=== PATIENT | male | born 1930 | race Caucasian/White ===

== ENCOUNTER 2017-08-25 05:52 | Day surgery (SDC) | payer MEDICARE, BC ==
--- NOTE | 2017-06-22 19:06 | HP ---
CC: Dr. Mcneil * PREOPERATIVE HISTORY AND PHYSICAL: DATE OF ADMISSION: 07/07/17 This patient is scheduled for same-day surgery admission by Dr. Ackerman on 07/07/17. DATE OF EXAM: 06/22/17. ATTENDING SURGEON: Dr. Alexandre Ackerman * (dictated by Naomi Bledsoe NP). CHIEF COMPLAINT: Right inguinal hernia. HISTORY OF PRESENT ILLNESS: The patient is an 87-year-old male, recently evaluated by Dr. Ackerman for right inguinal hernia. The patient noticed a bulge in the right groin approximately 10 days ago, one day after he was throwing apples to deer in his backyard. He states that he was throwing them in an awkward way. He denies any pain at the site and it reduces spontaneously when he lies down. He denies any signs or symptoms to suggest incarceration or strangulation. Previous abdominal surgery was appendectomy in [address]. Dr. Ackerman examined the patient and noted a reducible right inguinal hernia bulge. He reviewed the findings with the patient and has recommended open right inguinal hernia repair with mesh as a same-day surgery procedure. Dr. Ackerman described the nature of the surgical procedure, the rationale for the procedure, the relevant risks and benefits and today I reviewed the expected postoperative care and recovery and provided written instructions as well. The patient has had a chance to ask questions and stated that he understands the information and is satisfied with the answers given to his questions. He will sign surgical consent on the day of surgery. PAST MEDICAL HISTORY: Significant for hypertension, benign prostatic hypertrophy, essentially asymptomatic degenerative joint disease, and rheumatoid arthritis. PAST SURGICAL HISTORY: Appendectomy in 193. MEDICATIONS: 1. Folic acid 1 mg p.o. daily. 2. Flomax 0.4 mg p.o. daily. 3. Verapamil ER 240 mg p.o. daily. 4. Multivitamin with minerals 1 tablet daily. 5. Vitamin D3, 1000 International Units 2 tablets daily. 6. Triamterene and hydrochlorothiazide 37.5/25 mg 1 tablet daily. ALLERGIES: AMOXICILLIN and PENICILLIN have caused anaphylaxis; IBUPROFEN causes GI upset, CIPRO caused muscle pain and dizziness. FAMILY HISTORY: No known anesthesia complications, bleeding tendencies or clotting disorders. SOCIAL HISTORY: He is ; he has a friend, who will accompany him on the day of surgery and will stay with him postoperatively. He is a former smoker; he denies the use of alcohol or other substances. REVIEW OF SYSTEMS: Constitutional: No fevers or chills. No excessive fatigue or weight loss. Endocrine: No diabetes or thyroid disease. Hematologic: No easy bruising or bleeding. No previous blood transfusions. Respiratory: No dyspnea on exertion. No chronic cough. Cardiovascular: No anginal chest pain or palpitations. Gastrointestinal: No nausea, vomiting, diarrhea, GI bleeding, or constipation. No change in bowel habits. No heartburn. Genitourinary: Benign prostatic hypertrophy, followed by Dr. Hodge. No pain with urination. Musculoskeletal: Asymptomatic degenerative joint disease and rheumatoid arthritis at this time. Neurologic: No headache, blurred vision, areas of focal weakness or numbness. Normal gait. General: No previous anesthesia complications. No history of deep vein thrombosis or pulmonary embolism. No history of blood transfusions. PHYSICAL EXAMINATION GENERAL SURVEY: The patient is an 87-year-old male, well developed, well nourished, in no acute distress. VITAL SIGNS: Height 67 inches, weight 206 pounds, body mass index 32.3. Blood pressure 140/70, pulse 80 and regular, respiratory rate 16. HEENT: Benign. NECK: Supple. No cervical lymphadenopathy. LUNGS: Breath sounds bilaterally clear and equal. HEART: Regular rate and rhythm. No murmurs, or rubs. ABDOMEN: Soft, nondistended, nontender throughout. Well-healed surgical scar, right lower quadrant. Inguinal exam as done by Dr. Ackerman, revealed a reducible right inguinal hernia. No evidence of left inguinal hernia. Testicles normally descended. BACK: No CVA tenderness. EXTREMITIES: Warm without edema or skin ulcerations. NEUROLOGIC: Alert and oriented x3, steady gait. SKIN: Warm, dry, intact. IMPRESSION: Right inguinal hernia. PLAN: Same-day surgery admission to Dr. Ackerman's service on 07/07/17 , for open right inguinal hernia repair with mesh. NILSON BLEDSOE NP [id number]/[facility] #: [id number] [facility]PITALArash
--- NOTE | 2017-08-16 13:39 | HP ---
AMENDED REPORT NOW INCLUDES COSIGNER DESIGNATION - ESIGNED BEFORE ADJUSTMENT CC: Dr. Mcneil; Dr. Alexandre Mora * PREOPERATIVE HISTORY AND PHYSICAL: DATE OF ADMISSION: 08/25/17 - This patient is scheduled for same-day surgery admission by Dr. Ackerman, on 08/25/17. DATE OF PREOPERATIVE HISTORY AND PHYSICAL EXAMINATION: 08/16/17. ATTENDING SURGEON: Dr. Alexandre Ackerman* (dictated by Naomi Bledsoe NP). CHIEF COMPLAINT: Right inguinal hernia. HISTORY OF PRESENT ILLNESS: The patient is an 87-year-old male known to Dr. Ackerman with right inguinal hernia. The patient was initially scheduled for open repair of the right inguinal hernia with mesh in early July of 2017, but his EKG on pre- admission testing revealed atrial fibrillation and he was referred for cardiology workup. He has completed the workup and has been cleared to proceed with open repair of the right inguinal hernia with mesh as a same-day surgery procedure. He denies any current pain in the right inguinal region and the hernia reduces spontaneously when he lies down. He denies any signs or symptoms to suggest incarceration or strangulation. Previous abdominal surgery was appendectomy in [address]. Dr[address] Ackerman has examined the patient and notes a reducible right inguinal hernia bulge. He reviewed the findings with the patient and has recommended open right inguinal hernia repair with mesh as a same-day surgery procedure. Dr. Ackerman described the nature of the surgical procedure, the rationale for the procedure, the relevant risks and benefits, and today, I reviewed the expected postoperative care and recovery and provided written instructions as well. The patient has had a chance to ask questions and stated that he understands the information and is satisfied with the answers given to his questions. He will sign surgical consent on the day of surgery. PAST MEDICAL HISTORY: Significant for atrial fibrillation, hypertension, benign prostatic hypertrophy, heartburn, degenerative joint disease. PAST SURGICAL HISTORY: Open appendectomy in 1939. MEDICATIONS: 1. Eliquis 5 mg p.o. b.i.d. The patient was instructed to hold Eliquis on , 08/24/17, 08/25/17, and 08/26/17, and he was instructed to resume the Eliquis on the morning of 08/27/17. 2. Flomax 0.4 mg p.o. daily. 3. Folic acid 1 mg p.o. daily. 4. Multivitamin tablet daily. 5. Vitamin D3 1000 International Units 2 tablets daily. 6. Triamterene and hydrochlorothiazide 37.5/25 mg p.o. daily. ALLERGIES: AMOXICILLIN and PENICILLIN have caused anaphylaxis, IBUPROFEN causes GI upset, CIPRO caused muscle pain and dizziness. FAMILY HISTORY: No known anesthesia complications, bleeding tendencies, or clotting disorders. SOCIAL HISTORY: He is . He has a friend who will accompany him on the day of surgery and stay with him postoperatively. He is a former smoker, he denies use of alcohol or other substances. REVIEW OF SYSTEMS: Constitutional: No fevers or chills, no excessive fatigue or weight loss. Endocrine: No diabetes or thyroid disease. Hematologic: No previous blood transfusions; while he has been on Eliquis, he has noticed easy bruising and bleeding. Respiratory: No dyspnea on exertion. No chronic cough. Cardiovascular: No anginal chest pain or palpitations; he has been cleared by Dr. Mora from the [facility] to proceed with surgery; he was started on Eliquis for atrial fibrillation in July 2017; he underwent echocardiogram, 07/29/17, which revealed normal left ventricular size , [id number] LVH with ejection fraction of 60% to 65%. He underwent chemical nuclear stress test, which was within normal limits. There was no evidence of ischemia and there was no convincing evidence of infarction and there was normal left ventricular function. Gastrointestinal: No nausea, vomiting, diarrhea, GI bleeding, or constipation. No change in bowel habits. No recent heartburn. Genitourinary: Benign prostatic hypertrophy followed by Dr. Hodge. No dysuria at this time. Musculoskeletal: Asymptomatic degenerative joint disease. Neurologic: No headache or blurred vision or areas of focal weakness or numbness. Normal gait. General: No previous anesthesia complications. No history of deep vein thrombosis or pulmonary embolism. No history of blood transfusions. PHYSICAL EXAMINATION GENERAL SURVEY: The patient is an 87-year-old male, well-developed, well- nourished, in no acute distress. VITAL SIGNS: Height 67 inches, weight 196 pounds, blood pressure 118/64, pulse 60 and irregular, respiratory rate 16, temperature 97.3 tympanic, body mass index 30. HEENT: Benign. NECK: Supple. No cervical lymphadenopathy. LUNGS: Breath sounds bilaterally clear and equal. HEART: Slightly irregular rate and rhythm. No murmurs or rubs appreciated. ABDOMEN: Soft. Active bowel sounds. Nondistended and nontender throughout. Well- healed surgical scar, right lower quadrant; inguinal exam as done by Dr. Ackerman revealed a reducible right inguinal hernia, no evidence of left inguinal hernia; testicles normally descended. BACK: No CVA tenderness. EXTREMITIES: Warm without edema or skin ulcerations. NEUROLOGIC: Alert and oriented x3. Steady gait. SKIN: Warm, dry, and intact. IMPRESSION: Right inguinal hernia. PLAN: Same-day surgery admission to Dr. Ackerman's service, on 08/25/17 , for open right inguinal hernia repair with mesh. The patient will hold Eliquis preoperatively on 08/23/17, 08/24/17, and 08/25/17, and resume the Eliquis, on 08/27/17, in the morning. NILSON BLEDSOE, SMITHA [id number]/[facility] #: [id number] BEN
[~2017-08-25 05:52] MED LIST: Buffered Lidocaine 0.9% SYRIN* 5 ML/SYR SYRINGE INTRADERM ONE
[2017-08-25] MEDS ORDERED: Clindamycin 900 MG IVPREMIX(* 0 MG/0 ML SDV IV ONE (06:10)
[2017-08-25] MEDS ORDERED: Buffered Lidocaine 0.9% SYRIN* 5 ML/SYR SYRINGE ONE (06:11)
[2017-08-25] MEDS ORDERED: Lidocaine 1% INJ* 10 MG/ML 30 ML SDV ONE (07:18)
[2017-08-25] MEDS ORDERED: Bupivacaine 0.25% SDV* 30 ML ONE (07:18)
[2017-08-25] MEDS ORDERED: fentaNYL* 50 MCG/ML 2 ML VIAL (100 MCG VIAL) ONE (07:57)
[2017-08-25] MEDS ORDERED: Midazolam* 1 MG/ML 2 ML VIAL (2 MG) ONE ×2 (07:57→08:22)
[2017-08-25] MEDS ORDERED: Vancomycin(*) 1,000 MG in NS 0.9% 250 ML* 250 ML IVPB ONE (08:00)
[2017-08-25] MEDS ORDERED: Glycopyrrolate IV* 0.2 MG/ML 1 ML VIAL ONE (08:42)
[2017-08-25] MEDS ORDERED: Naloxone* 0.4 MG/ML 1 ML VIAL IV PRN (09:00)
[2017-08-25] MEDS ORDERED: Propofol* 10 MG/ML 20 ML BTL IV PUSH ONE (09:07)
--- NOTE | 2017-08-25 09:23 | BRIEFOPN ---
Brief Operative Note - Surgery Procedures: Procedures Pre-OP Diagnoses: Right inguinal hernia Post-op Diagnosis: same Procedure: open Right inguinal hernia repair with mesh Surgeon: Meka Asst: Lubna Anethesia: Local MAC EBL: 50cc IVF: crystalloid Specimen: none Drains: none
[2017-08-25] MEDS ORDERED: oxyCODONE/Acetamin 5/325 MG* TAB PO PRN (09:43)
[2017-08-25] MEDS ORDERED: oxyCODONE/Acetamin 5/325 MG* TAB ONE (09:49)
[2017-08-25 10:18] VITALS: BP 170/69
--- NOTE | 2017-09-16 16:50 | OP ---
CC: Dr. Paulo Mcneil * DATE OF OPERATION: 08/25/17 - [facility] Please note this is a late entry. DATE OF : 30 SURGEON: Alexandre Ackerman MD CORE CARRIER: JENARO Calvo ANESTHESIA: Local MAC. PRE-OP DIAGNOSIS: Right inguinal hernia. POST-OP DIAGNOSIS: Right inguinal hernia. OPERATIVE PROCEDURE: Open right inguinal hernia repair with mesh. ESTIMATED BLOOD LOSS: 50 cc of blood loss. FLUIDS: Crystalloid fluid was given. SPECIMEN: None. DRAINS: None. DESCRIPTION OF PROCEDURE: The patient was identified in the preoperative area, he was marked, brought to the OR, placed on the operating table in supine position. Anesthesia was delivered. The patient had preoperative antibiotics given. The right groin was clipped of hair and prepped and draped in standard surgical fashion and time-out was performed. An inguinal incision was made. This was deepened down through all the layers until we got down to the aponeurosis of the external oblique. This was incised along the fibers and flaps were made both cephalad and caudad. We isolated the cord structures and then set out looking for a hernia. We found a small indirect hernia sac. This was reduced. The floor of the inguinal canal appeared mildly weakened. We then opened up a right-sided mesh, Parietex version. This was placed over the herniation and tacked appropriately. We irrigated this. Hemostasis was excellent and then reapproximated the external oblique aponeurosis and closed the skin in the standard fashion. Sterile dressing was applied. The patient tolerated the procedure well, was transferred to the PACU in stable condition. [id number]/[facility] #: [id number] [facility]
== END 2017-08-25 10:21 | disposition home or self-care (01) ==
LOC: OR 05:52
PROVIDERS: ATTEND Surgery
DX: K40.90 Unilateral inguinal hernia, without obstruction or gangrene, not specified as recurrent (principal); I10 Essential (primary) hypertension; I48.91 Unspecified atrial fibrillation; N40.0 Benign prostatic hyperplasia without lower urinary tract symptoms; M06.9 Rheumatoid arthritis, unspecified; Z87.891 Personal history of nicotine dependence; Z79.01 Long term (current) use of anticoagulants; M19.90 Unspecified osteoarthritis, unspecified site
CPT/HCPCS: A9270-GY; C1781; J2250; J2704; J3010; J3370

== ENCOUNTER → 2018-02-16 07:02 | Day surgery (SDC) | payer MEDICARE, BC ==
--- NOTE | 2018-02-10 20:59 | HP ---
CC: Paulo Mcneil MD; Alexandre Mora DO * ADMITTING HISTORY AND PHYSICAL: DATE OF ADMISSION: 02/16/18 ADMITTING DIAGNOSES: 1. Prostate enlargement. 2. Urinary retention. PLANNED PROCEDURE: Transurethral resection of prostate. SURGEON: Dr. Hodge. HISTORY OF PRESENT ILLNESS: Papito Dow is an 87-year-old gentleman with a longstanding history of prostate enlargement. He has been on Flomax as well as finasteride, but for the last 4 to 5 months, he had an indwelling Trivedi catheter and has failed multiple voiding trials. He is now being brought in for transurethral resection of prostate in an attempt to try to get rid of the Trivedi catheter. PAST MEDICAL HISTORY: Significant for: 1. Atrial fibrillation. 2. Rheumatoid arthritis. 3. Hypertension. 4. BPH. 5. History of CVA. MEDICATIONS ON ADMISSION: Include: 1. Tamsulosin 0.4 mg. 2. Proscar 5 mg, which he has stopped as of the last week. 3. Eliquis 5 mg twice a day, which is currently on hold. 4. Folic acid 1 mg daily. ALLERGIES AND INTOLERANCES: IBUPROFEN, AMOXICILLIN, CIPRO (leg cramps), and CLINDAMYCIN. PHYSICAL EXAMINATION GENERAL: Reveals a pleasant elderly gentleman. VITAL SIGNS: Blood pressure is 162/90, pulse 95 per minute, oxygen saturation 98% on room air, temperature 97. LUNGS: Clear bilaterally. CARDIOVASCULAR: Irregularly irregular. No murmurs. ABDOMEN: Soft without masses. A Trivedi catheter is in place draining clear urine. NEUROLOGIC: He is alert and oriented. IMPRESSION: I had a detailed discussion with Mr. Dow regarding the transurethral resection of prostate and possible risks of bleeding, infection, persistent urinary retention, and urinary incontinence. I also discussed the higher risk of anesthesia complications given his age and medical history including stroke and adverse cardiac events and he appears to understand and wishes to proceed as planned. [id number]/[facility] #: [id number] MTDD
[~2018-02-16 07:02] MED LIST changes: +Bupivacaine-MPF SPINAL* 7.5 MG/ML - 2ML AMP ONE; +Gentamicin ADULT (*) 160 MG in NS 0.9% 100 ML* 100 ML IVPB ONE; +IVPREMIX IVPB ONE; +LEVOFLOXACIN 500 MG IVPB ONE; +Lidocaine 2% PF * 5 ML VIAL ONE; +hydrALAZINE IV* 20 MG/ML VIAL IV SLOW PU ONE; +hydrALAZINE IV* 20 MG/ML VIAL ONE; +hydrALAZINE TAB* 10 MG PO ONE
[2018-02-16 07:32] VITALS: BP 213/88
== END | disposition home or self-care (01) ==
LOC: SP 07:02 → OR 07:02
PROVIDERS: ATTEND Urology
DX: N40.0 Benign prostatic hyperplasia without lower urinary tract symptoms (principal); R33.9 Retention of urine, unspecified; Z53.9 Procedure and treatment not carried out, unspecified reason; M06.9 Rheumatoid arthritis, unspecified; I10 Essential (primary) hypertension; Z86.73 Personal history of transient ischemic attack (TIA), and cerebral infarction without residual deficits; I48.91 Unspecified atrial fibrillation; Z79.899 Other long term (current) drug therapy
CPT/HCPCS: A9270-GY; J0360; J1580; J1956

== ENCOUNTER 2018-04-13 05:57 | Observation (INO) | payer MEDICARE, BC ==
--- NOTE | 2018-04-05 21:34 | HP ---
CC: Dr. Alexandre Mora; Dr. Paulo Mcneil * ADMITTING HISTORY AND PHYSICAL: DATE OF ADMISSION: 04/13/18 ADMITTING DIAGNOSES: 1. Urinary retention. 2. Prostate enlargement. PLANNED PROCEDURE: Transurethral resection of prostate. SURGEON: Dr. Hodge. HISTORY OF PRESENT ILLNESS: Papito Dwo is an 88-year-old gentleman with a longstanding history of prostate enlargement, who has failed medical therapy and has had urinary catheter, which has to be changed periodically and has failed multiple voiding trials. He was scheduled for transurethral resection of prostate on 02/16/18, but could not have surgery because he was hypertensive and subsequently was evaluated by his core loader and started on amlodipine 10 mg a day. He is now being brought in for transurethral resection of prostate. PAST MEDICAL HISTORY: Significant for: 1. Hypertension. 2. Atrial fibrillation. 3. BPH. 4. History of rheumatoid arthritis. 5. History of cerebrovascular accident. MEDICATIONS: On admission: 1. Amlodipine 10 mg a day. 2. Proscar 5 mg a day. 3. Eliquis, which is currently on hold. 4. Tamsulosin, which is also on hold. 5. Folate acid 1 mg a day. ALLERGIES AND INTOLERANCES: AMOXICILLIN, CIPRO, CLINDAMYCIN, and IBUPROFEN ( most of these intolerances and not true allergies). CLINDAMYCIN is only one which is a true allergy in the form of hives. PHYSICAL EXAMINATION GENERAL: Reveals a pleasant elderly gentleman. VITAL SIGNS: Blood pressure is 130/80, pulse 72 per minute, temperature 97.4, oxygen saturation 96% on room air. CARDIOVASCULAR: S1, S2. No murmurs. LUNGS: Clear bilaterally. ABDOMEN: Soft without masses. A Trivedi catheter is in place. IMPRESSION: An 88-year-old gentleman with longstanding problems related to prostate enlargement, who has failed medical therapy and has persistent urinary retention. Plan is transurethral resection of prostate. [id number]/[facility] #: [id number] [facility]
[~2018-04-13 05:57] MED LIST changes: -Bupivacaine-MPF SPINAL* 7.5 MG/ML - 2ML AMP ONE; -Gentamicin ADULT (*) 160 MG in NS 0.9% 100 ML* 100 ML IVPB ONE; -IVPREMIX IVPB ONE; -LEVOFLOXACIN 500 MG IVPB ONE; -Lidocaine 2% PF * 5 ML VIAL ONE; -hydrALAZINE IV* 20 MG/ML VIAL IV SLOW PU ONE; -hydrALAZINE IV* 20 MG/ML VIAL ONE; -hydrALAZINE TAB* 10 MG PO ONE
[2018-04-13] MEDS ORDERED: Dexamethasone IV* 4 MG/ML 1 ML (4 MG) IV SLOW PU ONE (06:00)
[2018-04-13] MEDS ORDERED: Famotidine IV* 10 MG/ML 2 ML (20 mg) IV ONE (06:00)
[2018-04-13] MEDS ORDERED: Famotidine IV* 10 MG/ML 2 ML (20 mg) ONE (06:10)
[2018-04-13] MEDS ORDERED: Dexamethasone IV* 4 MG/ML 1 ML (4 MG) ONE (06:10)
[2018-04-13] MEDS ORDERED: Gentamicin ADULT (*) 160 MG in NS 0.9% 100 ML* 100 ML IVPB ONE ×2 (07:00→20:00)
[2018-04-13] MEDS ORDERED: Midazolam* 1 MG/ML 2 ML VIAL (2 MG) ONE (07:33)
[2018-04-13] MEDS ORDERED: Furosemide IV* 10 MG/ML 2 ML VIAL (20 MG) ONE (08:26)
[2018-04-13] MEDS ORDERED: fentaNYL* 50 MCG/ML 2 ML VIAL (100 MCG VIAL) IV PRN (08:30)
[2018-04-13] MEDS ORDERED: Ondansetron INJ* 2 MG/ML VIAL IV PRN (08:30)
[2018-04-13] MEDS ORDERED: Naloxone* 0.4 MG/ML 1 ML VIAL IV PRN (08:30)
[2018-04-13] MEDS: Folic Acid TAB* 1 MG PO SCH (10:28)
[2018-04-13] MEDS ORDERED: amLODIPine TAB* 5 MG PO SCH (18:00)
--- NOTE | 2018-04-13 22:28 | OP ---
CC: Dr. Mcneil; Dr. Mora * DATE OF OPERATION: 04/13/18 - ROOM #337 DATE OF : 30 SURGEON: Eulalio Hodge MD ANESTHESIOLOGIST: Dr. Rasmussen. ANESTHESIA: Spinal. PRE-OP DIAGNOSES: 1. Benign prostatic hypertrophy. 2. Urinary retention. POST-OP DIAGNOSES: 1. Benign prostatic hypertrophy. 2. Urinary retention. OPERATIVE PROCEDURE: 1. Transurethral resection of prostate. 2. Transurethral incision of bladder neck. INDICATIONS: Papito Dow is an 88-year-old gentleman with persistent urinary retention secondary to BPH. COMPLICATIONS: None. ESTIMATED BLOOD LOSS: Approximately 100 cc. CATHETER: 24-Malian Trivedi. DESCRIPTION OF PROCEDURE: After induction of spinal anesthesia, the patient was placed in dorsal lithotomy position. Sequential compression devices were in place and functioning. Initial evaluation revealed a large obstructing vascular prostate with a trabeculated bladder and I expected inflammatory response secondary to an indwelling Trivedi catheter. Transurethral resection of prostate was carried out from the bladder neck, down to the veru. The floor of the prostate was resected, followed by the lateral lobe tissue and then the anterior tissue. At no point, was the resection carried distal to the veru in an effort to avoid any potential injury to the sphincter. The resected tissue was removed from the bladder using a Ellik evacuator. Hemostasis appeared satisfactory at the end of the procedure and a 24-Malian Trivedi was introduced without difficulty and connected to drainage. The patient tolerated the procedure satisfactorily and was transferred back to the recovery area in stable condition. [id number]/[facility] #: [id number] MTDD
[2018-04-14 05:38] LABS: EGFR Non-African American 78.6 (>60)
[2018-04-14 08:24] VITALS: BP 138/56
[2018-04-14] MEDS: Folic Acid TAB* 1 MG PO SCH (09:27)
--- NOTE | 2018-04-14 12:02 | DS ---
CC: Dr. Mcneil * DATE OF ADMISSION: 04/13/2018. DATE OF DISCHARGE: 04/14/2018. AGE: 88-year-old male. ADMITTING DIAGNOSES: 1. BPH. 2. Urinary retention. SURGICAL PROCEDURES ON THIS ADMISSION: On 04/13/2018, transurethral resection of prostate and transurethral incision of bladder neck. ADMITTING HISTORY AND HOSPITAL COURSE: Papito Dow is an 88-year-old gentleman with a long-standing history of BPH. He has had urinary retention and has failed multiple voiding trials and medical therapy. For details, see admitting history and physical. On 04/13/2018, Mr. Dow underwent transurethral resection of prostate under spinal anesthesia. The surgery was smooth and uneventful. He was kept overnight and observed and was rechecked on April 13 in the evening and again on April 14 in the morning and was doing well and the Trivedi catheter was draining clear urine. Electrolytes were normal and he was discharged home with a Trivedi catheter for outpatient follow-up as per protocol. [id number]/[facility] #: [id number] BEN
== END 2018-04-14 11:30 | disposition home or self-care (01) ==
LOC: OR 05:57 → SSU 10:13 → UNDOADMIN 10:13
PROVIDERS: ADMIT Urology; ATTEND Urology
PROC: 0VT08ZZ Resection of Prostate, Via Natural or Artificial Opening Endoscopic (ICD-10-PCS; principal; 2018-04-13 07:30)
DX: N40.1 Benign prostatic hyperplasia with lower urinary tract symptoms (principal); R33.8 Other retention of urine; I10 Essential (primary) hypertension; I48.91 Unspecified atrial fibrillation; M06.9 Rheumatoid arthritis, unspecified; Z86.73 Personal history of transient ischemic attack (TIA), and cerebral infarction without residual deficits; Z79.899 Other long term (current) drug therapy; Z79.01 Long term (current) use of anticoagulants; Z88.0 Allergy status to penicillin; Z88.1 Allergy status to other antibiotic agents; Z88.6 Allergy status to analgesic agent
CPT/HCPCS: 36415; 80048; 88305; 96365; A9270-GY; G0378; J1100; J1580; J1940; J2250

== ENCOUNTER 2018-06-13 14:13 | Emergency (ER) | payer MEDICARE, BC ==
[2018-06-13 14:47] VITALS: BP 176/69
--- NOTE | 2018-06-13 15:10 | UC ---
Minor Trauma HPI - HPI Summary HPI Summary: Patient presents with a past medical history of CAD and in on Eliqus. He had a mechanical fall today and fell forward and fell on his closed fist nd presents with pain over the sternum. He denies any head or neck injury no LOC. - History of Current Complaint Chief Complaint: UCTrauma Stated Complaint: FALL/STERNUM INJURY Time Seen by Provider: 06/13/18 14:42 Hx Obtained From: Patient Onset/Duration: Sudden Onset, Lasting Hours Onset Of Pain: Immediate Severity Initially: Mild Severity Currently: Mild Pain Intensity: 9 Mechanism Of Injury: Blunt Trauma, Direct Blow Aggravating Factor(s): Other: - palpation Alleviating Factor(s): Nothing - Allergies/Home Medications Allergies/Adverse Reactions: Allergies Allergy/AdvReac Type Severity Reaction Status Date / Time ciprofloxacin [From Cipro] Allergy Muscle Ache Verified 06/13/18 14:40 clindamycin Allergy Hives Verified 06/13/18 14:40 Penicillins Allergy Anaphylatic Verified 06/13/18 14:40 Shock ibuprofen AdvReac GI Upset Verified 06/13/18 14:40 PMH/Surg Hx/FS Hx/Imm Hx Previously Healthy: Yes - Surgical History Surgical History: Yes Surgery Procedure, Year, and Place: appendectomy 193. right inguinal hernia repair with mesh aug 2017 [place] [facility] [place] 2018 - Family History Known Family History: Negative: Cardiac Disease, Hypertension - Social History Occupation: Retired Lives: Alone Alcohol Use: None Substance Use Type: None Smoking Status (MU): Former Smoker Type: Cigarettes Amount Used/How Often: 3/4 pack for 20 yrs Have You Smoked in the Last Year: No When Did the Patient Quit Smoking/Using Tobacco: 1960 Review of Systems All Other Systems Reviewed And Are Negative: Yes Constitutional: Positive: Negative Skin: Positive: Negative Eyes: Positive: Negative ENT: Positive: Negative Respiratory: Positive: Negative Cardiovascular: Positive: Negative Gastrointestinal: Positive: Negative Genitourinary: Positive: Negative Motor: Positive: Negative Neurovascular: Positive: Negative Musculoskeletal: Positive: Other: - mid-sternal pain Neurological: Positive: Negative Psychological: Positive: Negative Physical Exam Triage Information Reviewed: Yes Appearance: Well-Appearing Vital Signs: Initial Vital Signs Temp 98.5 F 06/13/18 14:41 Pulse 63 06/13/18 14:41 Resp 18 06/13/18 14:41 BP 176/69 11/12/18 14:41 Pulse Ox 100 06/13/18 14:41 Eye Exam: Normal ENT Exam: Normal Neck exam: Normal Neck: Positive: 1 Respiratory Exam: Normal Cardiovascular Exam: Normal Abdominal Exam: Normal Musculoskeletal Exam: Normal Neurological Exam: Normal Psychological Exam: Normal Skin Exam: Normal Diagnostics - Laboratory ABG Interpretation: RBBB, no changes to prior read by Dr. Lora. Minor Trauma Course/Dx - Course Course Of Treatment: Patient reports a mechanical fall and he landed on his own fist. He denies any head or neck injury and had no LOC. He presents with sternal pain, ekg was obtained and read by Dr. Lora as unchanged from prior EKG on file. Chest x-ray also negative. Discussed with patient and if he wanted any additional testing he would need to go to the ER. I also discussed with him that if his pain changed, became worse or began to radiate he should roxana 911 immediately. He ambulated without ataxia in the clinic, verbalized understanding of and in agreement with the discharge plan. - Differential Dx/Diagnosis Differential Diagnosis/HQI/PQRI: Contusion(s), Other - fall Provider Diagnoses: contusion. fall Discharge - Sign-Out/Discharge Documenting (check all that apply): Patient Departure All imaging exams completed and their final reports reviewed: Yes - Discharge Plan Condition: Stable Disposition: HOME Patient Education Materials: Contusion in Adults (ED), Fall Prevention (ED) Referrals: Paulo Mcneil MD [Primary Care Provider] - Additional Instructions: Follow up in 24 hours with PCP, or go to the ER if symptoms worsen. - Billing Disposition and Condition Condition: STABLE Disposition: Home - Attestation Statements Document Initiated by Scribe: No Scribe Documentation Reviewed: No
== END 2018-06-13 15:47 | disposition home or self-care (01) ==
LOC: UCEAST 14:13
DX: S20.219A Contusion of unspecified front wall of thorax, initial encounter (principal); I25.10 Atherosclerotic heart disease of native coronary artery without angina pectoris; Z79.01 Long term (current) use of anticoagulants; Z88.1 Allergy status to other antibiotic agents; Z88.0 Allergy status to penicillin; Z88.6 Allergy status to analgesic agent; Z87.891 Personal history of nicotine dependence; W19.XXXA Unspecified fall, initial encounter; Y92.9 Unspecified place or not applicable
CPT/HCPCS: 71046; 93005; 99211; G0463

== ENCOUNTER 2019-01-02 19:46 | Inpatient (IN) | payer MEDICARE, BC ==
--- OUTSIDE RECORDS SUMMARY | 2019-01-02 20:05 | XMS REPORT | Continuity of Care Document ---
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 Potassium 3.9 mEq/L 3.6-5.5 Chloride 108 mEq/L 94-112 Carbon Dioxide 28 mEq/L 21-32 Glucose 114 mg/dL High 70-105 4 BUN 43 mg/dL High 6-26 Creatinine 2.0 mg/dL High 0.6-1.4 BUN/Creat Ratio 21.5 CALC 8.0-36.0 Calcium 9.7 mg/dL 8.6-10.2 Total Protein 7.2 g/dL 6.4-8.3 Albumin 4.8 g/dL 3.8-5.5 Globulin 2.4 g/dL 2.0-4.8 A/G Ratio 2.0 CALC 0.6-2.3 Alk. Phosphatase 36 U/L 22-95 Alt (SGPT) 12 U/L 7-35 Ast (Sgot) 17 U/L 5-34 Total Bilirubin 0.8 mg/dL 0.2-1.3 GFR Non- 34 ml/min/1.73m^ Low >=60 GFR 41 ml/min/1.73m^ Low >=60 Basic Metabolic Profile 10/12/2017 [facility](fma) Sodium 141 mEq/L 134-149 Potassium 3.6 mEq/L 3.6-5.5 Chloride 104 mEq/L 94-112 Carbon Dioxide 28 mEq/L 21-32 Glucose 134 mg/dL High 70-105 BUN 34 mg/dL High 6-26 Creatinine 1.8 mg/dL High 0.6-1.4 BUN/Creat Ratio 18.9 CALC 8.0-36.0 Calcium 9.6 mg/dL 8.6-10.2 GFR Non- 38 ml/min/1.73m^ Low >=60 GFR 46 ml/min/1.73m^ Low >=60 Laboratory test finding 07/02/2017 [facility](fma) TSH 2.12 mIU/L 0.50-6.00 Free T4 1.07 ng/dL 0.75-1.54 Comprehensive Metabolic 07/02/2017 [facility](fma) Sodium 144 mEq/L 134-149 Prof Potassium 4.0 mEq/L 3.6-5.5 Chloride 107 mEq/L 94-112 Carbon Dioxide 24 mEq/L 21-32 Glucose 95 mg/dL 70-105 BUN 28 mg/dL High 6-26 5 Creatinine 1.1 mg/dL 0.6-1.4 BUN/Creat Ratio 25.5 CALC 8.0-36.0 Calcium 9.4 mg/dL 8.6-10.2 Total Protein 6.4 g/dL 6.4-8.3 Albumin 4.2 g/dL 3.8-5.5 Globulin 2.2 g/dL 2.0-4.8 A/G Ratio 1.9 CALC 0.6-2.3 Alk. Phosphatase 40 U/L 22-95 Alt (SGPT) 14 U/L 7-35 Ast (Sgot) 18 U/L 5-34 Total Bilirubin 0.4 mg/dL 0.2-1.3 GFR Non- >60 ml/min/1.73m^ >=60 GFR >60 ml/min/1.73m^ >=60 Basic Metabolic Panel 06/25/2017 [facility] [place] 139 mmol/L N 133-145 Potassium 3.8 mmol/L N 3.5-5.0 Chloride 105 mmol/L N 101-111 Co2 Carbon Dioxide 27 mmol/L N 22-32 Anion Gap 7 mmol/L N 2-11 Glucose 115 mg/dL High 70-100 Blood Urea Nitrogen 25 mg/dL High 6-24 Creatinine 1.16 mg/dL N 0.67-1.17 BUN/Creatinine Ratio 21.6 High 8-20 Calcium 9.1 mg/dL N 8.6-10.3 Egfr Non- 59.6 >60 Egfr 76.6 >60 6 CBC No Diff 06/25/2017 [facility] [place] White Blood Count 6.9 10^3/uL N 3.5-10.8 Red Blood Count 4.28 10^6/uL N 4.0-5.4 Hemoglobin 13.0 g/dL Low 14.0-18.0 Hematocrit 38 % Low 42-52 Mean Corpuscular Volume 88 fL N 80-94 Mean Corpuscular Hemoglobin 30 pg N 27-31 Mean Corpuscular HGB Conc 34 g/dL N 31-36 Red Cell Distribution Width 14 % N 10.5-15 Platelet Count 197 10^3/uL N 150-450 Mean Platelet Volume 9 um3 N 7.4-10.4 Laboratory test 04/09/2016 [facility] [place] Stool Culture SEE RESULT BELOW 7, 8 finding Laboratory test 04/07/2016 [facility] [place] Lyme Disease Negative N Negative 9 finding Serology Laboratory test 02/21/2016 [facility] [place] Stool Culture SEE RESULT BELOW 10, 11 finding CBC Auto Diff 02/21/2016 [facility] [place] White Blood Count 6.5 10^3/uL N 3.5-10.8 Red Blood Count 4.64 10^6/uL N 4.0-5.4 Hemoglobin 14.2 g/dL N 14.0-18.0 Hematocrit 42 % N 42-52 Mean Corpuscular Volume 89 fL N 80-94 Mean Corpuscular Hemoglobin 31 pg N 27-31 Mean Corpuscular HGB Conc 34 g/dL N 31-36 Red Cell Distribution Width 13 % N 10.5-15 Platelet Count 164 10^3/uL N 150-450 Mean Platelet Volume 9 um3 N 7.4-10.4 Abs Neutrophils 3.9 10^3/uL N 1.5-7.7 Abs Lymphocytes 2.0 10^3/uL N 1.0-4.8 Abs Monocytes 0.4 10^3/uL N 0-0.8 Abs Eosinophils 0.1 10^3/uL N 0-0.6 Abs Basophils 0.1 10^3/uL N 0-0.2 Abs Nucleated RBC 0 10^3/uL N Granulocyte % 60.1 % N 38-83 Lymphocyte % 30.3 % N 25-47 Monocyte % 6.8 % N 1-9 Eosinophil % 1.8 % N 0-6 Basophil % 1.0 % N 0-2 Nucleated Red Blood Cells % 0.1 N Comp Metabolic Panel 02/21/2016 [facility] Sodium 136 mmol/L N 133-145 Potassium 3.8 mmol/L N 3.5-5.0 Chloride 103 mmol/L N 101-111 Co2 Carbon Dioxide 27 mmol/L N 22-32 Anion Gap 6 mmol/L N 2-11 Glucose 105 mg/dL High 70-100 Blood Urea Nitrogen 21 mg/dL N 6-24 Creatinine 1.10 mg/dL N 0.67-1.17 BUN/Creatinine Ratio 19.1 N 8-20 Calcium 9.4 mg/dL N 8.6-10.3 Total Protein 6.6 g/dL N 6.4-8.9 Albumin 4.2 g/dL N 3.2-5.2 Globulin 2.4 g/dL N 2-4 Albumin/Globulin Ratio 1.8 N 1-3 Total Bilirubin 0.60 mg/dL N 0.2-1.0 Alkaline Phosphatase 39 U/L N 34-104 Alt 16 U/L N 7-52 Ast 20 U/L N 13-39 Egfr Non- 63.6 N >60 Egfr 81.8 N >60 12 Laboratory test finding 02/21/2016 [facility] [place] Magnesium 2.1 mg/dL N 1.9-2.7 Fecal Lactoferrin (Stool WBC) SEE RESULT BELOW 13 Stool Occult Blood SEE RESULT BELOW 14 Laboratory test finding 12/18/2015 [facility] [place] Erythrocyte Sed Rate 8 mm/Hr N 0- 40 15 Rheumatoid Factor <15 IU/mL N <15 16 Cyclic Citrullinated Pep Igg <15.6 U N 17 CBC Auto Diff 12/18/2015 [facility] [place] White Blood Count 6.4 10^3/uL N 3.5-10.8 Red Blood Count 4.50 10^6/uL N 4.0-5.4 Hemoglobin 13.9 g/dL Low 14.0-18.0 Hematocrit 41 % Low 42-52 Mean Corpuscular Volume 91 fL N 80-94 Mean Corpuscular Hemoglobin 31 pg N 27-31 Mean Corpuscular HGB Conc 34 g/dL N 31-36 Red Cell Distribution Width 14 % N 10.5-15 Platelet Count 167 10^3/uL N 150-450 Mean Platelet Volume 9 um3 N 7.4-10.4 Abs Neutrophils 3.5 10^3/uL N 1.5-7.7 Abs Lymphocytes 2.2 10^3/uL N 1.0-4.8 Abs Monocytes 0.5 10^3/uL N 0-0.8 Abs Eosinophils 0.1 10^3/uL N 0-0.6 Abs Basophils 0.1 10^3/uL N 0-0.2 Abs Nucleated RBC 0.01 10^3/uL N Granulocyte % 54.3 % N 38-83 Lymphocyte % 35.0 % N 25-47 Monocyte % 8.4 % N 1-9 Eosinophil % 1.5 % N 0-6 Basophil % 0.8 % N 0-2 Nucleated Red Blood Cells % 0.1 N Laboratory test finding 12/18/2015 [facility] [place] C Reactive Protein < 1.00 mg/L N < 5.00 18 Comp Metabolic Panel 12/18/2015 [facility] [place] Sodium 138 mmol/L N 133-145 Potassium 3.9 mmol/L N 3.5-5.0 Chloride 106 mmol/L N 101-111 Co2 Carbon Dioxide 25 mmol/L N 22-32 Anion Gap 7 mmol/L N 2-11 Glucose 101 mg/dL High 70-100 Blood Urea Nitrogen 28 mg/dL High 6-24 Creatinine 1.10 mg/dL N 0.67-1.17 BUN/Creatinine Ratio 25.5 High 8-20 Calcium 9.5 mg/dL N 8.6-10.3 Total Protein 6.5 g/dL N 6.4-8.9 Albumin 4.3 g/dL N 3.2-5.2 Globulin 2.2 g/dL N 2-4 Albumin/Globulin Ratio 2.0 N 1-3 Total Bilirubin 0.60 mg/dL N 0.2-1.0 Alkaline Phosphatase 40 U/L N 34-104 Alt 13 U/L N 7-52 Ast 17 U/L N 13-39 Egfr Non- 63.6 N >60 Egfr 81.8 N >60 19 Comp Metabolic Panel 10/18/2015 [facility] [place] Sodium 137 mmol/L N 133-145 Potassium 4.1 mmol/L N 3.5-5.0 Chloride 103 mmol/L N 101-111 Co2 Carbon Dioxide 27 mmol/L N 22-32 Anion Gap 7 mmol/L N 2-11 Glucose 95 mg/dL N 70-100 Blood Urea Nitrogen 25 mg/dL High 6-24 Creatinine 1.14 mg/dL N 0.67-1.17 BUN/Creatinine Ratio 21.9 High 8-20 Calcium 8.9 mg/dL N 8.6-10.3 Total Protein 6.1 g/dL Low 6.4-8.9 Albumin 4.0 g/dL N 3.2-5.2 Globulin 2.1 g/dL N 2-4 Albumin/Globulin Ratio 1.9 N 1-3 Total Bilirubin 0.40 mg/dL N 0.2-1.0 Alkaline Phosphatase 36 U/L N 34-104 Alt 12 U/L N 7-52 Ast 17 U/L N 13-39 Egfr Non- 61.1 N >60 Egfr 78.5 N >60 20 Laboratory test finding 10/18/2015 [facility] [place] C Reactive Protein 1.90 mg/L N < 5.00 21 CBC Auto Diff 10/18/2015 [facility] [place] White Blood Count 5.5 10^3/uL N 3.5-10.8 Red Blood Count 4.20 10^6/uL N 4.0-5.4 Hemoglobin 12.8 g/dL Low 14.0-18.0 Hematocrit 38 % Low 42-52 Mean Corpuscular Volume 91 fL N 80-94 Mean Corpuscular Hemoglobin 31 pg N 27-31 Mean Corpuscular HGB Conc 34 g/dL N 31-36 Red Cell Distribution Width 13 % N 10.5-15 Platelet Count 183 10^3/uL N 150-450 Mean Platelet Volume 9 um3 N 7.4-10.4 Abs Neutrophils 3.1 10^3/uL N 1.5-7.7 Abs Lymphocytes 1.9 10^3/uL N 1.0-4.8 Abs Monocytes 0.5 10^3/uL N 0-0.8 Abs Eosinophils 0.1 10^3/uL N 0-0.6 Abs Basophils 0 10^3/uL N 0-0.2 Abs Nucleated RBC 0 10^3/uL N Granulocyte % 55.9 % N 38-83 Lymphocyte % 33.9 % N 25-47 Monocyte % 8.6 % N 1-9 Eosinophil % 1.1 % N 0-6 Basophil % 0.5 % N 0-2 Nucleated Red Blood Cells % 0.1 N Laboratory test finding 10/18/2015 [facility] [place] Erythrocyte Sed Rate 14 mm/Hr N 0- 40 22 Cyclic Citrullinated Pep Igg <15.6 U N 23 Rheumatoid Factor <15 IU/mL N <15 24 Comp Metabolic Panel 09/19/2015 [facility] [place] Sodium 135 mmol/L N 133-145 Potassium 3.6 mmol/L N 3.5-5.0 Chloride 104 mmol/L N 101-111 Co2 Carbon Dioxide 24 mmol/L N 22-32 Anion Gap 7 mmol/L N 2-11 Glucose 110 mg/dL High 70-100 Blood Urea Nitrogen 29 mg/dL High 6-24 Creatinine 1.15 mg/dL N 0.67-1.17 BUN/Creatinine Ratio 25.2 High 8-20 Calcium 9.1 mg/dL N 8.6-10.3 Total Protein 6.4 g/dL N 6.4-8.9 Albumin 4.1 g/dL N 3.2-5.2 Globulin 2.3 g/dL N 2-4 Albumin/Globulin Ratio 1.8 N 1-3 Total Bilirubin 0.50 mg/dL N 0.2-1.0 Alkaline Phosphatase 37 U/L N 34-104 Alt 13 U/L N 7-52 Ast 17 U/L N 13-39 Egfr Non- 60.4 N >60 Egfr 77.7 N >60 25 Laboratory test 09/19/2015 [facility] [place] C Reactive Protein 7.34 mg/L High < 5.00 26 finding CBC Auto Diff 09/19/2015 [facility] [place] White Blood Count 8.1 10^3/uL N 3.5-10.8 Red Blood Count 4.21 10^6/uL N 4.0-5.4 Hemoglobin 12.9 g/dL Low 14.0-18.0 Hematocrit 38 % Low 42-52 Mean Corpuscular Volume 91 fL N 80-94 Mean Corpuscular Hemoglobin 31 pg N 27-31 Mean Corpuscular HGB Conc 34 g/dL N 31-36 Red Cell Distribution Width 14 % N 10.5-15 Platelet Count 186 10^3/uL N 150-450 Mean Platelet Volume 9 um3 N 7.4-10.4 Abs Neutrophils 5.5 10^3/uL N 1.5-7.7 Abs Lymphocytes 1.9 10^3/uL N 1.0-4.8 Abs Monocytes 0.6 10^3/uL N 0-0.8 Abs Eosinophils 0 10^3/uL N 0-0.6 Abs Basophils 0.1 10^3/uL N 0-0.2 Abs Nucleated RBC 0 10^3/uL N Granulocyte % 67.5 % N 38-83 Lymphocyte % 23.4 % Low 25-47 Monocyte % 7.8 % N 1-9 Eosinophil % 0.6 % N 0-6 Basophil % 0.7 % N 0-2 Nucleated Red Blood Cells % 0 N Laboratory test finding 09/19/2015 [facility] [place] Erythrocyte Sed Rate 21 mm/Hr N 0- 40 27 Rheumatoid Factor <15 IU/mL N <15 28 Cyclic Citrullinated Pep Igg <15.6 U N 29 Ua - Micro (Fma) 08/16/2015 [facility] Appearance CLEAR (607)- - Color YELLOW Glucose, Urine (Fma/CMC/CTX) NEG Bilirubin NEG Ketones NEG SP Grav 1.015 Blood TRACE-INTACT # PH 6.5 Protein NEG Urobil 0.2 Nitrite NEG Leukocytes (Fma/[facility]) MODERATE # Hyaline - /Lpf Granular - /Lpf WBC (Fma,[facility]) 50-60 # RBC 5-6 # Mucus - /Lpf Epith RARE /Lpf # Bacteria 4+ /Hpf # Amorphous - /Lpf Crystals, Fluid (Fma/CMC/CTX) - Z#Comments - Laboratory test 08/15/2015 [facility] [place] Urine Culture And SEE RESULT BELOW 30, 31 finding Sensitivities Urinalysis Profile 08/15/2015 [facility] [place] Urine Color Yellow N Urine Appearance Cloudy N Urine Specific [place] 1.015 N 1.010-1.030 Urine pH 6.0 N 5-9 Urine Urobilinogen Negative N Negative Urine Ketones Negative N Negative Urine Protein 1+(30 mg/dL) Abnormal Negative Urine Leukocytes 2+ Abnormal Negative Urine Blood Negative N Negative * * Abnormal Negative 32 Urine Nitrite Negative N Negative Urine Bilirubin Negative N Negative Urine Glucose Negative N Negative Urine White Blood Cell 3+(>20/hpf) Abnormal Absent Urine Red Blood Cell Trace(0-2/hpf) N Absent Urine Bacteria Absent N Absent Urine Squamous Epithelial Cell Present Abnormal Absent Urine Amorphous Crystals Present Abnormal Absent Laboratory test finding 08/15/2015 [facility] [place] Erythrocyte Sed Rate 21 mm/Hr N 0- 40 33, 34 Rheumatoid Factor <15 IU/mL N <15 35 Cyclic Citrullinated Pep Igg <15.6 U N 36 CBC Auto Diff 08/15/2015 [facility] [place] White Blood Count 7.7 10^3/uL N 3.5-10.8 Red Blood Count 4.13 10^6/uL N 4.0-5.4 Hemoglobin 12.6 g/dL Low 14.0-18.0 Hematocrit 37 % Low 42-52 Mean Corpuscular Volume 91 fL N 80-94 Mean Corpuscular Hemoglobin 30 pg N 27-31 Mean Corpuscular HGB Conc 34 g/dL N 31-36 Red Cell Distribution Width 15 % N 10.5-15 Platelet Count 190 10^3/uL N 150-450 Mean Platelet Volume 9 um3 N 7.4-10.4 Abs Neutrophils 5.3 10^3/uL N 1.5-7.7 Abs Lymphocytes 1.7 10^3/uL N 1.0-4.8 Abs Monocytes 0.6 10^3/uL N 0-0.8 Abs Eosinophils 0.1 10^3/uL N 0-0.6 Abs Basophils 0 10^3/uL N 0-0.2 Abs Nucleated RBC 0 10^3/uL N Granulocyte % 68.3 % N 38-83 Lymphocyte % 21.4 % Low 25-47 Monocyte % 8.3 % N 1-9 Eosinophil % 1.5 % N 0-6 Basophil % 0.5 % N 0-2 Nucleated Red Blood Cells % 0 N Laboratory test finding 08/15/2015 [facility] [place] C Reactive Protein 17.96 mg/L High < 5.00 37 Comp Metabolic Panel 08/15/2015 [facility] [place] Sodium 136 mmol/L N 133-145 Potassium 3.2 mmol/L Low 3.5-5.0 Chloride 104 mmol/L N 101-111 Co2 Carbon Dioxide 24 mmol/L N 22-32 Anion Gap 8 mmol/L N 2-11 Glucose 123 mg/dL High 70-100 Blood Urea Nitrogen 20 mg/dL N 6-24 Creatinine 0.97 mg/dL N 0.67-1.17 BUN/Creatinine Ratio 20.6 High 8-20 Calcium 8.9 mg/dL N 8.6-10.3 Total Protein 6.4 g/dL N 6.4-8.9 Albumin 4.2 g/dL N 3.2-5.2 Globulin 2.2 g/dL N 2-4 Albumin/Globulin Ratio 1.9 N 1-3 Total Bilirubin 0.50 mg/dL N 0.2-1.0 Alkaline Phosphatase 40 U/L N 34-104 Alt 15 U/L N 7-52 Ast 20 U/L N 13-39 Egfr Non- 73.6 N >60 Egfr 94.6 N >60 38 Lyme, Western Blot, 05/23/2015 [facility] IgG P93 Ab. Absent 39 Serum [address] [place] [address] (607)- - IgG P66 Ab. Absent IgG P58 Ab. Absent IgG P45 Ab. Absent IgG P41 Ab. Absent IgG P39 Ab. Absent IgG P30 Ab. Absent IgG P28 Ab. Absent IgG P23 Ab. Absent IgG P18 Ab. Absent Lyme IgG WB Interp. Negative 40 IgM P41 Ab. Absent IgM P39 Ab. Absent IgM P23 Ab. Absent Lyme IgM WB Interp. Negative 41 CBC Electronic (a) 04/29/2015 [facility] WBC 7.8 3.6-9.6 (607)- - RBC 4.55 3.90-5.70 Hemoglobin (Fma/CMC/CTX) 13.9 g/dL 12.1 - 17.2 Hematocrit (Fma/CMC/CTX) 41.1 % 36.1 - 50.3 Platelets 351 10^3/ul 150-400 Lymph% 22.9 % 17.0-48.0 Mixed% 4.5 Neutrophils % 72.6 Mean Corpuscular Vol 90 82.2-97.4 Mean Corpuscular Hemoglobin 30.5 27.6-33.3 Mean Corpuscular Hemo Concen 33.7 32.0-36.0 RDW 13.4 11.6-13.7 Mean Platelet Volume 9.0 5.5-11.0 Laboratory test 04/29/2015 [facility] Sed Rate 8 finding (607)- - (Fma/CMC/Centrex) Laboratory test 04/29/2015 [facility](fma) Uric Acid 6.4 mg/dL 2.5- 9. 42 finding 2 Rheumatoid 04/29/2015 [facility] Ra Latex Turbid. 8.7 IU/mL 0.0-13 43 Arthritis Factor [address] [place] [address] .9 ([facility]) [place] [address] (607)- - Lyme AB/Western 04/29/2015 [facility] Lyme IgG/IgM Ab <0.91 ISR 0.00-0 44 Blot Reflex [address] [place] [address] .90 [place] [address] (607)- - Lyme Disease Ab, Quant, IgM <0.80 index 0.00-0.79 45 Laboratory test 04/29/2015 [facility] C-Reactive 8.2 mg/L High 0.0-4.[address] [place] [address] Protein, [place] [address] (607)- - Hla B 27 Disease Association Negative 46 Spep Serum Protein 04/29/2015 [facility] Protein, 6.5 g/dL 6.0-8.[address] [place] [address] Total, [place] [address] (602)- - Albumin 4.2 g/dL 3.2-5.6 Cpnrq-7-Vpuectwn 0.2 g/dL 0.1-0.4 Kmnxg-4-Tqqocwag 0.6 g/dL 0.4-1.2 Beta Globulin 0.8 g/dL 0.6-1.3 Gamma Globulin 0.7 g/dL 0.5-1.6 M-Bryan Not Observed g/dL Not Observed Globulin, Total 2.3 g/dL 2.0-4.5 A/G Ratio 1.8 0.7-2.0 Please note: See Comment: 47 Laboratory test 04/29/2015 [facility] Antinuclear Negative [address] [place] [address] Antibodies, [place] [address] (601)- - CCP Abs Igg/Iga 04/29/2015 [facility] CCP Antibodies 19 units 0-[address] [place] [address] IgG/[place] [address] (603)- - Laboratory test 04/29/2015 [facility] PDF SEE IMAGE finding [address] [place] [address] [id number] [place] [address] (601)- - Babesia Microti 04/03/2015 [facility] Babesia microti <1:10 Neg:<1 50 AB Panel [address] [place] [address] IgM :10 [place] [address] (605)- - Babesia microti IgG <1:10 Neg:<1:10 51 Ehrlichiosis Panel 04/03/2015 [facility] E. chaffeensis Negative Neg:<1:[address] [place] [address] ([facility]) [place] [address] (602)- - E. chaffeensis ([facility]) IgM Titer Negative Neg:<1:20 52 Hge IgG Titer Negative Neg:<1:64 53 Hge IgM Titer Negative Neg:<1:20 54 Lyme AB/Western 04/03/2015 [facility] Lyme IgG/IgM <0.91 ISR 0.00-0.90 55 Blot Reflex [address] [place] [address] [place] [address] (608)- - Lyme Disease Ab, Quant, IgM <0.80 index 0.00-0.79 56 CBC Electronic (Fma) 01/22/2015 [facility] WBC 5.9 3.6-9.6 (607)- - RBC 4.55 3.90-5.70 Hemoglobin (Fma/CMC/CTX) 14.1 g/dL 12.1 - 17.2 Hematocrit (Fma/CMC/CTX) 40.3 % 36.1 - 50.3 Platelets 201 10^3/ul 150-400 Lymph% 36.1 % 17.0-48.0 Mixed% 6.1 Neutrophils % 57.8 Mean Corpuscular Vol 89 82.2-97.4 Mean Corpuscular Hemoglobin 31.1 27.6-33.3 Mean Corpuscular Hemo Concen 35.1 32.0-36.0 RDW 14.4 High 11.6-13.7 Mean Platelet Volume 6.8 5.5-11.0 Comprehensive Metabolic 09/26/2014 [facility](a) Sodium 137 mEq/L 134-149 Prof Potassium 3.7 mEq/L 3.6-5.5 Chloride 102 mEq/L 94-112 Carbon Dioxide 29 mEq/L 21-32 Glucose 132 mg/dL High 70-105 BUN 25 mg/dL 6-26 Creatinine 1.0 mg/dL 0.6-1.4 BUN/Creat Ratio 25.0 CALC 8.0-36.0 Calcium 9.3 mg/dL 8.6-10.2 Total Protein 6.9 g/dL 6.4-8.3 Albumin 4.1 g/dL 3.8-5.5 Globulin 2.8 g/dL 2.0-4.8 A/G Ratio 1.5 CALC 0.6-2.3 Alk. Phosphatase 46 U/L 22-95 Alt (SGPT) 24 U/L 7-35 Ast (Sgot) 33 U/L 5-34 Total Bilirubin 0.4 mg/dL 0.2-1.3 Laboratory test 09/26/2014 [facility] Sed Rate 20 mm finding (607)- - (Fma/CMC/Centrex) CBC Electronic 09/26/2014 [facility] WBC 6.6 3.6-9.6 (a) (607)- - RBC 3.86 Low 3.90-5.70 Hemoglobin (Fma/CMC/CTX) 12.2 g/dL 12.1 - 17.2 Hematocrit (Fma/CMC/CTX) 34.6 % Low 36.1 - 50.3 Platelets 245 10^3/ul 150-400 Lymph% 26.9 % 17.0-48.0 Mixed% 4.1 Neutrophils % 69.0 Mean Corpuscular Vol 90 82.2-97.4 Mean Corpuscular Hemoglobin 31.7 27.6-33.3 Mean Corpuscular Hemo Concen 35.3 32.0-36.0 RDW 14.0 High 11.6-13.7 Mean Platelet Volume 7.0 5.5-11.0 Ehrlichia AB 09/26/2014 [facility] E. chaffeensis Negative Neg:<1:64 Panel (CTX) [address] [place] [address] (HME) [place] [address] [phone] E. chaffeensis ([facility]) IgM Titer Negative Neg:<1:20 57 Hge IgG Titer Negative Neg:<1:64 58 Hge IgM Titer Negative Neg:<1:20 59 Babesia Microti 09/26/2014 [facility] Babesia microti <1:10 Neg:<1:10 AB PNL [address] [place] [address] [phone] Babesia microti IgG <1:10 Neg:<1:10 60 Lyme Igg/M 09/26/2014 [facility] Lyme IgG/IgM <0.91 ISR 0.00-0.90 61 W/RFX [place] [address] [place] [address] [place] [address] [phone] Lyme Disease Ab, Quant, IgM <0.80 index 0.00-0.79 62 Laboratory test 09/26/2014 [facility] Antinuclear Abs, Negative [address] [place] [address] [place] [address] [phone] Laboratory test 01/14/2011 [facility] Tick Identification SEE SCANNED finding [address] [place] [phone] Laboratory test 08/20/2010 [facility] PSA,Diagnostic 3.85 NG/ML 0-4 64 finding Lipid Profile 04/03/2010 [facility](fma) Cholesterol 169 mg/dL 120- 200 HDL 49 mg/dL 30-70 Triglycerides 103 mg/dL 30-200 HDL Risk Factor 3.4 CALC Low 4.2-7.0 LDL (Calculated) 100 CALC 0-129 VLDL (Calculated) 21 mg/dL 0-50 Laboratory test 04/03/2010 [facility](fma) Free T4 0.76 ng/dL 0.75- 1.54 finding TSH 1.56 mIU/L 0.50-6.00 Comprehensive Metabolic 04/03/2010 [facility](fma) Albumin 4.6 g/dL 3.8-5.5 Prof Alk. Phos. 44 U/L 22-95 Alt (SGPT) 21 U/L 10-40 Ast (Sgot) 25 U/L 5-34 BUN 29 mg/dL High 6-26 65 Calcium 10.0 mg/dL 8.6-10.2 Chloride 105 mEq/L 94-112 Creatinine 1.3 mg/dL 0.6-1.4 Carbon Dioxide 26 mEq/L 21-32 Glucose 107 mg/dL High 70-105 66 Sodium 143 mEq/L 134-149 Total Bilirubin 0.5 mg/dL 0.2-1.3 Total Protein 7.3 g/dL 6.3-8.1 Potassium 4.3 mEq/L 3.6-5.5 Globulin 2.6 g/dL 2.0-4.8 A/G Ratio 1.8 Calc 0.6-2.2 BUN/Creat Ratio 21.9 Calc 8.0-36.0 CBC ([facility]) 04/03/2010 [facility] WBC 7.0 3.6-9.6 (607)- - RBC 4.98 3.90-5.70 Hemoglobin (Fma/CMC/CTX) 14.7 g/dL 12.1 - 17.2 Hematocrit (Fma/CMC/CTX) 45.3 % 36.1 - 50.3 Mean Corpuscular Vol 91.0 82.2-97.4 Mean Corpuscular Hemaglobin 29.5 27.6-33.3 Mean Corpuscular Hemo Concen 32.5 Low 33.0-36.0 Platelets 200 10^3/ul 150-400 Lymph% 35.6 20.5-51.1 Mixed% 6.3 Neutrophils % 58.1 RDW 13.3 11.6-13.7 Mean Platelet Volume 11.5 High 7.4-10.4 Ua - Micro ([facility]) 04/25/2008 [facility] Appearance CLEAR (607)- - Color YELLOW Glucose NEG Bilirubin NEG Ketones NEG SP Grav 1.015 Blood NEG PH 6.0 Protein SSA TRACE # Urobil 0.2 Nitrite NEG Leukocytes ([facility]) NEG Hyaline - /Lpf Granular - /Lpf WBC ([facility]) 0-1 RBC - Mucus - /Lpf Epith FEW /Lpf Bacteria - /Hpf Amorphous - /Lpf Crystals, Fluid ([facility]/CTX) - Z#Comments - Complete Blood Count 04/18/2008 Camacho Juli([facility]) WBC 5.9 x10^3/u 3.6- 9.6 67 Gran# 3.3 x10^3/u 1.5-7.2 Gran% 56.3 % 42.2-75.2 HCT 42 % 36-50 HGB 14.6 g/dL 12.1-17.2 Lymph# 2.3 x10^3/u 0.7-4.9 Lymph% 38.6 % 20.5-51.1 MCH 30.3 pg 27.6-33.3 MCV 86.4 fL 82.2-97.4 MCHC 35.1 g/dL 33.0-35.5 Mo# 0.3 x10^3/u 0.1-0.9 Mo% 5.1 % 1.7-9.3 MPV 8.7 fL 7.4-10.4 PLT 200 x10^3/u 150-400 RBC 4.83 x10^6/u 3.90-5.70 RDW 13.1 % 11.6-13.7 Comprehensive Metabolic 04/18/2008 Camacho Bustos([facility]) Albumin 4.5 g/dL 3.8-5.5 Prof Alk. Phos. 59 U/L 22-95 Alt (SGPT) 22 U/L 10-40 Ast (Sgot) 25 U/L 5-34 BUN 25 mg/dL 6-26 Calcium 9.5 mg/dL 8.6-10.2 Chloride 99 mEq/L 94-112 Creatinine 1.4 mg/dL 0.6-1.4 Carbon Dioxide 24 mEq/L 21-32 Glucose 106 mg/dL High 70-105 Sodium 137 mEq/L 134-149 Total Bilirubin 0.6 mg/dL 0.2-1.3 Total Protein 6.7 g/dL 6.3-8.1 Potassium 3.7 mEq/L 3.6-5.5 Globulin 2.3 g/dL 2.0-4.8 A/G Ratio 2.0 Calc 0.6-2.2 BUN/Creat Ratio 17.7 Calc 8.0-36.0 Lipid Profile 04/18/2008 Camacho Bustos([facility]) Cholesterol 148 mg/dL 120- 200 HDL 42 mg/dL 30-70 Triglycerides 83 mg/dL 30-200 HDL Risk Factor 3.5 CALC Low 4.2-7.0 LDL (Calculated) 89 CALC 0-129 VLDL (Calculated) 17 mg/dL 0-50 Laboratory test 04/18/2008 Sauer Juli([facility]) PSA 3.00 ng/mL 0.00-4.00 finding CBC With 04/09/2007 [facility] [place] White Blood 8.6 CUMM 4.8-10.8 Electronic Diff Count Stat Abs Basophils 0 0-0.2 Abs Eosinophils 0.1 0-0.6 Absolute Neutrophil Count 6.3 1.5-7.7 Abs Lymphs 1.7 1.0-4.8 Abs Mononuclear 0.5 0-0.8 Basophil % 0 % 0-2 Hematocrit 39 % Low 42-52 Hemoglobin 13.9 g/dL Low 14.0-18.0 Eosinophil % 1.0 % 0-6 Gran % 73.4 % 38-83 Lymph % 19.7 % Low 20-45 Mean Corpuscular HGB Cone 35 g/dL 32-36 Mean Corpuscular Hemoglob 32 pg High 27-31 Mean Corpuscular Volume 89 um3 80-94 Mean Platelet Volume 8.1 um3 7.4-10.4 Mononuclear % 5.9 % 1-9 Platelet Count 193 CUMM 150-450 Red Cell Count 4.40 CUMM Low 4.6-6.2 Redcell Distribution WDTH 13 % 10.5-15 Comp Stat 04/09/2007 [facility] [place] One Over Creatinine 0.90 Anion Gap 8.0 mmol/L 2-11 68 Albumin/Globulin Ratio 1.6 1-3 Albumin 3.8 GM/DL 3.2-5.2 Alkaline Phosphatase 47 U/L 39-117 Alt (SGPT) 80 U/L High 17-63 Ast (Sgot) 134 U/L High 12-42 BUN 18 mg/dL 6-24 Calcium 8.6 mg/dL Low 8.7-10.2 Chloride 106 mmol/L 101-111 Co2 (Carbon Dioxide) 25.0 mmol/L 22-32 Globulin 2.4 GM/DL 2-4 Glucose 157 mg/dL High 70-105 Potassium 3.0 mmol/L Low 3.5-5.0 Sodium 139 mmol/L 135-145 Bilirubin Total 1.0 mg/dL 0.4-1.5 Total Protein 6.2 GM/DL 6.2-8.1 BUN/Creatinine Ratio 16.4 8-20 Creatinine 1.1 mg/dL 0.5-1.4 Laboratory test 04/09/2007 [facility] [place] Troponin-I (TnI) 0.02 NG/ML 0-0.06 69 finding Laboratory test 08/10/2006 [facility] [place] PSA Screening 1.94 NG/ML 0.01-4.0 70 finding Laboratory test 02/23/2006 [facility] PSA 2.34 0.0-4.0 finding (607)- - ([facility] [place]) Laboratory test 11/06/2004 [facility] PSA 1.26 0.0-4.0 finding (607)- - Lipid 11/06/2004 [facility] Cholesterol 167 mg/dL 120-200 Profile([facility]) Male (607)- - Triglyceride 112 mg/dL 30-200 HDL Cholesterol ([facility]) Male 42 mg/dL 30-70 LDL, Calculated ([facility] [place]) 103 CALC 0-129 LDL, Direct - mg/dL 0-130 VLDL 22 0-50 HDL Risk Factor ([facility]) 4.0 CALC Low 4.2-7.0 Liver Function ([facility]) 11/06/2004 [facility] Total Protein 6.6 g/dL 6.3-8.1 (607)- - Albumin ([facility]) 4.4 3.8-5.5 A/G Ratio ([facility]) 2.0 0.6-2.2 Globulin 2.2 2.0-4.8 Alkaline Phosphatase (F/C/CTX) 28 U/L Low 30-110 Alt (SGPT) ([facility]) 25 10-40 Ast (Sgot) ([facility]) 25 U/mL 5-34 Bilirubin, Total 0.5 mg/dL 0.2-1.3 Bilirubin, Direct 0.2 mg/dL 0-0.6 Bilirubin, Indirect 0.31 ml/dl 0.10-1.0 CBC Electronic ([facility]) 09/11/2002 [facility] WBC 5.8 3.6-9.6 (607)- - Lymphocytes 36.1 % 20.5 - 51.1 Monocytes 7.8 % 1.7-9.3 Granulocytes 56.1 % 42.2 - 75.2 Lymphocytes 2.4 10^3/uL 0.7 - 4.9 Monocytes 0.5 10^3/uL 0.1 - 0.9 Granulocytes 3.3 10^3/uL 1.5 - 7.2 RBC 4.92 3.90-5.70 Hemoglobin (Fma/CMC/CTX) 14.8 g/dL 12.1 - 17.2 Hematocrit (Fma/CMC/CTX) 43.7 % 36.1 - 50.3 Mean Corpuscular Vol 88.9 82.2-97.4 Mean Corpuscular Hemaglobin 30.2 27.6-33.3 Mean Corpuscular Hemo Concen 33.9 33.0-34.8 RDW 13.1 11.6-13.7 Platelets 181 10^3/ul 150-400 Mean Platelet Volume 9.0 7.4-10.4 Laboratory test 09/11/2002 [facility] Troponin I <0.3 ng/ml 0 - 2 71 finding 28 [place] [address] [phone] Aldolase, Serum 6.9 1.2-7.6 CKMB Relative Index 4.3 % 0.0-5.0 CK, Total 231 U/L High 55.0 - 170.0 CK-MB (Total) 10.0 NG/ML High 0.0-7.0 Laboratory test finding 09/11/2002 [facility] Amylase 47 U/L 25 - 115 (607)- - Creatine Kinase, Total 231 U/L High 38-174 Troponin-I/TnI <0.01 0.0-2.30 Comp Metabolic 09/11/2002 [facility] Glucose, Serum 120 mg/dL High 70-118 (Fma) (607)- - (Fma/CMC/CTX) BUN ([facility]) 21 mg/dL 7-26 Creatinine (Fma/CMC/CTX) 0.8 mg/dL 0.6-1.4 BUN/Creatinin Ratio 25.7 8.0-36 Sodium 143 134-149 Potassium 3.6 3.6-5.5 Chloride 101 mEq/L 94-112 Co2 26 21-32 Calcium ([facility]) 9.2 mg/dL 8.6-10.0 Total Protein 7.0 g/dL 6.3-8.1 Albumin ([facility]) 4.6 3.8-5.5 Globulin 2.4 2.0-4.8 A/G Ratio ([facility]) 1.9 0.6-2.2 Alkaline Phosphatase 48 U/L 30-110 Alt (SGPT) 28 10-40 Ast (Sgot) ([facility]) 29 U/mL 5-34 Bilirubin, Total 0.7 mg/dL 0.2-1.3 Laboratory test finding 09/11/2002 [facility] Aldolase 6.9 1.2-7.6 [address] [place] [address] (607)- - CBC With Diff ([facility]) 12/29/2001 [facility] WBC 6.8 3.6-9.6 (607)- - Lymphocytes 42.8 % 20.5 - 51.1 Monocytes 6.8 % 1.7-9.3 Granulocytes 50.4 % 42.2 - 75.2 Lymphocytes 2.9 10^3/uL 0.7 - 4.9 Monocytes 0.5 10^3/uL 0.1 - 0.9 Granulocytes 3.4 10^3/uL 1.5 - 7.2 RBC 4.78 3.90-5.70 Hemoglobin 15.0 g/dL 12.1 - 17.2 Hematocrit 42.0 % 36.1 - 50.3 Mean Corpuscular Vol 87.8 82.2-97.4 Mean Corpuscular Hemaglobin 31.3 27.6-33.3 Mean Corpuscular Hemo Concen 35.6 High 33.0-34.8 RDW 12.4 11.6-13.7 Platelets 215. 10^3/ul 150-400 Mean Platelet Volume 7.9 7.4-10.4 Comp Metabolic ([facility]) 12/29/2001 [facility] Albumin 4.5 3.8-5.5 (607)- - Alkaline Phosphatase 44 U/L 22-95 Bilirubin, Total 0.5 mg/dL 0.2-1.3 BUN 22 7-26 Calcium 9.2 mg/dL 8.6-10.0 Creatinine 1.2 mg/dL 0.6-1.4 Glucose 116 mg/dL 70 - 118 Ast Sgot 28 U/L 5-40 Alt (SGPT) 28 10-40 Total Protein 6.7 g/dL 6.4-8.3 Sodium 143 134-149 Potassium 4.3 3.6-5.5 Chloride 103 mEq/L 94-112 Co2 29 21-32 Globulin 2.2 2.0-4.8 Albumin / Globulin Ratio 2.0 0.6-2.2 BUN/Creatinin Ratio 18.3 8.0-36 Lipid Profile (a) 12/29/2001 [facility] Cholesterol 150 mg/dL 140 -200 (607)- - Triglyceride 127 mg/dL 30-150 VLDL 25 0-50 LDL-Calculated 83 0-160 HDL-Chol 42 30-70 Laboratory test 12/29/2001 [facility] PSA 1.18 0.0-4.0 finding (607)- - Ua - Micro ([facility]) 02/25/2000 [facility] Appearance CLEAR YELLOW (607)- - Glucose - Bilirubin - Ketones TRACE SP Grav 1.020 Blood - PH 5.0 Protein - Urobil 0.2 Nitrite - Leukocytes - Hyaline - /Lpf Granular - /Lpf WBC'S 2-4 RBC'S 2-4 Mucus SMALL AMOUNT /Lpf Epith - Bacteria TRACE Amorphous SLIGHT /Lpf Crystals - /Lpf Laboratory test finding 02/23/2000 [facility] PSA 1.1 NG/ML 0.0-4.0 [address] [place] [address] [phone] CBC With Diff ([facility]) 02/23/2000 [facility] WBC 5.7 /Hpf 3.6 - 9.6 (607)- - Lymphocytes 42.6 % 20.5 - 51.1 Monocytes 7.4 % 1.7 - 9.3 Granulocytes 50.0 % 42.2 - 75.2 Lymphocytes 2.4 10^3/uL 0.7 - 4.9 Monocytes 0.4 10^3/uL 0.1 - 0.9 Granulocytes 2.8 10^3/uL 1.5 - 7.2 RBC 4.64 /Hpf 3.90 - 5.70 Hemoglobin 14.6 g/dL 12.1 - 17.2 Hematocrit 42.1 % 36.1 - 50.3 Mean Corpuscular Vol 90.7 fl 82.2 - 97.4 Mean Corpuscular Hemaglobin 31.5 pg 27.6 - 33.3 Mean Corpuscular Hemo Concen 34.8 g/dL 33.0 - 34.8 RDW 13.1 % 11.6 - 13.7 Platelets 185 10^3/ul 150-400 Mean Platelet Volume 8.7 fl 7.4 - 10.4 Comp Metabolic ([facility]) 10/30/1999 [facility] Albumin 4.5 GM/DL 3.80 - 5.50 (607)- - Alkaline Phosphatase 42 U/L 39-130 Bilirubin, Total 0.6 mg/dL 0.2-1.3 BUN 29 mg/dL High 10-26 Calcium 8.2 mg/dL 7.4-9.2 Creatinine 1.1 mg/dL 0.6-1.4 Glucose 111 mg/dL 70 - 118 Ast Sgot 32 U/L 9-44 Alt (SGPT) 36 U/L High 0-28 Total Protein 6.8 g/dL 6.3-8.1 Sodium 142 mEq/L 134-149 Potassium 4.3 mEq/L 3.6-5.5 Chloride 106 mEq/L 94-112 Co2 28 21-32 Globulin 2.3 2.0-4.8 Albumin / Globulin Ratio 2.0 0.6-2.2 BUN/Creatinin Ratio 26.4 8.0-36 1 RESULTS VERIFIED BY REPEAT ANALYSIS 2 Because ethnic data is not always readily available, this report includes an eGFR for both -Americans and non- Americans. The National Kidney Disease Education Program (NKDEP) does not endorse the use of the MDRD equation for patients that are not between the ages of 18 and 70, are , have extremes of body size, muscle mass, or nutritional status, or are non- or non-. According to the National Kidney Foundation, irrespective of diagnosis, the stage of the disease is based on the level of kidney function: Stage Description GFR(mL/min/1.73 m(2)) 1 Kidney damage with normal or decreased GFR 90 2 Kidney damage with mild decrease in GFR 60-89 3 Moderate decrease in GFR 30-59 4 Severe decrease in GFR 15-29 5 Kidney failure <15 (or dialysis) 3 Because ethnic data is not always readily available, this report includes an eGFR for both -Americans and non- Americans. The National Kidney Disease Education Program (NKDEP) does not endorse the use of the MDRD equation for patients that are not between the ages of 18 and 70, are , have extremes of body size, muscle mass, or nutritional status, or are non- or non-. According to the National Kidney Foundation, irrespective of diagnosis, the stage of the disease is based on the level of kidney function: Stage Description GFR(mL/min/1.73 m(2)) 1 Kidney damage with normal or decreased GFR 90 2 Kidney damage with mild decrease in GFR 60-89 3 Moderate decrease in GFR 30-59 4 Severe decrease in GFR 15-29 5 Kidney failure <15 (or dialysis) 4 consistent w/ previous results 5 consistent w/ previous results 6 Because ethnic data is not always readily available, this report includes an eGFR for both -Americans and non- Americans. The National Kidney Disease Education Program (NKDEP) does not endorse the use of the MDRD equation for patients that are not between the ages of 18 and 70, are , have extremes of body size, muscle mass, or nutritional status, or are non- or non-. According to the National Kidney Foundation, irrespective of diagnosis, the stage of the disease is based on the level of kidney function: Stage Description GFR(mL/min/1.73 m(2)) 1 Kidney damage with normal or decreased GFR 90 2 Kidney damage with mild decrease in GFR 60-89 3 Moderate decrease in GFR 30-59 4 Severe decrease in GFR 15-29 5 Kidney failure <15 (or dialysis) 7 [facility] [id number] 8 SEE RESULT BELOW Name: CHRISTINA DOW : [address]: Ally Choudhury NP Acct: [id number] Unit: [id number] AGE: 86 Location: [facility] Re04/09/16 SEX: M Status: REG REF SPEC: [id number] LAMONTE: 04/09/16-[address]: Ally Choudhury NP REQ: [id number] RECD: 04/09/16 STATUS: COMP _ SOURCE: STOOL SPDESC: ORDERED: Stool Culture COMMENTS: [facility] [id number] POSSIBLE EXPOSURE TO LISTERIA CONTACTED BY [employer] Procedure Result Reported Site Stool Culture Final 04/11/16- 1409 ML Result No enteric pathogens isolated Testing for Salmonella, Shigella, Aeromonas, Plesiomonas, Yersinia and Campylobacter are included in a Stool Culture. Vibrio spp not routinely tested for in a stool culture. If testing is desired, please request specifically when placing test order. Sensitivities not routinely performed on stool isolates, as antibiotics may prolong the carriage rate of bacteria. Please contact the microbiology lab if sensitivities are required. Stool Specimen Description Final 04/10/16- 812 ML Test not performed Shiga Toxin 1 2 Final 04/10/16- 1125 ML Organism 1 Negative Shiga Toxin 1 2 CONTINUED ON NEXT PAGE * ML=Testing performed at Main Lab DEPARTMENT OF PATHOLOGY, [address] [place] [address] Jimmy He M.D. Director [facility] # [id number] Patient: CHRISTINA DOW [id number] (Continued) Specimen: [id number] Collected: 04/09/16 Received: 04/09/16-1853 (Continued) Procedure Result Reported Site Shiga Toxin 1 2 Final (continued) 04/10/16- 1125 Immunochromatographic Assay * ML - [facility] ([facility]) . END OF REPORT * ML=Testing performed at Main Lab DEPARTMENT OF PATHOLOGY, [address] [place] [address] Jimmy He M.D. Director [facility] # [id number] 9 Serologic response to B. burgdorferi infection is not detected, but cannot rule out early infection during which low or undetectable antibody levels to B. burgdorferi may be present. If clinically indicated, a new serum specimen should be submitted in 7-14 days. Test Performed by: [place] [address] [employer]: Christina Kevin II, M.D., Ph.D. 10 Comment: listeria and general culture 11 SEE RESULT BELOW Name: CHRISTINA DOW : [address]: Namrata Napoles MD Acct: [id number] Unit: [id number] AGE: 85 Location: ED Re02/21/16 SEX: M Status: DEP ER SPEC: [id number] LAMONTE: 02/21/[address] [facility] [address]: Namrata Napoles MD REQ: [id number] RECD: 02/21/16 STATUS: RAJEEV CHO DR: Paulo Mcneil MD _ SOURCE: STOOL SPDESC: ORDERED: Stool Culture COMMENTS: Comment: listeria and general culture Procedure Result Reported Site Stool Culture Final 02/23/16- 1015 ML Result No enteric pathogens isolated Testing for Salmonella, Shigella, Aeromonas, Plesiomonas, Yersinia and Campylobacter are included in a Stool Culture. Vibrio spp not routinely tested for in a stool culture. If testing is desired, please request specifically when placing test order. Sensitivities not routinely performed on stool isolates, as antibiotics may prolong the carriage rate of bacteria. Please contact the microbiology lab if sensitivities are required. Stool Specimen Description Final 02/21/16- 1106 ML Stool Color Brown Stool Form Semi-formed Stool Consistency Soft Shiga Toxin 1 2 Final 02/24/16- 1128 ML Organism 1 Negative Shiga Toxin 1 2 Immunochromatographic Assay CONTINUED ON NEXT PAGE * ML=Testing performed at Main Lab DEPARTMENT OF PATHOLOGY, [address] [place] [address] Jimmy He M.D. Director [facility] # [id number] Patient: CHRISTINA DOW [id number] (Continued) Specimen: [id number] Collected: 02/21/16 Received: 02/21/16 (Continued) Procedure Result Reported Site Shiga Toxin 1 2 Final (continued) 02/24/16- 1128 * ML - MAIN LAB ([facility]) . END OF REPORT * ML=Testing performed at Main Lab DEPARTMENT OF PATHOLOGY, [address] [place] [address] Jimmy He M.D. Director [facility] # [id number] 12 Because ethnic data is not always readily available, this report includes an eGFR for both -Americans and non- Americans. The National Kidney Disease Education Program (NKDEP) does not endorse the use of the MDRD equation for patients that are not between the ages of 18 and 70, are , have extremes of body size, muscle mass, or nutritional status, or are non- or non-. According to the National Kidney Foundation, irrespective of diagnosis, the stage of the disease is based on the level of kidney function: Stage Description GFR(mL/min/1.73 m(2)) 1 Kidney damage with normal or decreased GFR 90 2 Kidney damage with mild decrease in GFR 60-89 3 Moderate decrease in GFR 30-59 4 Severe decrease in GFR 15-29 5 Kidney failure <15 (or dialysis) 13 SEE RESULT BELOW Name: CHRISTINA DOW : [address]: Namrata Napoles MD Acct: [id number] Unit: [id number] AGE: 85 Location: ED Re02/21/16 SEX: M Status: REG ER SPEC: [id number] LAMONTE: 02/21/[address] [facility] [address]: Namrata Napoles MD REQ: [id number] RECD: 02/21/16 STATUS: RAJEEV CHO DR: Paulo Mcneil MD _ SOURCE: STOOL SPDESC: ORDERED: Fecal Lactoferr Procedure Result Reported Site Stool Specimen Description Final 02/21/16- 1121 ML Stool Color Brown Stool Form Semi-formed Stool Consistency Soft Fecal Lactoferrin (Stool WBC) Final 02/21/16- 1121 ML Fecal Lactoferrin Positive by Immunoassay TEST LIMITATIONS: Assay detects elevated levels of lactoferrin released from fecal leukocytes as a marker of intestinal inflammation. The test may not be appropriate in immunocompromised persons. Fecal samples from breast fed infants should not be used with this assay. * ML - MAIN LAB ([facility]) . END OF REPORT * ML=Testing performed at Main Lab DEPARTMENT OF PATHOLOGY, [address] [place] [address] Jimmy He M.D. Director [facility] # [id number] 14 SEE RESULT BELOW Name: KATHYCHRISTINA Sesay : [address]: Namrata Napoles MD Acct: [id number] Unit: [id number] AGE: 85 Location: ED Re02/21/16 SEX: M Status: DEP ER SPEC: [id number] LAMONTE: 02/21/[address] [facility] [address]: Namrata Napoles MD REQ: [id number] RECD: 02/21/16-124 STATUS: RAJEEV CHO DR: Paulo Mcneil MD _ SOURCE: STOOL SPDESC: ORDERED: Hemoccult Procedure Result Reported Site Stool Specimen Description Final 02/21/16- 1254 ML Stool Color Brown Stool Form Semi-formed Stool Consistency Soft Stool Occult Blood Final 02/21/16- 1254 ML Stool Occult Blood Negative * ML - [facility] ([facility]) . END OF REPORT * ML=Testing performed at [facility] DEPARTMENT OF PATHOLOGY, [address] [place] [address] Jimmy He M.D. Director [facility] # [id number] 15 S/O EXP:12/19/2015 16 Test Performed by: [place] [address] [employer]: Christina Kevin II, M.D., Ph.D. 17 REFERENCE VALUE <20.0 (Negative) Test Performed by: [place] [id number] [employer]: Christina Kevin II, M.D., Ph.D. 18 Acute inflammation: >10.00 19 Because ethnic data is not always readily available, this report includes an eGFR for both -Americans and non- Americans. The National Kidney Disease Education Program (NKDEP) does not endorse the use of the MDRD equation for patients that are not between the ages of 18 and 70, are , have extremes of body size, muscle mass, or nutritional status, or are non- or non-. According to the National Kidney Foundation, irrespective of diagnosis, the stage of the disease is based on the level of kidney function: Stage Description GFR(mL/min/1.73 m(2)) 1 Kidney damage with normal or decreased GFR 90 2 Kidney damage with mild decrease in GFR 60-89 3 Moderate decrease in GFR 30-59 4 Severe decrease in GFR 15-29 5 Kidney failure <15 (or dialysis) 20 Because ethnic data is not always readily available, this report includes an eGFR for both -Americans and non- Americans. The National Kidney Disease Education Program (NKDEP) does not endorse the use of the MDRD equation for patients that are not between the ages of 18 and 70, are , have extremes of body size, muscle mass, or nutritional status, or are non- or non-. According to the National Kidney Foundation, irrespective of diagnosis, the stage of the disease is based on the level of kidney function: Stage Description GFR(mL/min/1.73 m(2)) 1 Kidney damage with normal or decreased GFR 90 2 Kidney damage with mild decrease in GFR 60-89 3 Moderate decrease in GFR 30-59 4 Severe decrease in GFR 15-29 5 Kidney failure <15 (or dialysis) 21 Acute inflammation: >10.00 22 S/O EXP:12/19/2015 23 REFERENCE VALUE <20.0 (Negative) Test Performed by: [place] [address] [employer]: Christina Kevin II, M.D., Ph.D. 24 Test Performed by: [place] [address] [employer]: Christina Kevin II, M.D., Ph.D. 25 Because ethnic data is not always readily available, this report includes an eGFR for both -Americans and non- Americans. The National Kidney Disease Education Program (NKDEP) does not endorse the use of the MDRD equation for patients that are not between the ages of 18 and 70, are , have extremes of body size, muscle mass, or nutritional status, or are non- or non-. According to the National Kidney Foundation, irrespective of diagnosis, the stage of the disease is based on the level of kidney function: Stage Description GFR(mL/min/1.73 m(2)) 1 Kidney damage with normal or decreased GFR 90 2 Kidney damage with mild decrease in GFR 60-89 3 Moderate decrease in GFR 30-59 4 Severe decrease in GFR 15-29 5 Kidney failure <15 (or dialysis) 26 Acute inflammation: >10.00 27 S/O EXP:12/19/2015 28 Test Performed by: [place] [address] [employer]: Christina Kevin II, M.D., Ph.D. 29 REFERENCE VALUE <20.0 (Negative) Test Performed by: [place] [address] [employer]: Christina Kevin II, M.D., Ph.D. 30 one time order. Please draw with next standing order labs 31 SEE RESULT BELOW Name: CHRISTINA DOW : [address]: Sin Ibanez MD Acct: [id number] Unit: [id number] AGE: 85 [facility] SEX: M Status: REG REF SPEC: [id number] LAMONTE: 08/15/[address] [facility] [address]: Sin Ibanez MD REQ: [id number] RECD: 08/15/15 STATUS: RAJEEV CHO DR: Paulo Mcneil MD _ SOURCE: URINE SPDESC: ORDERED: Urine Culture COMMENTS: one time order. Please draw with next standing order labs Procedure Result Reported Site Urine Culture Final 08/17/15- 1012 ML No growth of clinically significant organisms * ML - MAIN LAB ([facility]) . END OF REPORT * ML=Testing performed at Main Lab DEPARTMENT OF PATHOLOGY, [address] [place] [address] Jimmy He M.D. Director [facility] # [id number] 32 *Ascorbic acid is present which may interfere with detection of blood. 33 standing order q 4 weeks or as directed 34 standing order q 4 weeks or as directed 35 Test Performed by: [place] [address] [employer]: Christina Kevin II, M.D., Ph.D. 36 REFERENCE VALUE <20.0 (Negative) Test Performed by: [place] [address] [employer]: Christina Kevin II, M.D., Ph.D. 37 Acute inflammation: >10.00 38 Because ethnic data is not always readily available, this report includes an eGFR for both -Americans and non- Americans. The National Kidney Disease Education Program (NKDEP) does not endorse the use of the MDRD equation for patients that are not between the ages of 18 and 70, are , have extremes of body size, muscle mass, or nutritional status, or are non- or non-. According to the National Kidney Foundation, irrespective of diagnosis, the stage of the disease is based on the level of kidney function: Stage Description GFR(mL/min/1.73 m(2)) 1 Kidney damage with normal or decreased GFR 90 2 Kidney damage with mild decrease in GFR 60-89 3 Moderate decrease in GFR 30-59 4 Severe decrease in GFR 15-29 5 Kidney failure <15 (or dialysis) 39 1 SST 40 Positive: 5 of the following Borrelia-specific bands: 18,23,28,30,39,41,45,58, 66, and 93. Negative: No bands or banding patterns which do not meet positive criteria. 41 Note: An equivocal or positive EIA result followed by a negative Western Blot result is considered NEGATIVE. An equivocal or positive EIA result followed by a positive Western Blot is considered POSITIVE by the CDC. Positive: 2 of the following bands: 23,39 or 41 Negative: No bands or banding patterns which do not meet positive criteria. Criteria for positivity are those recommended by CDC/ASTPHLD. p23=Osp C, h68=eusgobceh Note: Sera from individuals with the following may cross react in the [place] Western Blot assays: other spirochetal diseases (periodontal disease, leptospirosis, relapsing fever, yaws, and pinta); connective autoimmune (Rheumatoid Arthritis and Systemic Lupus Erythematosus and also individuals with Antinuclear Antibody); other infections ([place] Spotted Fever; Tristan-Vasquez Virus, and Cytomegalovirus). 42 4 sst 1 purple 43 4 sst 44 Negative <0.91 Equivocal 0.91 - 1.09 Positive >1.09 45 Negative <0.80 Equivocal 0.80 - 1.19 Positive >1.19 IgM levels may peak at 3-6 weeks post infection, then gradually decline. 46 HLA-B*27 Negative HLA allele interpretation for all loci based on IMGT/HLA database version 3.15 [facility] CLIA ID Number [id number] This test was performed using PCR (Polymerase Chain Reaction)/SSOP (Sequence Specific Oligonucleotide Probes) technique. SBT (Sequence Based Typing) and/or SSP (Sequence Specific Primers) may be used as supplemental methods when necessary. Please contact [facility] Customer Service at if you have any questions. Director of [facility] Laboratory Dr Benito Granados, PhD 47 Protein electrophoresis scan will follow via computer, mail, or fly frame tender delivery. 48 Negative <1:80 Borderline 1:80 Positive >1:80 49 Negative <20 Weak positive 20 - 39 Moderate positive 40 - 59 Strong positive >59 50 1 sst 51 This test was developed and its performance characteristics determined by [facility]. It has not been cleared or approved by the U.S. Food and Drug Administration. The FDA has determined that such clearance or approval is not necessary. This test is used for clinical purposes. It should not be regarded as investigational or research. 52 IgG titers if 1:64 or greater indicate exposure or acute and convalescent samples showing a four-fold increase, and/or the presence of IgM indicate recent or current infection. 53 HGE IgG levels are detectable 7 to 10 days post infection and persist approximately one year. 54 IgM levels usually rise 3 to 5 days post infection and fall to normal levels in approximately 30 to 60 days. 55 Negative <0.91 Equivocal 0.91 - 1.09 Positive >1.09 56 Negative <0.80 Equivocal 0.80 - 1.19 Positive >1.19 IgM levels may peak at 3-6 weeks post infection, then gradually decline. 57 IgG titers if 1:64 or greater indicate exposure or acute and convalescent samples showing a four-fold increase, and/or the presence of IgM indicate recent or current infection. This test was developed and its performance characteristics determined by [facility]. It has not been cleared or approved by the U.S. Food and Drug Administration. The FDA has determined that such clearance or approval is not necessary. This test is used for clinical purposes. It should not be regarded as investigational or for research. 58 HGE IgG levels are detectable 7 to 10 days post infection and persist approximately one year. This test was developed and its performance characteristics determined by [employer]. It has not been cleared or approved by the U.S. Food and Drug Administration. The FDA has determined that such clearance or approval is not necessary. This test is used for clinical purposes. It should not be regarded as investigational or for research. 59 IgM levels usually rise 3 to 5 days post infection and fall to normal levels in approximately 30 to 60 days. This test was developed and its performance characteristics determined by [employer]. It has not been cleared or approved by the U.S. Food and Drug Administration. The FDA has determined that such clearance or approval is not necessary. This test is used for clinical purposes. It should not be regarded as investigational or for research. 60 This test was developed and its performance characteristics determined by [facility]. It has not been cleared or approved by the U.S. Food and Drug Administration. The FDA has determined that such clearance or approval is not necessary. This test is used for clinical purposes. It should not be regarded as investigational or research. 61 Negative <0.91 Equivocal 0.91 - 1.09 Positive >1.09 Please note reference interval change 62 Negative <0.80 Equivocal 0.80 - 1.19 Positive >1.19 IgM levels may peak at 3-6 weeks post infection, then gradually decline. 63 Negative <1:80 Borderline 1:80 Positive >1:80 64 * SERUM LEVELS OF PSA MEASURED USING THE [employer] HYBRITECH IMMUNOASSAY SHOULD NOT BE INTERPRETED ABSOLUTE EVIDENCE OF THE PRESENCE OR ABSENCE OF DISEASE. THE PSA VALUE SHOULD BE USED IN CONJUNCTION WITH OTHER PERTINENT CLINICAL DIAGNOSTIC PROCEDURES. 65 RESULT CAMMIE'D 66 RESULT CAMMIE'D 67 FASTING 68 Anion gap measurement may be of limited value in the presence of any alkalosis, especially in a combined acid base disorder. . 69 New Reference Range and Interpretation effective 05/05/02 TnI (ng/ml) INTERPRETATION <0.06 ng/ml NOT SUPPORTIVE OF DIAGNOSIS OF [place] 0.06 - 0.50 ng/ml INDETERMINATE: SUGGEST SERIAL STUDIES IF CLINICALLY INDICATED. > 0.5 ng/ml CONSISTENT WITH DIAGNOSIS OF [place] . 70 * SERUM LEVELS OF PSA MEASURED USING THE [employer] ACCESS HYBRITECH IMMUNOASSAY SHOULD NOT BE INTERPRETED ABSOLUTE EVIDENCE OF THE PRESENCE OR ABSENCE OF DISEASE. THE PSA VALUE SHOULD BE USED IN CONJUNCTION WITH OTHER PERTINENT CLINICAL DIAGNOSTIC PROCEDURES. 71 Values obtained with different assay methods or kits cannot be used interchangeably. . Procedures Date Code Description Status 07/02/2017 52931 Electrocardiogram Complete Completed 12/21/2012 15889 Remove Foreign Body Subcutaneous Simple Completed 06/09/2012 32955 Pulse Oximetry Completed 09/11/2002 20218 Electrocardiogram Complete Completed 09/11/2002 46338 Destruction-1 Beign Lesion Completed Encounters Type Date Location Provider Dx Diagnosis Office Visit 12/05/2018 Main Office Paulo Mcneil, S20.211A Contusion of right 4:40p M.D. front wall of thorax, initial encounter S70.11xA Contusion of right thigh, initial encounter I48.2 Chronic atrial fibrillation W10.8xxA Fall (on) (from) other stairs and steps, initial encounter Office Visit 06/27/2018 3:00p Main Office Paulo Stone S20.20xD Contusion of Main Mcneil thorax, unspecified, subsequent encounter W01.198D Fall same lev from slip/trip w strike agnst oth object, subs Office Visit 06/14/2018 2:45p [facility] Brittany Lemons R07.89 Other chest pain SMITHA Small Office Visit 05/19/2018 2:40p [facility] Office Paulo Stone Z23 Encounter for Main Mcneil immunization I48.2 Chronic atrial fibrillation I10 Essential (primary) hypertension Office Visit 01/13/2018 1:00p [facility] Office Paulo Stone I10 Essential ( primary) Main Mcneil hypertension I48.2 Chronic atrial fibrillation N40.1 Benign prostatic hyperplasia with lower urinary tract symp Office Visit 10/12/2017 12:20p Main Office Paulo Mcneil, I10 Essential ( primary) M.DFestus hypertension N40.0 Benign prostatic hyperplasia without lower urinry tract symp I48.2 Chronic atrial fibrillation Office Visit 08/20/2017 11:40a Main Office Paulo Mcneil, K13.70 Unspecified lesions M.D. of oral mucosa I48.2 Chronic atrial fibrillation Office Visit 07/02/2017 1:40p Main Office Paulo Mcneil, Z00.01 Encounter for M.D. general adult medical exam w abnormal findings I10 Essential (primary) hypertension K40.90 Unil inguinal hernia, w/o obst or gangr, not spcf as recur I48.2 Chronic atrial fibrillation N40.0 Benign prostatic hyperplasia without lower urinry tract symp Office Visit 06/17/2017 3:30p [facility] Nan Orona, K40.90 Unil inguinal [employer] hernia, w/o obst or gangr, not spcf as recur Z23 Encounter for immunization Office Visit 06/07/2017 10:10a Main Office Paulo Mcneil, J06.9 Acute upper M.D. respiratory infection, unspecified I10 Essential (primary) hypertension Office Visit 05/29/2017 10:45a Main Office Jia Hall, J06.9 Acute upper Afnp-C respiratory infection, unspecified H65.01 Acute serous otitis media, right ear Office Visit 01/05/2017 10:00a [facility] Ruddy Samson, R05 Cough M.D. 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 unspecified Office Visit 09/26/2015 10:00a [facility] Paulo Stone I10 Essential Main Mcneil (primary) hypertension M06.4 Inflammatory polyarthropathy Office Visit 08/16/2015 8:40a Main Office Paulo Mcneil, N39.0 Urinary tract M.D. 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 pain I10 Essential (primary) hypertension K30 Functional dyspepsia M79.641 Pain in right hand M79.642 Pain in left hand Office Visit 04/29/2015 9:10a Main Office Ruddy Samson, 719.49 Pain Joint M.D. Multiple Sites 786.2 Cough Office Visit 04/12/2015 2:15p Main Office Nan Orona, 719.44 Pain Joint Hand [employer] Office Visit 04/03/2015 3:30p [facility] Ally Choudhury 719.49 Pain Joint Afnp-C Multiple Sites 723.1 Cervicalgia Office Visit 09/26/2014 3:15p Main Office Nan Orona, 729.5 Pain In Limb [employer] Office Visit 09/04/2014 1:00p [facility] Osmel Rivers 719.44 Pain Joint Hand M.D. Office Visit 08/13/2014 1:45p Main Office Nan Orona, 461.9 Sinusitis Acute [employer] Unspec Office Visit 04/12/2014 2:30p [facility] Nan Orona, 401.1 Hypertension [employer] Benign Office Visit 04/13/2013 2:30p [facility] Nan Orona, 401.1 Hypertension [employer] Benign Office Visit 12/21/2012 3:00p [facility] Ally Choudhury, E906.4 Bite Nonvenomous Afnp-C Arthropod 916.4 Injury Superficial Insect Bite Hip Thigh Leg Ankle NV No Inf Office Visit 07/13/2012 3:30p [facility] Sonny Espinoza E906.3 Bite Juan Fernandez M.D. Animal Except Arthropod 883.0 Open Wound Finger(S) W/O Complication Office Visit 06/09/2012 4:15p [facility] Nan Orona, 466.0 Bronchitis Acute [employer] Office Visit 04/20/2012 1:30p Main Office Nan Orona, 401.1 Hypertension [employer] Benign V04.81 Need For Prophylactic Vaccination & Inoculation/Influenza Office Visit 03/30/2011 1:15p Main Office Nan Orona 401.1 Hypertension [employer] Benign Office Visit 01/14/2011 11:20a Main Office Krista dueñas E906.4 Bite Nonvenomous Kimberly M.D. Arthropod Office Visit 04/03/2010 11:30a [facility] Nan Orona 401.1 Hypertension Office [employer] Benign Office Visit 04/12/2009 1:45p Main Office Nan Orona, 401.1 Hypertension [employer] Benign V04.81 Need For Prophylactic Vaccination & Inoculation/Influenza Office Visit 06/18/2008 9:00a Main Office Ruddy James 782.1 Rash & Other Nonspec Main Samson Skin Eruption Office Visit 06/08/2008 1:15p Main Office Ally Choudhury, 462 Pharyngitis Acute Afnp-C Office Visit 04/13/2008 1:00p Main Office Nan Orona 401.1 Hypertension Benign [employer] 790.93 Prostate Specific Antigen (PSA) Elevated Office Visit 09/05/2007 11:00a Main Office Jia 465.9 URI Upper H[place]dorf, Respiratory Afnp-C Infections Acute Unspec Sites Office Visit 07/22/2007 2:10p [facility] Ruddy James 461.8 Sinusitis Acute Main Samson Other Office Visit 04/06/2007 10:50a [facility] Sonny Espinoza 401.1 Hypertension Main Fernandez Benign 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 E906.3 Bite Other Animal Except Arthropod Office Visit 02/23/2006 11:20a Main Office Sonny Fernandez, 401.1 Hypertension Melissa Quach V76.44 Screening For Malig Matthew Prostate 216.9 Benign Neoplasm Skin Site Unspec V76.41 Screening Malignant Neoplasm Rectum Office Visit 11/05/2004 9:00a [facility] Sonny Espinoza 401.9 Hypertension Main Fernandez Unspec Office Visit 12/28/2003 10:40a Main Office Paulo Stone 380.10 Otitis Externa Main Mcneil Infective Unspec Office Visit 12/25/2003 2:10p Main Office Sonny Espinoza 388.70 Otalgia & Earache Main Fernandez Unspec Office Visit 06/26/2003 2:00p Main Office Sonny Espinoza 478.1 Nasal Cavity & Main Fernandez Sinuses Other Diseases Office Visit 04/23/2003 10:10a Main Office Sonny Espinoza 401.1 Hypertension Main Fernandez Benign V04.8 Need For Vaccination & Inoculation Other Viral Diseases Office Visit 09/11/2002 9:00a Main Office Sonny Fernandez, 702.19 Seborrheic Main Keratosis Other 786.50 Pain Chest Unspec 401.1 Hypertension Benign Office Visit 12/27/2001 9:40a Main Office Sonny Fernandez M.D. Office Visit 10/23/2000 10:00a Main Office Chuy Card M.D. Office Visit 07/30/2000 1:00p Main Office Jimmy Ocampo M.D. Plan of Treatment Future Appointment(s):05/25/2019 1:00 pm - Paulo Mcneil M.D. at [facility] [id number]/02/2019 - Ruddy Ling, MDR51 HeadacheComments:resume half the former Green tea intake.increase your free water intake too.Take 1000mg tylenol now with some green tea for the headache.Resume checking your BP and call us later this week with readings.I10 Essential (primary) hypertensionAllComments: Medication Management Patient Understands medications he's taking? Yes No Are there Barriersto Adherence? Yes No Has the patient been asked about herbal supplements and therapies, and OTC meds? Yes No
--- NOTE | 2019-01-02 23:45 | ED ---
Neurological HPI - HPI Summary HPI Summary: The patient is an 88 y/o M presenting to [facility] accompanied by son with a chief complaint of sudden onset decreased in coordination of the RUE tonight. He reports that he was trying to medicate his cat using a syringe, but he was unable to use the syringe; he was also eating dinner and was unable to bring the fork to his mouth. He didn't have any difficulty feeding the cat this morning or eating lunch. He also notes that he fell down the stairs outside approximately a month ago, and at that time he clipped his head on the concrete ; he doesn't remember if there was LOC at this time. Initially after the fall he was having headaches, which he usual doesn't have. The headaches subsided, but then returned over the last few days. He additionally c/o fever, chills, and difficulty sleeping secondary to the headaches. He was at his PCP today and had a normal neurological exam. He denies any AMS or slurred speech. Hx of Afib controlled by Eliquis (last taken at 1800 tonight). Former smoker, no EtOH, no substance use. - History of Current Complaint Chief Complaint: EDNeurologicalDeficit Stated Complaint: LOSS OF COORDINATION PER PT Time Seen by Provider: 01/02/19 23:26 Hx Obtained From: Patient Onset/Duration: Sudden Onset, Started hours ago, Still Present Timing: Sudden Onset Onset Severity: Moderate Current Severity: Moderate Headache Location: Frontal Pain Intensity: 6 Pain Scale Used: 0-10 Numeric Character: Motor Weakness - RUE coordination Aggravating: Nothing Alleviating: Nothing Associated Signs and Symptoms: Positive: Headache, Fever. Negative: AMS, Impaired Speech - Allergy/Home Medications Allergies/Adverse Reactions: Allergies Allergy/AdvReac Type Severity Reaction Status Date / Time ciprofloxacin [From Cipro] Allergy Muscle Ache Verified 06/13/18 14:40 clindamycin Allergy Hives Verified 06/13/18 14:40 Penicillins Allergy Anaphylatic Verified 06/13/18 14:40 Shock ibuprofen AdvReac GI Upset Verified 06/13/18 14:40 PMH/Surg Hx/FS Hx/Imm Hx Endocrine/Hematology History: Denies: Hx Diabetes, Hx Thyroid Disease Cardiovascular History: Reports: Hx Atrial Fibrillation, Hx Hypertension - on meds Comment Only: Other Cardiovascular Problems/Disorders - high blood pressure Respiratory History: Denies: Hx Asthma, Hx Chronic Obstructive Pulmonary Disease (COPD) GI History: Denies: Hx Ulcer, Other GI Disorders History: Reports: Other Problems/Disorders - BPH, has patel currently Musculoskeletal History: Reports: Hx Arthritis - RA and OA, Hx Rheumatoid Arthritis - no active treatment, Other Musculoskeletal History - DJD Sensory History: Denies: Hx Contacts or Glasses, Hx Hearing Aid Opthamlomology History: Denies: Hx Contacts or Glasses - Surgical History Surgery Procedure, Year, and Place: appendectomy 1939. right inguinal hernia repair with mesh aug 2017 - [facility] – [place]. TURP Apr 2018 Hx Anesthesia Reactions: No Infectious Disease History: No Infectious Disease History: Denies: Hx Clostridium Difficile, Hx Hepatitis, Hx Human Immunodeficiency Virus (HIV), Hx of Known/Suspected MRSA, Hx Shingles, Hx Tuberculosis, Hx Known/ Suspected VRE, Hx Known/Suspected VRSA, History Other Infectious Disease, Traveled Outside the [place] in Last 30 Days - Family History Known Family History: Negative: Cardiac Disease, Hypertension - Social History Alcohol Use: None Hx Substance Use: No Substance Use Type: Reports: None Hx Tobacco Use: Yes Smoking Status (MU): Former Smoker Type: Cigarettes Amount Used/How Often: 3/4 pack for 20 yrs Have You Smoked in the Last Year: No Review of Systems Positive: Fever, Chills Neurological: Other - POSITIVE: decreased coordination of right arm; NEGATIVE: AMS Positive: Headache - causing difficulty sleeping. Negative: Slurred Speech All Other Systems Reviewed And Are Negative: Yes Physical Exam - Summary Physical Exam Summary: Appearance: Well-appearing, Well-nourished, lying in bed comfortably Skin: Warm, dry, no obvious rash Eyes: sclera anicteric, no conjunctival pallor ENT: mucous membranes moist, pharynx appears normal Neck: Supple, nontender Respiratory: Clear to auscultation, no signs of respiratory distress Cardiovascular: Normal S1, S2. No murmurs. Normal distal pulses in tibial and radial bilaterally. Abdomen: Soft, nontender, normal active bowel sounds present Musculoskeletal: Normal, Strength/ROM Intact, Motor function in all 4 extremities is normal and symmetric. There is no rigidity or tremor noted. Neurological: A&Ox3, awake and alert, mentation is normal, speech is fluent and appropriate, Level of consciousness nml. The patient is alert and oriented. Cranial nerves are grossly intact. Gaze is conjugate and without nystagmus. Peripheral vision is intact to confrontation. There are no gross sensory abnormalities to light touch. There is no truncal or fine motor ataxia except there is dysmetria worse on the right on finger to nose test. Gait is normal. Psychiatric: affect is normal, does not appear anxious or depressed Triage Information Reviewed: Yes Vital Signs On Initial Exam: Initial Vitals Temp Pulse Resp BP Pulse Ox 99.3 F 70 18 191/71 98 01/02/19 19:51 01/02/19 19:51 01/02/19 19:51 01/02/19 19:51 01/02/19 19:51 Vital Signs Reviewed: Yes - Yany Coma Scale Best Eye Response: 4 - Spontaneous Best Motor Response: 6 - Obeys Commands Best Verbal Response: 5 - Oriented Coma Scale Total: 15 Diagnostics - Vital Signs Vital Signs Temp Pulse Resp BP Pulse Ox 01/02/19 22:08 98.2 F 57 18 162/69 99 01/02/19 19:51 99.3 F 70 18 191/71 98 - Laboratory Result Diagrams: 01/03/19 05:37 01/03/19 05:37 Lab Statement: Any lab studies that have been ordered have been reviewed, and results considered in the medical decision making process. - CT Brain CT CT Interpretation Completed By: Radiologist Summary of CT Findings: 1. Bilateral mixed density subdural hemorrhages containing both acute and hypodense non-acute blood products measuring 1.3 cm on the left and 9 mm on the right. 2. Balanced mass effect without significant midline shift. ED physician has reviewed this radiology report. - EKG 0014 Cardiac Rate: Other Rate - 52 BPM EKG Rhythm: Atrial Fibrillation Summary of EKG Findings: RBBB. No STEMI. NIH Scale - NIH Scale Level of Consciousness: Alert/Keenly Responsive Ask Patient the Month and His/Her Age: Both Correct Ask Pt to Open/Close Eyes and Service Unit Operator Oil Well/Release Non-Paretic Hand: Both Correctly Best Gaze (Only Horizontal Eye Movement): Normal Visual Field Testing: No Visual Loss Facial Paresis-Pt to Smile & Close Eyes or Grimace Symmetry: Normal/Symmetrical Motor Function - Right Arm: No Drift-Holds 10 Seconds Motor Function - Left Arm: No Drift-Holds 10 Seconds Motor Function - Right Leg: No Drift-Holds 10 Seconds Motor Function - Left Leg: No Drift-Holds 10 Seconds Limb Ataxia-Must be out of Proportion to Weakness Present: Present in Two Limbs Sensory (Use Pinprick to Test Arms/Legs/Trunk/Face): Normal Best Language (Describe Picture, Name Items): No Aphasia Dysarthria (Read Several Words): Normal Extinction and Inattention: No Abnormality Total Score: 2 Re-Evaluation - Re-Evaluation First Eval Re-Evaluation Time: 01:00 Comment: I spoke with the patient and his son concerning results and need for admission. Course/Dx - Course Course Of Treatment: The patient is an 88 y/o M presenting to [facility] accompanied by son with a chief complaint of sudden onset decreased in coordination of the RUE tonight while trying to feed his cat and eat his dinner. He fell down the stairs outside approximately a month ago, and at that time he clipped his head on the concrete; unsure if LOC. Additionally c/o fever, chills, and difficulty sleeping secondary to headaches. Denies AMS or slurred speech. Hx of Afib controlled by Eliquis. Upon physical exam, the patient exhibits dysmetria worse on the right on finger to nose test. In the ED course, the patient was administered Tranexamic Acid and Keppra. Blood work reveals hgb of 13.1, hct of 38, abs monos of 1.3, INR of 1.98, sodium of 132, chloride of 99, creatinine of 1.19, glucose of 134, and total bilirubin of 1.10. EKG reveals atrial fibrillation at [address] reveals subdural hemorrhages containing both acute and hypodense non-acute blood products measuring 1.3 cm on the left and 9 mm on the right; balanced mass effect without significant midline shift. He is diagnosed with subdural hematoma. I spoke with Dr. Garcia at 0030, and he suggests admission for the patient based on CT results. At 0043, I discussed the patient's case with Dr. Terrazas, hospitalist, and she accepts the patient for admission at this time. The patient and his son agree with this plan and understand the need for admission at this time. - Diagnoses Provider Diagnoses: Subdural hematoma - Physician Notifications Discussed Care Of Patient With: Oscar Garcia - neurosurgery Time Discussed With Above Provider: 00:30 Instructed by Provider To: Other - I spoke with Dr. Garcia, and he suggests admission for the patient based on CT results. At 0043, I discussed the patient' s case with Dr. Terrazas, hospitalist, and she accepts the patient for admission at this time. - Critical Care Time Critical Care Time: 30-74 min Discharge - Sign-Out/Discharge Documenting (check all that apply): Patient Departure - Patient is accepted for admission by Dr. Terrazas. Patient Received Moderate/Deep Sedation with Procedure: No - Discharge Plan Condition: Stable Disposition: ADMITTED TO [facility] - Billing Disposition and Condition Condition: STABLE Disposition: Admitted to [facility] - Attestation Statements Document Initiated by Juni: Yes Documenting Scribe: Aviva Oliver Provider For Whom Juni is Documenting (Include Credential): Dr. Mehul Jean MD Scribe Attestation: I, Aviva Oliver, scribed for Dr. Mehul Jean MD on 01/04/19 at 0447. Scribe Documentation Reviewed: Yes Provider Attestation: The documentation as recorded by the Aviva black accurately reflects the service I personally performed and the decisions made by me, Dr. Mehul Jean MD Status of Scribe Document: Viewed
[2019-01-03 00:21] LABS: ABS Lymphocytes 2.4 10^3/ul (1.0-4.8); ABS Monocytes 1.3 10^3/ul (0-0.8); ABS Neutrophils 6.8 10^3/ul (1.5-7.7); Eosinophil % 0.2 %; Hematocrit 38 % (42-52); Hemoglobin 13.1 g/dL (14.0-18.0); Lymphocyte % 22.9 %; Mean Corpuscular HGB Conc 35 g/dL (31-36); Mean Corpuscular Hemoglobin 31 pg (27-31); Mean Corpuscular Volume 90 fL (80-94); Mean Platelet Volume 7.9 fL (7.4-10.4); Platelet Count 182 10^3/uL (150-450); Red Blood Count 4.22 10^6 /uL (4.18-5.48); Red Cell Distribution Width 14 % (10.5-15); White Blood Count 10.6 10^3/uL (3.5-10.8)
[2019-01-03] MEDS ORDERED: Tranexamic Acid 1,000 MG/10 ML 1,000 MG in NS 0.9% 50 ML* 50 ML IV ONE (00:29)
[2019-01-03 00:32] LABS: INR 1.98 (0.82-1.09)
[2019-01-03 00:39] LABS: Albumin 4.2 g/dL (3.2-5.2); Albumin/Globulin Ratio 1.4 (1-3); BUN/Creatinine Ratio 19.3 (8-20); Calcium 9.5 mg/dL (8.6-10.3); EGFR African American 69.8 (>60); EGFR Non-African American 57.7 (>60); Globulin 2.9 g/dL (2-4); Potassium 3.6 mmol/L (3.5-5.0); Total Bilirubin 1.1 mg/dL (0.2-1.0); Total Protein 7.1 g/dL (6.4-8.9)
[2019-01-03 00:41] LABS: Troponin I 0.01 ng/mL (<0.04)
[2019-01-03 00:48] LABS: Activated Partial Thrombo Time 35.1 seconds (26.0-38.0)
[2019-01-03] MEDS ORDERED: Ondansetron INJ* 2 MG/ML VIAL IV PRN (01:17)
[2019-01-03] MEDS ORDERED: Acetaminophen TAB* 325 MG PO PRN (01:17)
[2019-01-03] MEDS ORDERED: Al Hydrox/Mg Hydrox/Simet LIQ* 30 ML UDC PO PRN (01:17)
[2019-01-03] MEDS ORDERED: hydrALAZINE IV* 20 MG/ML VIAL IV SLOW PU PRN (01:35)
[2019-01-03] MEDS ORDERED: levETIRAcetam 1000MG IVPREMIX* 1,000 MG/100 ML BAG IVPB ONE (01:35)
[2019-01-03 03:15] LABS: Urine Appearance Clear; Urine Bacteria Absent (Absent); Urine Bilirubin Negative (Negative); Urine Blood 2+ (Negative); Urine Color Yellow; Urine Glucose Negative (Negative); Urine Ketones Trace (Negative); Urine Nitrite Negative (Negative); Urine Protein 2+(100 mg/dL) (Negative); Urine Red Blood Cell 2+(6-10/hpf) (Absent); Urine Specific Gravity 1.019 (1.010-1.030); Urine Urobilinogen Negative (Negative); Urine White Blood Cell Trace(0-5/hpf) (Absent)
--- NOTE | 2019-01-03 03:15 | HP ---
CC: Paulo Mcneil MD * HISTORY AND PHYSICAL: DATE OF ADMISSION: 01/03/19 TIME OF EVALUATION: 0100 PRIMARY CARE PHYSICIAN: Paulo Mcneil MD CHIEF COMPLAINT: Difficulty with fine motor skills. HISTORY OF PRESENT ILLNESS: This is an 88-year-old male with a past medical history of atrial fibrillation, on Eliquis, who states he fell 3 weeks ago outside when he was carrying groceries. He missed the second step and he fell backwards and hit his head on the concrete. He states he was still worried about fracturing his hip. He is not sure if he lost any consciousness. He denied any nausea or vomiting. Incidentally, he had his annual visit with Dr. Mcneil that day. No neuro deficits at that time and no CT scan was ordered at that time. He states a few days ago, he had a significant headache, fever and flu-like illness. He was concerned for Lyme. He took Tylenol, which did help. He followed up with his primary today, again normal neuro exam. However, later in the day, he was unable to give his cat her medicine for her thyroid in a syringe, was having difficulty and feeling very clumsy, which was new. Normally, he gives his cat medicine twice a day. Later on, he tried to eat his meal. He is having a trouble putting his fork to his mouth. His son brought him here to the emergency room for further evaluation. No headache at this time. He did note his blood pressure was very elevated at the primary care physician office with systolic of 187. No nausea or vomiting. No chest pain, no headache, no vision changes, no urinary symptoms, no abdominal discomfort. Otherwise, remaining review of systems is negative. In the emergency room, the patient had labs and imaging. CAT scan found subdural hematoma. Dr. Garcia was contacted, who recommended admission and followup CAT scan in the morning. PAST MEDICAL HISTORY: 1. Atrial fibrillation, on anticoagulation. 2. History of BPH, status post TURP. 3. Hypertension. 4. History of hernia repair. 5. History of sternum fracture after a fall in June 2018. MEDICATIONS: 1. Eliquis 5 mg p.o. b.i.d., last took at 6 p.m. 2. Amlodipine 10 mg p.o. daily. 3. Multivitamin daily. 4. Folic acid 1 mg p.o. daily. ALLERGIES: CIPRO, CLINDA, PENICILLIN, IBUPROFEN. FAMILY HISTORY: Reviewed, noncontributory. SOCIAL HISTORY: The patient lives at home alone with his 4 cats. He is independent with his ADLs. He still drives. His healthcare proxy is his son, Mary Ann Dow. He is . His code status, he is DNR/DNI. MOLST form will be completed this evening. REVIEW OF SYSTEMS: A 14-point review of systems as mentioned in the HPI, otherwise negative. PHYSICAL EXAMINATION GENERAL: In no acute distress, resting comfortably. VITALS: Temp 98.2, pulse rate 57, respiratory rate 18, oxygen saturation 99% on room air, blood pressure 162/59. HEENT: Head normocephalic. Pupils are equal and reactive. Sclerae anicteric. Oropharynx: Mucous membranes moist. NECK: Supple. No lymphadenopathy. RESPIRATORY: Diminished breath sounds with no wheezes, rhonchi, or rales. CARDIAC: Irregularly irregular rate and rhythm with soft, systolic murmur heard throughout. ABDOMEN: Soft, nontender, nondistended. EXTREMITIES: No clubbing, cyanosis, or edema. +1 DPs. NEUROLOGIC: Cranial nerves II through XII intact. Negative pronator drift. Upper and lower muscle strength equal and symmetric. Some mild mnshla-me-bhch abnormality, but very subtle. Normal [id number]. Alert and oriented x3. LABORATORY DATA: White count 10.6, hemoglobin 13.1, hematocrit 38, platelets 182. INR is 1.98. Sodium 132, potassium 3.6, chloride 99, bicarb 23, BUN 23, creatinine 1.19, glucose 134. RADIOGRAPHIC DATA: Head CT, bilateral mixed density subdural hemorrhages containing both acute and hypodense nonacute blood products measuring 1.3 cm on left and 9 mm on the right, balanced mass effect without significant midline shift. EKG shows atrial fibrillation with right bundle-branch block. ASSESSMENT AND PLAN: This is an 88-year-old male with past medical history of atrial fibrillation, on Eliquis, who presented with fine motor deficits in the setting of a fall 3 weeks ago. 1. Fall with now fine motor deficits. Assessment: The patient with bilateral subdural hematomas in the setting of being on Eliquis. Dr. Jean spoke with Dr. Garcia, regarding no indication for reversal agent. His neuro exam is nearly normal. Plan: Admit him for observation in the ICU to allow for neuro checks q.2 hours at least for the next 12 hours. We will repeat his head CT in the morning. Continue his adequate blood pressure control. We will keep him n.p.o. for now and then recommend dysphagia screening in the morning to advance his diet. PT/ OT eval and followup with Dr. Garcia in the morning and repeat his labs in the morning as well. We will also order bladder scan and PVR. 2. Chronic medical problems, hypertension. Continue him on his amlodipine and p.r.n. hydralazine. 3. Atrial fibrillation. The patient currently rate controlled in atrial fibrillation, no longer candidate for anticoagulation. 4. FEN: As mentioned, n.p.o. for now, advance once he pass his dysphagia screen in the morning. 5. Code status: The patient confirmed he is DNR/DNI. MOLST form will be completed. 6. DVT prophylaxis. The patient scores high risk. We will place him on SCDs. PATIENT TIME: Greater than 45 minutes was spent doing the history and physical , more than half the time spent in direct patient contact and critical care time. [id number]/CPS #: [id number] BEN
[2019-01-03 05:55] LABS: ABS Lymphocytes 1.7 10^3/ul (1.0-4.8); ABS Neutrophils 5.5 10^3/ul (1.5-7.7); Eosinophil % 0.3 %; Hematocrit 38 % (42-52); Hemoglobin 12.9 g/dL (14.0-18.0); Lymphocyte % 20.8 %; Mean Corpuscular HGB Conc 34 g/dL (31-36); Mean Corpuscular Hemoglobin 31 pg (27-31); Mean Corpuscular Volume 89 fL (80-94); Nucleated Red Blood Cells % 0.2; Platelet Count 167 10^3/uL (150-450); Red Blood Count 4.23 10^6 /uL (4.18-5.48); Red Cell Distribution Width 14 % (10.5-15); White Blood Count 8.3 10^3/uL (3.5-10.8)
[2019-01-03 05:59] LABS: INR 1.85 (0.82-1.09)
[2019-01-03 06:13] LABS: BUN/Creatinine Ratio 20.4 (8-20); Calcium 9.6 mg/dL (8.6-10.3); EGFR African American 87.3 (>60); EGFR Non-African American 72.2 (>60); Potassium 3.7 mmol/L (3.5-5.0)
[2019-01-03] MEDS: levETIRAcetam TAB* 500 MG PO SCH ×2 (08:17→20:19)
[2019-01-03] MEDS: Folic Acid TAB* 1 MG PO SCH (08:17)
[2019-01-03] MEDS: amLODIPine TAB* 5 MG PO SCH (08:17)
--- NOTE | 2019-01-03 16:07 | PN ---
Subjective Date of Service: 01/03/19 Interval History: HOSPITALIST PROGRESS NOTE Patient seen and examined at bedside. Care reviewed and d/w Jayla Marroquin RN. He feels much better today. Right hand clumsiness is resolved, denies MIRELES, N/V. Family History: Unchanged from Admission Social History: Unchanged from Admission Past Medical History: Unchanged from Admission Objective Active Medications: Acetaminophen (Tylenol Tab*) 650 mg PO Q4H PRN PRN Reason: FEVER/PAIN Al Hydrox/Mg Hydrox/Simethicone (Maalox Plus*) 30 ml PO Q6H PRN PRN Reason: INDIGESTION Amlodipine Besylate (Norvasc Tab*) 10 mg PO DAILY [facility] Last Admin: 01/03/19 08:17 Dose: 10 mg Folic Acid (Folvite Tab*) 1 mg PO QAM [facility] Last Admin: 01/03/19 08:17 Dose: 1 mg Hydralazine HCl (Apresoline Iv*) 5 mg IV SLOW PU Q6H PRN PRN Reason: BLOOD PRESSURE Levetiracetam (Keppra Tab*) 500 mg PO BID [facility] Last Admin: 01/03/19 08:17 Dose: 500 mg Ondansetron HCl (Zofran Inj*) 4 mg IV Q4H PRN PRN Reason: NAUSEA/VOMITING Vital Signs - 8 hr 01/03/19 01/03/19 01/03/19 08:04 08:05 09:00 Temperature 99.2 F Pulse Rate 64 57 Respiratory 17 24 Rate Blood Pressure 171/70 (mmHg) O2 Sat by Pulse 99 96 Oximetry 01/03/19 01/03/19 01/03/19 09:01 10:00 11:00 Temperature Pulse Rate 53 Respiratory 18 24 18 Rate Blood Pressure 148/58 145/57 (mmHg) O2 Sat by Pulse 97 94 Oximetry 01/03/19 01/03/19 01/03/19 11:16 12:00 13:00 Temperature 99 F Pulse Rate 81 64 Respiratory 23 15 Rate Blood Pressure 146/65 164/73 (mmHg) O2 Sat by Pulse 96 98 97 Oximetry 01/03/19 01/03/19 14:00 14:01 Temperature Pulse Rate 54 55 Respiratory 20 17 Rate Blood Pressure 156/71 (mmHg) O2 Sat by Pulse 99 99 Oximetry Oxygen Devices in Use Now: None Appearance: Pleasant elderly gentleman sitting up in bed in NAD. Eyes: No Scleral Icterus Ears/Nose/Mouth/Throat: Mucous Membranes Moist Neck: Trachea Midline Respiratory: Symmetrical Chest Expansion and Respiratory Effort, Clear to Auscultation Cardiovascular: - - Normal S1 and S2, irregularly irregular Abdominal: NL Sounds; No Tenderness; No Distention Neurological: Alert and Oriented x 3, NL Muscle Strength and Tone, - - Right hand clumsiness is resolved, no focal weakness noted, finger to nose intact Result Diagrams: 01/03/19 05:37 01/03/19 05:37 Microbiology and Other Data: Microbiology 01/03/19 03:30 Nasal Screen MRSA (PCR) - Final Nasal Mrsa Not Detected Assess/Plan/Problems-Billing Assessment: Mr Dow is an 88yo M with PMH of Afib on AC, BPH s/p TURP, HTN, fracture sternum, who sustained a fall 3 weeks ago; presented to ED with right hand clumsiness, found to have SDH. - Patient Problems (1) SDH (subdural hematoma) Comment: - Initial CT brain showed bilateral mixed density SDH measuring 1.3cm L and 0.9cm R, balanced mass effect with no significant shift. F/u CT is stable. - Neurosurgery input appreciated - case d/w Dr Garcia - patient will eventually need drainage, but needs to wait for Apixaban clearance - 5-7 days. Also concerned his right hand clumsiness could represent partial seizure - will continue Keppra and requested Neurology consult with Dr Samaniego. - Continue neurochecks and monitor in ICU. (2) HTN (hypertension) Comment: - Continue amlodipine. (3) Atrial fibrillation Comment: - Rate is controlled. - Apixaban discontinued in the setting of SDH. (4) DVT prophylaxis Comment: - SCDs. Status and Disposition: Inpatient.
[2019-01-03] MEDS ORDERED: Sodium Phosphate ADULT ENEMA* 118 ml bottle PR ONE (18:30)
--- NOTE | 2019-01-03 21:07 | PN ---
Progress Note - Progress Note Date of Service: 01/03/19 Note: Patient stable with q2 neuro checks for since admission around 1:00 am. Seen by neurosx. Per neurosx ok to transfer to tele, will start neuro checks q4 hr
--- NOTE | 2019-01-03 23:58 | CONS ---
NEUROLOGICAL CONSULTATION: DATE OF CONSULT: 01/03/19 PATIENT OF: Dr. Dumont and Dr. Garcia. HISTORY OF PRESENT ILLNESS: This is an 88-year-old right-handed man who yesterday afternoon developed right hand numbness and clumsiness. His face was not affected and he was therefore brought into the ER. He had trouble giving his cat thyroid medicine in a syringe and that is part of how he knew his hand was affected. He is right-handed. He had no speech problems. He has no numbness in his face or legs. There is no weakness elsewhere. He presented to the ER where a CT scan showed bilateral subdural hematomas with both acute and nonacute blood products and he has AFib and is on Eliquis. Dr. Garcia was consulted and began him on Keppra, but after talking with Dr. Dumont, they want my opinion to know whether his numbness and clumsiness was a seizure and whether an EEG was necessary. His symptoms have resolved since this morning. He has had no abnormal movements , no starring spells or unresponsiveness. He has had no prior history of seizures. PAST MEDICAL HISTORY: He has past history of atrial fibrillation; benign prostatic hypertrophy, status post TURP; hypertension; herniorrhaphy; history of sternal fracture. MEDICATIONS: Include: 1. Eliquis 5 mg b.i.d. now discontinued. 2. Amlodipine 10 mg. 3. Multivitamin folic acid. He is now on Keppra. ALLERGIES: He is allergic to CIPRO, CLINDAMYCIN, PENICILLIN, IBUPROFEN. FAMILY HISTORY: Noncontributory. Lives alone with his 4 cats and he is independent with his activities of daily living and he still drives. REVIEW OF SYSTEMS: Negative in all 14 spheres other than the HPI. PHYSICAL EXAM: Temperature 99, pulse 55, respirations 19, blood pressure 148/ 73. He is alert and oriented with normal speech and comprehension. Cranial nerves II through XII were intact other than his nasolabial fold. The right was flattened compared to the left to a subtle degree. His facies was otherwise symmetric. I asked his long-term friend whether she noticed it and she said she did, but she is not sure; she thinks his face is unchanged without any recent changes in the past. He had a negative pronator drift. Strength is 5 /5. Sensation is intact to light touch. Reflexes were 1 and equal, downgoing toes. Chest: Clear. Cardiovascular: Irregular rate and rhythm. Abdomen: Soft with positive bowel sounds. DIAGNOSTIC STUDIES/LAB DATA: Labs include normal CBC other than hematocrit of 38. INR 1.85, PTT 35. CMP abnormal for bili of 1.1, sodium of 132, glucose of 116. I reviewed his CT scan which showed the subdurals as described. I discussed with the patient and Dr. Dumont that clumsiness and numbness in his hand lasting many hours including the next morning when he awoke without any other symptoms is not going to be seizures. He does not need an EEG. Dr. Garcia placed him on Keppra and this is reasonable, but he does not need to be on this more than a few months and Dr. Garcia can decide when he wants to take him off. I defer to Dr. Garcia in terms of the management of this subdural hematomas. Thank you for sharing his case. [id number]/[facility] #: [id number] BEN
[2019-01-04] MEDS: amLODIPine TAB* 5 MG PO SCH (08:01)
[2019-01-04] MEDS: Folic Acid TAB* 1 MG PO SCH (08:01)
[2019-01-04] MEDS: levETIRAcetam TAB* 500 MG PO SCH ×2 (08:01→21:11)
--- NOTE | 2019-01-04 18:27 | PN ---
Subjective Date of Service: 01/04/19 Interval History: HOSPITALIST PROGRESS NOTE Patient seen and examined at bedside. Care reviewed and d/w Sri Cardenas RN. He continues to have right hand clumsiness on and off today. Resolved at this time. Offers no other complaints. Family History: Unchanged from Admission Social History: Unchanged from Admission Past Medical History: Unchanged from Admission Objective Active Medications: Acetaminophen (Tylenol Tab*) 650 mg PO Q4H PRN PRN Reason: FEVER/PAIN Al Hydrox/Mg Hydrox/Simethicone (Maalox Plus*) 30 ml PO Q6H PRN PRN Reason: INDIGESTION Amlodipine Besylate (Norvasc Tab*) 10 mg PO DAILY [facility] Last Admin: 01/04/19 08:01 Dose: 10 mg Folic Acid (Folvite Tab*) 1 mg PO QAM [facility] Last Admin: 01/04/19 08:01 Dose: 1 mg Hydralazine HCl (Apresoline Iv*) 5 mg IV SLOW PU Q6H PRN PRN Reason: BLOOD PRESSURE Levetiracetam (Keppra Tab*) 500 mg PO BID [facility] Last Admin: 01/04/19 08:01 Dose: 500 mg Ondansetron HCl (Zofran Inj*) 4 mg IV Q4H PRN PRN Reason: NAUSEA/VOMITING Vital Signs - 8 hr 01/04/19 01/04/19 11:30 15:30 Temperature 97.4 F 99.5 F Pulse Rate 60 54 Respiratory 18 18 Rate Blood Pressure 156/66 144/49 (mmHg) O2 Sat by Pulse 99 100 Oximetry Oxygen Devices in Use Now: None Appearance: Pleasant elderly gentleman sitting up in bed in [facility]. Eyes: No Scleral Icterus Ears/Nose/Mouth/Throat: Mucous Membranes Moist Neck: Trachea Midline Respiratory: Symmetrical Chest Expansion and Respiratory Effort, Clear to Auscultation Cardiovascular: - - Normal S1 and S2, irregularly irregular Neurological: Alert and Oriented x 3, NL Muscle Strength and Tone, - - Finger to nose WNL bilaterally. Result Diagrams: 01/03/19 05:37 01/03/19 05:37 Assess/Plan/Problems-Billing Assessment: Mr Dow is an 88yo M with PMH of Afib on AC, BPH s/p TURP, HTN, fracture sternum, who sustained a fall 3 weeks ago; presented to ED with right hand clumsiness, found to have SDH. - Patient Problems (1) SDH (subdural hematoma) Comment: - Initial CT brain showed bilateral mixed density SDH measuring 1.3cm L and 0.9cm R, balanced mass effect with no significant shift. F/u CT is stable x 2. - Neurosurgery input appreciated - case d/w Dr Garcia - patient will eventually need drainage, but needs to wait for Apixaban clearance - 5-7 days. Will probably need rehab after surgery - may be a good PMRU candidate. - Continue Keppra. - Neurology input appreciated. - Continue neurochecks and monitor in ICU. (2) HTN (hypertension) Comment: - Continue amlodipine. (3) Atrial fibrillation Comment: - Rate is controlled. - Apixaban discontinued in the setting of SDH. (4) DVT prophylaxis Comment: - SCDs. Status and Disposition: Inpatient.
--- NOTE | 2019-01-04 19:24 | PN ---
Progress Note - Progress Note Date of Service: 01/04/19 Note: Subjective: 88 y/o male with closed head injury x 1 month, has bifrontal frontal SDH that has been stable on CT. Today patient reports denies head ache, nausea or vomiting. He also denies issues with loss of strength in extremities. Also denies issues with balance or gait disturbances. Overall patient is feeling better and has no complaints at this time. Objective: Vital Signs - 12 hr Temp Pulse Resp BP Pulse Ox 01/04/19 15:30 99.5 F 54 18 144/49 100 01/04/19 11:30 97.4 F 60 18 156/66 99 01/04/19 08:00 18 01/04/19 07:54 98.0 F 66 18 156/51 100 General: Patient laying bed comfortable, NAD, mood pleasant Neuro: GCS 15. A&O X 4, CN II - XII grossly intact. Pupils equal constrict bilateral, Sensation intact throughout with light touch. Motor strength 5/5 in all extremity, negative Babinski's, Negative Romberg. Assesment: 88 y/o male with closed head injury sustained form mechanical fall, resulting in bifrontal SDH. Patient is neurologically intact with no focal deficits. Imaging completed today is unchanged from previous image Plan: 1) Will continue to observe patient, considering possible surgical intervention. 2) Pain control as needed.
--- NOTE | 2019-01-05 02:47 | CONS ---
CONSULTATION NOTE: DATE OF CONSULT: 01/03/19 HISTORY OF PRESENT ILLNESS: The patient is a very pleasant 88-year-old gentleman with a past medical history of atrial fibrillation, who is on Eliquis , who presented to the emergency room with loss of dexterity of the right upper extremity. The patient has a history of fall approximately 3 weeks ago while he was carrying groceries. At that time, he did not have loss of consciousness or any other symptoms. He noticed the day prior to admission that he was unable to use his right hand as he used to. He was not able to give the medication to his catheter with the syringe and had difficulty eating. The patient was brought to the emergency room and CT scan of the brain revealed bilateral chronic subdural hematomas with an acute component without evidence of midline shift or significant mass effect. Requested to see the patient by Dr. Jean in the emergency room. The patient was seen in the ICU on the morning of 01/03/19. The patient reports that he has no headache, he has no nausea or vomiting, denies any seizures. Denies any difficulty with his dexterity. He denies any weakness, numbness, or tingling of his extremities. He also ambulates without difficulties. He denies any urinary or GI incontinence. The patient denies any neck or back pain. PAST MEDICAL HISTORY: Atrial fibrillation; BPH, status post TURP; hypertension ; hernia repair; sternal fracture. MEDICATIONS: The patient is on: 1. Eliquis. 2. Amlodipine. 3. Multivitamin. 4. Folic acid. ALLERGIES: CIPRO, CLINDAMYCIN, PENICILLIN, IBUPROFEN. FAMILY HISTORY: Noncontributory. SOCIAL HISTORY: Tobacco negative, alcohol negative, recreational drug use negative. The patient is retired. He lives at home with , his 4 cats. PHYSICAL EXAM: On physical examination, the patient is not in acute distress. He is awake, alert, oriented x3. His pupils are equal and reactive to light and accommodation. Motor: Shows 5/5 in all extremities. No pronator drift. Sensory grossly intact to light touch. Deep tendon reflexes +1 bilaterally. No clonus. No Babinski. Grzegorz's negative. Straight-leg raise negative in the supine position. The patient has no tenderness to palpation of the cervical , thoracic or lumbar spine. He has free range of motion of the cervical spine. 1+ pedal pulse present bilateral. DIAGNOSTIC STUDIES: The patient had a CT scan of the brain revealing bilateral chronic subdural hematomas with acute components without significant mass effect or midline shift. ASSESSMENT: The patient is a very pleasant 88-year-old gentleman with a history of atrial fibrillation, on Eliquis with a remote fall and CT scan findings consistent with bilateral acute on chronic subdural hematoma. PLAN: The patient at this point is doing quite well neurologically. He has no dysmetria. He has no difficulty with his right upper extremity dexterity, and repeat CT scan this morning was stable. We have recommended the patient to be on Keppra for 7 days and holding on Eliquis. The patient was given tranexamic acid by Dr. Jean in the emergency room. We recommended holding of Eliquis. The patient may be a candidate for drainage of a subdural hematoma via bur holes at a later point provided that he remains neurologically stable. We will repeat CT scan of the brain in the morning and monitor his vital signs and neuro checks. Thank you for allowing us to participate in the care of this patient. Please do not hesitate to contact our office in case you have any further questions or concerns regarding the care of this patient. ADDENDUM: Discussed with the patient the possibility of surgical intervention, and the patient would not like to consider surgical intervention at this time as he feels that he is doing quite well. [id number]/[facility]PS #: [id number] BEN
[2019-01-05] MEDS: levETIRAcetam TAB* 500 MG PO SCH ×2 (08:36→21:20)
[2019-01-05] MEDS: amLODIPine TAB* 5 MG PO SCH (08:36)
[2019-01-05] MEDS: Folic Acid TAB* 1 MG PO SCH (08:36)
--- NOTE | 2019-01-05 18:01 | PN ---
Subjective Date of Service: 01/05/19 Interval History: Pt c/o no headache and weakness Family History: Unchanged from Admission Social History: Unchanged from Admission Past Medical History: Unchanged from Admission Objective Active Medications: Acetaminophen (Tylenol Tab*) 650 mg PO Q4H PRN PRN Reason: FEVER/PAIN Al Hydrox/Mg Hydrox/Simethicone (Maalox Plus*) 30 ml PO Q6H PRN PRN Reason: INDIGESTION Amlodipine Besylate (Norvasc Tab*) 10 mg PO DAILY [facility] Last Admin: 01/05/19 08:36 Dose: 10 mg Folic Acid (Folvite Tab*) 1 mg PO QAM [facility] Last Admin: 01/05/19 08:36 Dose: 1 mg Hydralazine HCl (Apresoline Iv*) 5 mg IV SLOW PU Q6H PRN PRN Reason: BLOOD PRESSURE Levetiracetam (Keppra Tab*) 500 mg PO BID [facility] Last Admin: 01/05/19 08:36 Dose: 500 mg Ondansetron HCl (Zofran Inj*) 4 mg IV Q4H PRN PRN Reason: NAUSEA/VOMITING Vital Signs - 8 hr 01/05/19 01/05/19 11:13 15:28 Temperature 97.9 F 97.9 F Pulse Rate 56 56 Respiratory 18 18 Rate Blood Pressure 145/64 136/55 (mmHg) O2 Sat by Pulse 98 99 Oximetry Oxygen Devices in Use Now: None Appearance: 88 yo M in nAD, AAOx3 Eyes: No Scleral Icterus, PERRLA Ears/Nose/Mouth/Throat: NL Teeth, Lips, Gums, Mucous Membranes Moist Neck: NL Appearance and Movements; NL JVP, Trachea Midline Respiratory: Symmetrical Chest Expansion and Respiratory Effort, Clear to Auscultation Cardiovascular: - - irregular Abdominal: NL Sounds; No Tenderness; No Distention, No Hepatosplenomegaly Lymphatic: No Cervical Adenopathy Extremities: No Edema, No Clubbing, Cyanosis Skin: No Rash or Ulcers, No Nodules or Sclerosis Neurological: Alert and Oriented x 3, NL Muscle Strength and Tone Result Diagrams: 01/03/19 05:37 01/03/19 05:37 Microbiology and Other Data: Microbiology 01/03/19 03:30 Nasal Screen MRSA (PCR) - Final Nasal Mrsa Not Detected Assess/Plan/Problems-Billing Assessment: Mr Dow is an 88yo M with PMH of Afib on AC, BPH s/p TURP, HTN, fracture sternum, who sustained a fall 3 weeks ago; presented to ED with right hand clumsiness, found to have SDH. - Patient Problems (1) SDH (subdural hematoma) Comment: - Initial CT brain showed bilateral mixed density SDH measuring 1.3cm L and 0.9cm R, balanced mass effect with no significant shift. F/u CT is stable x 2. - Neurosurgery input appreciated - case d/w Dr Garcia - patient will eventually need drainage, but needs to wait for Apixaban clearance - 5-7 days. Will probably need rehab after surgery - may be a good PMRU candidate. - Continue Keppra. - Neurology input appreciated. - Continue neurochecks Q4H (2) Atrial fibrillation Comment: - Rate is controlled. - Apixaban discontinued in the setting of SDH. (3) HTN (hypertension) Current Visit: Yes Status: Acute Code(s): I10 - ESSENTIAL (PRIMARY) HYPERTENSION SNOMED Code(s): 58683406 Comment: - Continue amlodipine. (4) DVT prophylaxis Comment: - SCDs. Status and Disposition: Inpatient.
--- NOTE | 2019-01-05 18:43 | PN ---
Progress Note - Progress Note Date of Service: 01/05/19 SOAP: Subjective: 88 y/o male with bilateral frontal SDH s/p closed head injury, no acute changes over night. Patient continues to be neurologically intact with no deficits. Continues to deny headaches, nausea or vomiting and able to ambulate with out difficulty. Objective: Vital Signs - 12 hr Temp Pulse Resp BP Pulse Ox 01/05/19 15:28 97.9 F 56 18 136/55 99 01/05/19 11:13 97.9 F 56 18 145/64 98 01/05/19 07:58 16 01/05/19 07:30 97.6 F 56 17 142/55 98 Assessment: [] Plan: []
[2019-01-06] MEDS: levETIRAcetam TAB* 500 MG PO SCH ×2 (08:01→20:05)
[2019-01-06] MEDS: amLODIPine TAB* 5 MG PO SCH (08:01)
[2019-01-06] MEDS: Folic Acid TAB* 1 MG PO SCH (08:01)
--- NOTE | 2019-01-06 12:33 | PN ---
Subjective Date of Service: 01/06/19 Interval History: Pt feels OK. noted to be "clumsy occasionally" in R hand, denies headache Had an episode of night sweats and was noted to have superficial phlebitis in left forearm related to IV that was removed. T max 100.1 Family History: Unchanged from Admission Social History: Unchanged from Admission Past Medical History: Unchanged from Admission Objective Active Medications: Acetaminophen (Tylenol Tab*) 650 mg PO Q4H PRN PRN Reason: FEVER/PAIN Last Admin: 01/05/19 21:20 Dose: 650 mg Al Hydrox/Mg Hydrox/Simethicone (Maalox Plus*) 30 ml PO Q6H PRN PRN Reason: INDIGESTION Amlodipine Besylate (Norvasc Tab*) 10 mg PO DAILY [facility] Last Admin: 01/06/19 08:01 Dose: 10 mg Folic Acid (Folvite Tab*) 1 mg PO QAM [facility] Last Admin: 01/06/19 08:01 Dose: 1 mg Hydralazine HCl (Apresoline Iv*) 5 mg IV SLOW PU Q6H PRN PRN Reason: BLOOD PRESSURE Levetiracetam (Keppra Tab*) 500 mg PO BID [facility] Last Admin: 01/06/19 08:01 Dose: 500 mg Ondansetron HCl (Zofran Inj*) 4 mg IV Q4H PRN PRN Reason: NAUSEA/VOMITING Vital Signs - 8 hr 01/06/19 08:00 Temperature 97.8 F Pulse Rate 58 Respiratory 20 Rate Blood Pressure 154/72 (mmHg) O2 Sat by Pulse 100 Oximetry Oxygen Devices in Use Now: None Appearance: 88 yo M in nAD, aAOx3 Eyes: No Scleral Icterus, PERRLA Ears/Nose/Mouth/Throat: NL Teeth, Lips, Gums, Mucous Membranes Moist Neck: NL Appearance and Movements; NL JVP, Trachea Midline Respiratory: Symmetrical Chest Expansion and Respiratory Effort, Clear to Auscultation Cardiovascular: - - irregular Abdominal: NL Sounds; No Tenderness; No Distention Lymphatic: No Cervical Adenopathy Extremities: No Edema Skin: No Nodules or Sclerosis, - - left forearm -medial aspect-mild induration with erythema at 4 cm in diam -no streaking, no increased warmth Neurological: Alert and Oriented x 3, - - R finger to nose mildly dysmetric on R , otherwise motor 5/5 b/l , speech clear Result Diagrams: 01/03/19 05:37 01/03/19 05:37 Microbiology and Other Data: Microbiology 01/03/19 03:30 Nasal Screen MRSA (PCR) - Final Nasal Mrsa Not Detected Assess/Plan/Problems-Billing Assessment: Mr Dow is an 88yo M with PMH of Afib on AC, BPH s/p TURP, HTN, fracture sternum, who sustained a fall 3 weeks ago; presented to ED with right hand clumsiness, found to have SDH. - Patient Problems (1) SDH (subdural hematoma) Comment: - Initial CT brain showed bilateral mixed density SDH measuring 1.3cm L and 0.9cm R, balanced mass effect with no significant shift. F/u CT is stable x 2. - Neurosurgery input appreciated - case d/w Dr Garcia - patient will eventually need drainage, but needs to wait for Apixaban clearance - 5-7 days ( planned for 01/12/19). Will probably need rehab after surgery - may be a good PMRU candidate. - Continue Keppra. - Neurology input appreciated. - Continue neurochecks Q4H (2) Atrial fibrillation Comment: - Rate is controlled. - Apixaban discontinued in the setting of SDH. (3) HTN (hypertension) Comment: - Continue amlodipine. (4) Superficial phlebitis of arm Comment: IV removed, no evidence of cellulitis, cont to monitor (5) DVT prophylaxis Comment: SCD's Status and Disposition: Inpatient.
--- NOTE | 2019-01-06 19:46 | PN ---
Progress Note - Progress Note Date of Service: 01/06/19 SOAP: Subjective: 88 y/o male with bi frontal SDH, patient continues to be able with no acute changes. He still denies headaches, nausea or vomiting. Also denies issues with balance or gait disturbances. Patient reports possible phlebitis on left forearm from a IV. Objective: Physical Exam unchanged. Assessment: 88 y/o male with bifrontal SDH, neurologically intact with out focal deficits. Plan: Continue to prepare for surgical intervention on . Patient need medical clearance for surgery.
[2019-01-07] MEDS: Benzocaine/Menthol LOZ* 1 LOZENGE MT PRN ×2 (04:21→20:07)
[2019-01-07 05:25] LABS: Hematocrit 34 % (42-52); Hemoglobin 11.9 g/dL (14.0-18.0); Mean Corpuscular HGB Conc 35 g/dL (31-36); Mean Corpuscular Hemoglobin 31 pg (27-31); Mean Corpuscular Volume 88 fL (80-94); Mean Platelet Volume 7.7 fL (7.4-10.4); Platelet Count 207 10^3/uL (150-450); Red Blood Count 3.86 10^6 /uL (4.18-5.48); Red Cell Distribution Width 14 % (10-15); White Blood Count 6.7 10^3/uL (3.5-10.8)
[2019-01-07 05:43] LABS: BUN/Creatinine Ratio 19.8 (8-20); Calcium 8.5 mg/dL (8.6-10.3); EGFR African American 95.1 (>60); EGFR Non-African American 78.6 (>60); Potassium 3.5 mmol/L (3.5-5.0)
[2019-01-07] MEDS: levETIRAcetam TAB* 500 MG PO SCH ×2 (08:04→20:08)
[2019-01-07] MEDS: amLODIPine TAB* 5 MG PO SCH (08:04)
[2019-01-07] MEDS: Folic Acid TAB* 1 MG PO SCH (08:04)
[2019-01-07] MEDS ORDERED: Senna TAB PO PRN (14:51)
[2019-01-07] MEDS ORDERED: Polyethylene Glycol 3350* 17 GM PACKET PO PRN (14:51)
[2019-01-07] MEDS ORDERED: Magnesium Hydroxide LIQ* 30 ML UDC PO PRN (14:51)
--- NOTE | 2019-01-07 15:11 | PN ---
Subjective Date of Service: 01/07/19 Interval History: Pt feels well. The R hand still get occasionally "clumsy". He is able to use it to hold utensils, but occasionally drops a fork. Family History: Unchanged from Admission Social History: Unchanged from Admission Past Medical History: Unchanged from Admission Objective Active Medications: Acetaminophen (Tylenol Tab*) 650 mg PO Q4H PRN PRN Reason: FEVER/PAIN Last Admin: 01/05/19 21:20 Dose: 650 mg Al Hydrox/Mg Hydrox/Simethicone (Maalox Plus*) 30 ml PO Q6H PRN PRN Reason: INDIGESTION Last Admin: 01/07/19 14:11 Dose: 30 ml Amlodipine Besylate (Norvasc Tab*) 10 mg PO DAILY [facility] Last Admin: 01/07/19 08:04 Dose: 10 mg Docusate Sodium (Colace Cap*) 100 mg PO BID [facility] Folic Acid (Folvite Tab*) 1 mg PO QAM [facility] Last Admin: 01/07/19 08:04 Dose: 1 mg Hydralazine HCl (Apresoline Iv*) 5 mg IV SLOW PU Q6H PRN PRN Reason: BLOOD PRESSURE Levetiracetam (Keppra Tab*) 500 mg PO BID [facility] Last Admin: 01/07/19 08:04 Dose: 500 mg Magnesium Hydroxide (Milk Of Magnesia Liq*) 30 ml PO BID [facility] Magnesium Hydroxide (Milk Of Magnesia Liq*) 30 ml PO BID PRN PRN Reason: CONSTIPATION Ondansetron HCl (Zofran Inj*) 4 mg IV Q4H PRN PRN Reason: NAUSEA/VOMITING Polyethylene Glycol/Electrolytes (Miralax*) 17 gm PO DAILY PRN PRN Reason: CONSTIPATION Senna (Senokot Tab*) 1 tab PO BEDTIME PRN PRN Reason: CONSTIPATION Throat Lozenges (Chloraseptic Ally*) 1 ally MT Q6H PRN PRN Reason: SORE THROAT Last Admin: 01/07/19 04:21 Dose: 1 ally Vital Signs - 8 hr 01/07/19 01/07/19 01/07/19 07:28 07:44 11:31 Temperature 98.1 F 98.8 F Pulse Rate 55 51 Respiratory 20 18 19 Rate Blood Pressure 140/65 135/59 (mmHg) O2 Sat by Pulse 99 99 Oximetry Oxygen Devices in Use Now: None Appearance: 88 yo M in nAD, aAOx3 Eyes: No Scleral Icterus, PERRLA Ears/Nose/Mouth/Throat: NL Teeth, Lips, Gums, Mucous Membranes Moist Neck: NL Appearance and Movements; NL JVP, Trachea Midline Respiratory: Symmetrical Chest Expansion and Respiratory Effort, Clear to Auscultation Cardiovascular: - - irregular Abdominal: NL Sounds; No Tenderness; No Distention, No Hepatosplenomegaly Lymphatic: No Cervical Adenopathy Extremities: No Edema, No Clubbing, Cyanosis Skin: No Nodules or Sclerosis Neurological: Alert and Oriented x 3, - - finger to nose minimally dysmetric on R Result Diagrams: 01/07/19 04:57 01/07/19 04:57 Microbiology and Other Data: Microbiology 01/03/19 03:30 Nasal Screen MRSA (PCR) - Final Nasal Mrsa Not Detected Assess/Plan/Problems-Billing Assessment: Mr Dow is an 88yo M with PMH of Afib on AC, BPH s/p TURP, HTN, fracture sternum, who sustained a fall 3 weeks ago; presented to ED with right hand clumsiness, found to have SDH. - Patient Problems (1) SDH (subdural hematoma) Comment: - Initial CT brain showed bilateral mixed density SDH measuring 1.3cm L and 0.9cm R, balanced mass effect with no significant shift. F/u CT is stable x 2. - Neurosurgery input appreciated - case d/w Dr Garcia - patient will eventually need drainage, but needs to wait for Apixaban clearance - 5-7 days ( planned for 01/12/19). Will probably need rehab after surgery - may be a good PMRU candidate. - Continue Keroelra. - Neurology input appreciated. - Continue neurochecks Q4H Pt's RCRI risk score is 1 giving him 6% risk or serious periop complications. His exercise tolerance is 4METS, last stress tests 07/2017-no ischemia. He is an appropiate candidate for the anticipated surgery. (2) Atrial fibrillation Comment: - Rate is controlled. - Apixaban discontinued in the setting of SDH. (3) HTN (hypertension) Comment: - Continue amlodipine. (4) Superficial phlebitis of arm Comment: IV removed, no evidence of cellulitis, resolved . (5) DVT prophylaxis Comment: SCD's Status and Disposition: Inpatient.
[2019-01-07] MEDS: Magnesium Hydroxide LIQ* 30 ML UDC PO SCH (20:08)
[2019-01-07] MEDS ORDERED: hydrALAZINE IV* 20 MG/ML VIAL IV SLOW PU ONE (21:22)
[2019-01-07] MEDS ORDERED: Melatonin 3 MG TAB PO PRN (21:22)
[2019-01-07] MEDS ORDERED: ALPRAZolam TAB* 0.25 MG PO PRN (21:23)
[2019-01-07] MEDS: Docusate CAP* 100 MG PO SCH (21:49)
[2019-01-08] MEDS ORDERED: Sodium Phosphate ADULT ENEMA* 118 ml bottle PR PRN (08:24)
[2019-01-08] MEDS ORDERED: Benzocaine/Menthol LOZ* 1 LOZENGE MT PRN (08:24)
--- NOTE | 2019-01-08 08:30 | PN ---
Subjective Date of Service: 01/08/19 Interval History: pt is upset today and wants to leave: -he has not had "a wink of sleep" since admission and his neighbour keeps him awake at night --started developing sore throat and cough -had not had a BM for several days, denies abd pain, afraid to straining due to SDH, requests an enema, but refused laxatives last night We had a long discussion and we are going to: -find pt another room -do enema and encouraged pt to use prescribed laxatives -get CT dutch to f/u SDH and await neurosurgery consult today with son Juan Carlos and pt -start chloraseptic lozenge for sore throat Family History: Unchanged from Admission Social History: Unchanged from Admission Past Medical History: Unchanged from Admission Objective Active Medications: Acetaminophen (Tylenol Tab*) 650 mg PO Q4H PRN PRN Reason: FEVER/PAIN Last Admin: 01/05/19 21:20 Dose: 650 mg Al Hydrox/Mg Hydrox/Simethicone (Maalox Plus*) 30 ml PO Q6H PRN PRN Reason: INDIGESTION Last Admin: 01/07/19 14:11 Dose: 30 ml Alprazolam (Xanax Tab*) 0.25 mg PO BID PRN PRN Reason: ANXIETY Amlodipine Besylate (Norvasc Tab*) 10 mg PO DAILY [facility] Last Admin: 01/07/19 08:04 Dose: 10 mg Docusate Sodium (Colace Cap*) 100 mg PO BID [facility] Last Admin: 01/07/19 21:49 Dose: 100 mg Folic Acid (Folvite Tab*) 1 mg PO QAM [facility] Last Admin: 01/07/19 08:04 Dose: 1 mg Hydralazine HCl (Apresoline Iv*) 5 mg IV SLOW PU Q6H PRN PRN Reason: BLOOD PRESSURE Last Admin: 01/07/19 20:02 Dose: 5 mg Levetiracetam (Keppra Tab*) 500 mg PO BID [facility] Last Admin: 01/07/19 20:08 Dose: 500 mg Magnesium Hydroxide (Milk Of Magnesia Liq*) 30 ml PO BID [facility] Last Admin: 01/07/19 20:08 Dose: 30 ml Magnesium Hydroxide (Milk Of Magnesia Liq*) 30 ml PO BID PRN PRN Reason: CONSTIPATION Melatonin (Melatonin) 3 mg PO BEDTIME PRN PRN Reason: INSOMNIA Last Admin: 01/07/19 21:47 Dose: 3 mg Ondansetron HCl (Zofran Inj*) 4 mg IV Q4H PRN PRN Reason: NAUSEA/VOMITING Polyethylene Glycol/Electrolytes (Miralax*) 17 gm PO DAILY PRN PRN Reason: CONSTIPATION Last Admin: 01/07/19 15:55 Dose: 17 gm Senna (Senokot Tab*) 1 tab PO BEDTIME PRN PRN Reason: CONSTIPATION Oxygen Devices in Use Now: None Appearance: 88 yo M in nAD, aAOx3 Eyes: No Scleral Icterus, PERRLA Ears/Nose/Mouth/Throat: NL Teeth, Lips, Gums, Mucous Membranes Moist Neck: NL Appearance and Movements; NL JVP, Trachea Midline Respiratory: Symmetrical Chest Expansion and Respiratory Effort, Clear to Auscultation Cardiovascular: NL Sounds; No Murmurs; No JVD, - - irregular Abdominal: NL Sounds; No Tenderness; No Distention Lymphatic: No Cervical Adenopathy Extremities: No Edema, No Clubbing, Cyanosis Skin: No Rash or Ulcers, No Nodules or Sclerosis Neurological: Alert and Oriented x 3, NL Muscle Strength and Tone, - - mildly dysmetric on R hand to nose, speech clear, CN -intact Result Diagrams: 01/07/19 04:57 01/07/19 04:57 Microbiology and Other Data: Microbiology 01/03/19 03:30 Nasal Screen MRSA (PCR) - Final Nasal Mrsa Not Detected Assess/Plan/Problems-Billing Assessment: Mr Dow is an 88yo M with PMH of Afib on AC, BPH s/p TURP, HTN, fracture sternum, who sustained a fall 3 weeks ago; presented to ED with right hand clumsiness, found to have SDH. - Patient Problems (1) SDH (subdural hematoma) Comment: - Initial CT brain showed bilateral mixed density SDH measuring 1.3cm L and 0.9cm R, balanced mass effect with no significant shift. F/u CT is stable x 2. - Neurosurgery input appreciated - case d/w Dr Garcia - patient will eventually need drainage, but needs to wait for Apixaban clearance - 5-7 days ( planned for 01/12/19). Will probably need rehab after surgery - may be a good PMRU candidate. - Continue Keppra. - Neurology input appreciated. - Continue neurochecks Q4H Pt's RCRI risk score is 1 giving him 6% risk or serious periop complications. His exercise tolerance is 4METS, last stress tests 07/2017-no ischemia. He is an appropiate candidate for the anticipated surgery. -today pt will consult with neurosurgery and his son Juan Carlos the plan for surgery (2) Atrial fibrillation Comment: - Rate is controlled. - Apixaban discontinued in the setting of SDH. (3) HTN (hypertension) Comment: - Continue amlodipine. (4) Superficial phlebitis of arm Comment: IV removed, no evidence of cellulitis, resolved . (5) Sore throat Comment: no erythema on inspection cont chloraseptic lozenges sputum cx ordered (6) Constipation Comment: enema and laxatives ordered (7) DVT prophylaxis Comment: SCD's Status and Disposition: Inpatient.
[2019-01-08] MEDS: Docusate CAP* 100 MG PO SCH (08:32)
[2019-01-08] MEDS: Folic Acid TAB* 1 MG PO SCH (08:32)
[2019-01-08] MEDS: amLODIPine TAB* 5 MG PO SCH (08:32)
[2019-01-08] MEDS: Magnesium Hydroxide LIQ* 30 ML UDC PO SCH (08:32)
[2019-01-08] MEDS: levETIRAcetam TAB* 500 MG PO SCH (08:32)
--- NOTE | 2019-01-08 10:50 | PN ---
Progress Note - Progress Note Date of Service: 01/08/19 SOAP: Subjective: [] No events ON, Patient was agitated by his neighbour patient. Patient was transferred to a private room. Tolerates po well, Ambulates, Voids. No BM yet. Patient's son Juan Carlos at the bedside. Objective: []VSS, Afebrile AAOx3, RADHA, CN II-XII grossly intact. Motor 5/5 no pronator drift Sensory grossly intact to light touch. Assessment: []88 yom Kristin SDH on qu Plan: []Monitor VS, Neurochecks. CT today stable Discussed in extend with patient and his son regarding patient's condition and possible treatment options. Same were discussed with patient's son on over the phone. Because of the presence of kristin SDH , mild midline shift and prior symptoms, surgical intervention was offered to the patient in the forms of bilateral edgar holes with possibility of extension to craniotomies. Patient is scheduled to have surgery on . Patient was kindly cleared for surgery by IM. Patient understands other treatment options including observation and serial CTs. Patient also understands risks and benefits of surgical intervention with risks include but not limited to bleeding, infection, risk of injury to adjacent structures, coma, paralysis, , need for additional procedures, anesthesia risks, risk of re-accumulation of hematomas, prolonged ICU stay, inability to remove hematomas, SZ. Patient would like to proceed with surgery at this point. Because of the distress he feels min the hospital he would liek to go home and return for the operation. I expalined to the patient and his son the possible risks of this option including SZ, additional bleeding, falls, additional injuries requiring emergency surgery and may result in paralysis, or other disabling conditions. Patient understands the risks, including the risks associated with discontinuation of the anticoagulation. He will talk with his son and make a final decision. If patient understand and accepts the risks associated with him going home despite our advice to stay in the hospital until the surgery, will be happy to see patient in the office tomorrow and plan for the surgery if patient wishes. Patient will discuss also with his brother who is retired foreign service teacher regarding his options before making the final decision. We will plan on repeating CT on . Appreciate IM care. Glenny Garcia MD
[2019-01-08 12:53] VITALS: BP 156/64
--- NOTE | 2019-01-08 13:06 | DS ---
CC: Dr. Mcneil; Dr. Garcia * DISCHARGE SUMMARY: DATE OF ADMISSION: 01/03/19 DATE OF DISCHARGE: 01/08/19, to home. PRIMARY CARE PROVIDER: Dr. Mcneil. DISCHARGE DIAGNOSIS: Subdural hematoma, likely posttraumatic. SECONDARY DIAGNOSES: 1. Chronic atrial fibrillation. Up to this hospital stay, the patient used to be anticoagulated with Eliquis. 2. History of benign prostatic hyperplasia, status post transurethral resection of the prostate. 3. History of hypertension. 4. History of hernia repair. 5. History of sternal fracture after a fall in June 2018. MEDICATIONS AT DISCHARGE: Include: 1. Keppra 500 mg b.i.d. for a total of 5 days. 2. Norvasc 10 mg daily. 3. Folic acid 1 mg daily. 4. Multivitamin 1 tablet daily. LABORATORY DATA AND STUDIES PERFORMED DURING THE HOSPITAL STAY: Included: On , white blood cell count of 6.7, hemoglobin 11.9, hematocrit of 34, and platelets of 207. Sodium was 134, potassium 3.5, chloride 103, carbon dioxide 25, BUN 18, creatinine 0.91. Last brain CT obtained on 01/08/19, impression: "Mixed attenuation bilateral subdural hematoma is not significantly changed from the most recent CT of the brain. There was a slight degree of right to left midline shift of the falx measuring less than 4 mm." CONSULTATIONS DURING THE HOSPITAL STAY: Included Dr. Garcia from Neurosurgery. HOSPITALIZATION COURSE: Mr. Papito Dow is an 88-year-old male who had been on Eliquis for his chronic atrial fibrillation and who presented to the hospital on 01/03/19. He stated that he noted that his right hand was somewhat clumsy occasionally. The patient stated that he remembered falling and hitting his head on stairs of his home a month prior. He had been on Eliquis continuously until the day of admission. He was noted to have bilateral subdural hematomas on his right, almost likely dysmetric on evaluation. Otherwise, he had no other neuro deficits. He was evaluated by Dr. Garcia. Due to the fact that the patient was taking Eliquis up to the day of admission, Dr. Garcia recommended for the patient to be 5 to 7 days off anticoagulant prior to planned for edgar hole surgery. The patient continued to be observed with neuro checks every 4 hours until Wednesday, on 01/08/19. After recurrent discussions with Dr. Garcia, at this point the patient requested to be discharged home. Please also refer to Dr. Garcia' notes. But shortly, Dr. Garcia informed the patient that the recommendation is for the patient to stay in the hospital until 01/12/19 when edgar hole surgery can be performed. The risk of noncomplying with that is worsening of subdural hematoma and the worst case scenario, . The patient understands the risk, but he wishes to go home with his son. He is planning to follow up with Dr. Garcia tomorrow in the office for his scheduled edgar hole surgery on 01/12/19 as outpatient. The patient is going to be discharged home under the care of his son, Juan Carlos. The patient is recommended not to drive until cleared by Neurosurgery. His anticoagulation is held and I suspect it may be indefinitely. For physical examination at the time of discharge, please see the progress notes , but shortly, apart from slight dysmetria on [id number] on the right side, the patient has no other focal findings or deficits. CONDITION AT DISCHARGE: Stable. DISPOSITION: Discharge to home. Please note that this is a short summary of the patient's hospitalization. Please refer to further medical records for details. TIME SPENT: Approximately 40 minutes was spent on the patient's discharge. [id number]/CPS #: [id number]
== END 2019-01-08 12:45 | disposition home or self-care (01) | DRG 83 ==
LOC: ED 19:46 → ICU 01-03 01:17 → OBSVTOIN 01-03 14:00 → MEDTELE 01-03 22:27
PROVIDERS: ADMIT Pediatrics; ATTEND Internal Medicine
DX: S06.5X9A Traumatic subdural hemorrhage with loss of consciousness of unspecified duration, initial encounter (principal); T80.1XXA Vascular complications following infusion, transfusion and therapeutic injection, initial encounter; I10 Essential (primary) hypertension; I80.8 Phlebitis and thrombophlebitis of other sites; N40.0 Benign prostatic hyperplasia without lower urinary tract symptoms; K59.00 Constipation, unspecified; I48.2 Chronic atrial fibrillation; Z66 Do not resuscitate; I45.10 Unspecified right bundle-branch block; J02.9 Acute pharyngitis, unspecified; W18.30XA Fall on same level, unspecified, initial encounter; Y92.096 Garden or yard of other non-institutional residence as the place of occurrence of the external cause; Z79.01 Long term (current) use of anticoagulants; Z79.899 Other long term (current) drug therapy; Z88.6 Allergy status to analgesic agent; Z88.1 Allergy status to other antibiotic agents; Z88.0 Allergy status to penicillin; Z88.8 Allergy status to other drugs, medicaments and biological substances
CPT/HCPCS: 36415; 70450; 80048; 80053; 81003; 81015; 83605; 84484; 85025; 85027; 85610; 85730; 87086; 87641; 93005; 97530; 99285; A9270-GY; G8978-GP-CJ; G8979-GP-CI; G8987-GO-CI; G8988-GO-CH; J0360; J1953

== ENCOUNTER 2019-01-12 09:10 | Inpatient (IN) | payer MEDICARE, BC ==
[~2019-01-12 09:10] MED LIST changes: -Buffered Lidocaine 0.9% SYRIN* 5 ML/SYR SYRINGE INTRADERM ONE; +Buffered Lidocaine 1% SYRIN* 1 ML/SYRINGE INTRADERM ONE; +Famotidine IV* 10 MG/ML 2 ML (20 mg) IV ONE; +Lactated Ringers 1000 ML Bag* 1,000 ML IV SCH; +Vancomycin(*) 1,500 MG in NS 0.9% 250 ML* 250 ML IVPB SCH
--- OUTSIDE RECORDS SUMMARY | 2019-01-12 09:15 | XMS REPORT | Continuity of Care Document ---
:1930 External Reference #:[id number] Author Name FlashRosa Care Team Providers Name Role Phone Paulo Mcneil MD Primary Care Physician Unavailable Payers Date Identification Numbers Payment Provider Subscriber Policy Number: [id number] Medicare Christina Zaidi PayID: [id number] [address] [place] [address] Policy Number: [id number] [facility] Christina Zaidi PayID: [id number] [address] [place] [address] Expires: 2009 Policy Number: [id number] [facility] Christina Gallegosmore PayID: [id number] [address],[place] [address] Problems Active Problems Provider Date Localized, primary osteoarthritis of the hand Mandy Rivera M.D. Onset: 05/20 Localized, primary osteoarthritis of the wrist Sin Ibanez M.D. Onset: Transient arthropathy of multiple sites Sin Ibanez M.D. Onset: 06/20/2015 Taking medication Sin Ibanez M.D. Onset: 06/20/2015 Rheumatoid arthritis of multiple joints Sin Ibanez M.D. Onset: 08/19/2015 Degenerative joint disease involving multiple Sin Ibanez M.D. Onset: joints Family History Date Family Member(s) Observation Comments Father due to Lung Cancer () - age 86 Mother due to Natural Causes () - age 92 First Brother Pacemaker Social History Type Date Description Comments Sex Unknown Lives With Alone Lives With Girlfriend Occupation Retired ETOH Use Denies alcohol use Tobacco Use Start: Unknown End: Patient is a former smoker Quit 1960 Unknown Recreational Drug Use Denies Drug Use Smoking Status Reviewed: 01/09/19 Patient is a former smoker Quit 1960 Exercise Type/Frequency Exercises regularly Allergies, Adverse Reactions, Alerts Active Allergies Reaction Severity Comments Date Ibuprofen GI upset 09/20/2014 Amoxicillin Anaphylaxis Severe 09/20/2014 Penicillin Anaphylaxis Severe 09/20/2014 Cipro muscle pain 08/16/2015 Medications Active Medications SIG Qnty Indications Ordering Provider Date Amlodipine Besylate 1 by mouth 90tabs I10 Alexandre Mora, 02/16/2018 10mg every day DO FACC Tablets Folic Acid 1 by mouth 90tabs M12.89 Sin Ibanez, 06/20/2015 1mg Tablets every day M.D. Eliquis 1 tab twice a MiduraPaulo MD 5mg Tablets day Centrum Silver 1 by mouth Unknown Tablets every day Levetiracetam 1 by mouth Unknown 500mg Tablets twice a day History Medications Hyoscyamine Sulfate Take three times a 90tabs I48.91 Alexandre Mora, - day DO FACC 03/11/2018 0.125mg Tablets Sub Verapamil HCL ER 1 by mouth every 90tabs Alexandre Mora, 07/08/2017 - day DO FACC 07/14/2017 120mg Tablets ER Hydrocodone-Acetamin 1 tab by mouth 8tabs Naomi Mortensen 06/22/2017 - ophen every 6 hours as SMITHA Singh 01/11/2018 5-325mg Tablets needed for pain Cipro one by nouth twice 14tabs Sin Ibanez, 08/16/2015 - 250mg Tablets daily for 7 days M.D. Unknown Methotrexate 4 tabs 1x per week 20tabs M12.89 Sin Ibanez, 06/20/2015 - 2.5mg M.D. Unknown Tablets Meloxicam 1 by mouth twice a 60tabs Casie 05/06/2015 - 7.5mg day as needed pain Jelly, Unknown Tablets M.D. Tramadol HCL 1-2 tabs by mouth 40tabs Mandy Rivera, 09/20/2014 - 50mg three times a day M.D. 12/04/2014 Tablets as needed pain Finasteride 1 daily ( On Hold Сергей Quiroz, - 5mg 9 days prior to MD 10/05/[address] Hodge) Triamterene/Hydrochl 1 by mouth every Unknown - orothiazide day 01/11/2018 37.5-25mg Tablets Tamsulosin HCL 1 by mouth every Unknown - 0.4mg day ( On hold 10/05/2018 Capsules prior to TURP procedure) [place] 3 1 daily Unknown - 1gm 01/11/2018 Vitamin D-3 1 by mouth every Unknown - 2000Units day 01/11/2018 Capsules Senior 1 tab by mouth Unknown - Multi-Vitamin/[place] every day as 01/11/2018 ls supplement Tablets Vitamin C 1 by mouth every Unknown - 1000mg day Unknown Tablets Multi Complete daily Unknown - Unknown Capsules Verapamil HCL ER 1 tab by mouth Unknown - every day 07/08/2017 240mg Tablets ER Triamterene/Hydrochl Nna [place] - orothiazide Unknown 37.5-25mg Tablets Aspirin Ec Unknown - 325 Unknown Triamterene-HCTZ As Directed Unknown - 06/18/2015 Flomax 1 by mouth every Unknown - 0.4mg Capsules day 07/07/2017 Verapamil HCL As directed Unknown - 06/17/2015 Medications Administered in Office Medication SIG Qnty Indications Ordering Provider Date Inj, Regadenoson, 0.1 MG Alexandre Mora, DO FAC 07/14/2017 Injection Technetium TC 99M Alexandre Mora, DO FACC 07/14/2017 Tetrofosmin, Per Unit Dose Up To 40 Millicuries Injection Immunizations CPT Code Status Date Vaccine Lot # [id number] Given 06/20/2015 Influenza Virus Vaccine, Quadrivalent, Split, [id number] Preservative Free Vital Signs Date Vital Result Comment 01/09/2019 1:04pm Height 68 inches 5'8" Weight 198.00 lb BP Systolic Sitting 160 mmHg BP Diastolic Sitting 88 mmHg Body Temperature 99.1 F Pain Level 2 BMI (Body Mass Index) 30.1 kg/m2 10/06/2018 1:44pm Height 67 inches 5'7" Weight 200.00 lb with shoes Heart Rate 58 /min BP Systolic Sitting 134 mmHg BP Diastolic Sitting 64 mmHg BP Systolic Standing 140 mmHg BP Diastolic Standing 64 mmHg Respiratory Rate 16 /min BMI (Body Mass Index) 31.3 kg/m2 Ejection Fraction 60-65% 03/11/2018 1:49pm Height 67 inches 5'7" Weight 187.00 lb Heart Rate 68 /min BP Systolic Sitting 148 mmHg Lue reg cuff BP Diastolic Sitting 68 mmHg Lue reg cuff BP Systolic Standing 154 mmHg Lue BP Diastolic Standing 74 mmHg Lue Respiratory Rate 16 /min BMI (Body Mass Index) 29.3 kg/m2 Ejection Fraction 60-65% 07/29/17 03/03/2018 10:54am Heart Rate 78 /min BP Systolic Sitting 160 mmHg BP Diastolic Sitting 78 mmHg Respiratory Rate 18 /min Body Temperature 98.1 F 02/16/2018 1:50pm Height 67 inches 5'7" Weight 188.00 lb with shoes Heart Rate 64 /min irreg BP Systolic Sitting 160 mmHg Lue reg cuff BP Diastolic Sitting 70 mmHg Lue reg cuff BP Systolic Standing 152 mmHg Lue reg cuff BP Diastolic Standing 70 mmHg Lue reg cuff Respiratory Rate 16 /min BMI (Body Mass Index) 29.4 kg/m2 Ejection Fraction 60-65% date 07/29/17 ECHO 01/18/2018 7:45am Height 67 inches 5'7" Weight 188.75 lb with shoes Heart Rate 64 /min BP Systolic Sitting 170 mmHg Rue reg cuff BP Diastolic Sitting 86 mmHg Rue reg cuff BP Systolic Standing 176 mmHg Rue reg cuff BP Diastolic Standing 92 mmHg Rue reg cuff Respiratory Rate 17 /min BMI (Body Mass Index) 29.6 kg/m2 Ejection Fraction 60-65% 07/29/2017-echo 09/02/2017 11:16am Heart Rate 58 /min Respiratory Rate 16 /min Body Temperature 97.5 F 08/16/2017 9:57am Height 67 inches 5'7" Weight 196.00 lb Heart Rate 60 /min BP Systolic 118 mmHg BP Diastolic 64 mmHg Respiratory Rate 16 /min Body Temperature 97.3 F BMI (Body Mass Index) 30.7 kg/m2 08/03/2017 11:06am Height 67 inches 5'7" Weight 196.00 lb No shoes Heart Rate 66 /min BP Systolic 148 mmHg Lue reg cuff BP Diastolic 76 mmHg Lue reg cuff BP Systolic Sitting 136 mmHg Rue reg cuff BP Diastolic Sitting 74 mmHg Rue reg cuff BP Systolic Standing 146 mmHg Rue reg cuff BP Diastolic Standing 76 mmHg Rue reg cuff Respiratory Rate 16 /min BMI (Body Mass Index) 30.7 kg/m2 Ejection Fraction 60-65% 07/29/2017-echo 07/08/2017 8:23am Height 67 inches 5'7" Weight 201.00 lb No shoes Heart Rate 76 /min BP Systolic 132 mmHg Rue reg cuff BP Diastolic 72 mmHg Rue reg cuff BP Systolic Sitting 130 mmHg Lue reg cuff BP Diastolic Sitting 74 mmHg Lue reg cuff BP Systolic Standing 138 mmHg Lue reg cuff BP Diastolic Standing 80 mmHg Lue reg cuff Respiratory Rate 17 /min BMI (Body Mass Index) 31.5 kg/m2 06/22/2017 12:38pm Height 67 inches 5'7" Weight 206.00 lb Heart Rate 80 /min BP Systolic 140 mmHg BP Diastolic 70 mmHg Respiratory Rate 16 /min BMI (Body Mass Index) 32.3 kg/m2 06/21/2017 8:35am Height 67 inches 5'7" Weight 206.00 lb Heart Rate 68 /min BP Systolic 140 mmHg BP Diastolic 82 mmHg Respiratory Rate 16 /min Body Temperature 97.7 F BMI (Body Mass Index) 32.3 kg/m2 08/19/2015 10:51am Height 67 inches 5'7" Weight 217.00 lb Heart Rate 78 /min BP Systolic Sitting 150 mmHg BP Diastolic Sitting 66 mmHg Respiratory Rate 14 /min Pain Level 0 BMI (Body Mass Index) 34.0 kg/m2 06/20/2015 1:31pm Height 67 inches 5'7" Weight 215.00 lb Heart Rate 78 /min BP Systolic Sitting 140 mmHg BP Diastolic Sitting 60 mmHg Body Temperature 98.7 F Pain Level 4 BMI (Body Mass Index) 33.7 kg/m2 05/20/2015 12:58pm Height 70 inches 5'10" Weight 210.00 lb Pain Level 10 BMI (Body Mass Index) 30.1 kg/m2 05/06/2015 1:17pm Height 70 inches 5'10" Weight 210.00 lb Heart Rate 60 /min BP Systolic 178 mmHg BP Diastolic 70 mmHg BMI (Body Mass Index) 30.1 kg/m2 11/14/2014 2:32pm Height 70 inches 5'10" Weight 210.00 lb Heart Rate 65 /min BP Systolic 165 mmHg BP Diastolic 78 mmHg Body Temperature 97.9 F Pain Level 4 BMI (Body Mass Index) 30.1 kg/m2 10/04/2014 2:38pm Height 70 inches 5'10" Weight 210.00 lb Heart Rate 69 /min BMI (Body Mass Index) 30.1 kg/m2 09/20/2014 1:55pm Height 70 inches 5'10" Weight 210.00 lb Heart Rate 58 /min BP Systolic 168 mmHg BP Diastolic 64 mmHg Pain Level 10 BMI (Body Mass Index) 30.1 kg/m2 Results Test Date Facility Test Result H/L Range Note Basic Metabolic 06/25/2017 [facility] Sodium 139 mmol/L N 133- [address] [place] [address] [phone] Potassium 3.8 mmol/L N 3.5-5.0 Chloride 105 mmol/L N 101-111 Co2 Carbon Dioxide 27 mmol/L N 22-32 Anion Gap 7 mmol/L N 2-11 Glucose 115 mg/dL High 70-100 Blood Urea Nitrogen 25 mg/dL High 6-24 Creatinine 1.16 mg/dL N 0.67-1.17 BUN/Creatinine Ratio 21.6 High 8-20 Calcium 9.1 mg/dL N 8.6-10.3 Egfr Non- 59.6 >60 Egfr 76.6 >60 1 CBC No Diff 06/25/2017 [facility] White Blood 6.9 10^3/uL N 3.5-10.[address] [place] [address] [phone] Red Blood Count 4.28 10^6/uL N 4.0-5.4 Hemoglobin 13.0 g/dL Low 14.0-18.0 Hematocrit 38 % Low 42-52 Mean Corpuscular Volume 88 fL N 80-94 Mean Corpuscular Hemoglobin 30 pg N 27-31 Mean Corpuscular HGB Conc 34 g/dL N 31-36 Red Cell Distribution Width 14 % N 10.5-15 Platelet Count 197 10^3/uL N 150-450 Mean Platelet Volume 9 um3 N 7.4-10.4 Comp Metabolic Panel 12/18/2015 [facility] Sodium 138 mmol/L N 133-[address] [place] [address] [phone] Potassium 3.9 mmol/L N 3.5-5.0 Chloride 106 [...] 63.6 N >60 Egfr 81.8 N >60 2 Laboratory test 12/18/2015 [facility] C Reactive < 1.00 N < 5.00 [address] Protein mg/[place] [address] [phone] CBC Auto Diff 12/18/2015 [facility] White Blood 6.4 N 3.5- 10.[address] Count 10^3/[place] [address] [phone] Red Blood Count 4.50 10^6/uL N 4.0-5.4 [...] Blood Cells % 0.1 N Laboratory test 12/18/2015 [facility] Erythrocyte Sed 8 mm/Hr N 0-40 [address] [place] [address] [phone] Rheumatoid Factor <15 IU/mL N <15 5 Cyclic Citrullinated Pep Igg <15.6 U N 6 Comp Metabolic Panel 11/18/2015 [facility] Sodium 136 mmol/L N 133-[address] [place] [address] [phone] Potassium 3.9 mmol/L N 3.5-5.0 Chloride 104 mmol/L N 101-111 Co2 Carbon Dioxide 25 mmol/L N 22-32 Anion Gap 7 mmol/L N 2-11 Glucose 97 mg/dL N 70-100 Blood Urea Nitrogen 28 mg/dL High 6-24 Creatinine 1.11 mg/dL N 0.67-1.17 BUN/Creatinine Ratio 25.2 High 8-20 Calcium 8.9 mg/dL N 8.6-10.3 Total Protein 6.2 g/dL Low 6.4-8.9 Albumin 4.2 g/dL N 3.2-5.2 Globulin 2.0 g/dL N 2-4 Albumin/Globulin Ratio 2.1 N 1-3 Total Bilirubin 0.50 mg/dL N 0.2-1.0 Alkaline Phosphatase 35 U/L N 34-104 Alt 13 U/L N 7-52 Ast 18 U/L N 13-39 Egfr Non- 63.0 N >60 Egfr 81.0 N >60 7 Laboratory test 11/18/2015 [facility] C Reactive 1.30 mg/L N < 5.00 [address] [place] [address] [phone] CBC Auto Diff 11/18/2015 [facility] White Blood 5.7 N 3.5- 10.[address] Count 10^3/[place] [address] [phone] Red Blood Count 4.20 10^6/uL N 4.0-5.4 Hemoglobin 13.0 g/dL Low 14.0-18.0 Hematocrit 38 % Low 42-52 Mean Corpuscular Volume 91 fL N 80-94 Mean Corpuscular Hemoglobin 31 pg N 27-31 Mean Corpuscular HGB Conc 34 g/dL N 31-36 Red Cell Distribution Width 14 % N 10.5-15 Platelet Count 166 10^3/uL N 150-450 Mean Platelet Volume 9 um3 N 7.4-10.4 Abs Neutrophils 3.1 10^3/uL N 1.5-7.7 Abs Lymphocytes 2.1 10^3/uL N 1.0-4.8 Abs Monocytes 0.4 10^3/uL N 0-0.8 Abs Eosinophils 0.1 10^3/uL N 0-0.6 Abs Basophils 0 10^3/uL N 0-0.2 Abs Nucleated RBC 0.01 10^3/uL N Granulocyte % 53.9 % N 38-83 Lymphocyte % 36.6 % N 25-47 Monocyte % 7.8 % N 1-9 Eosinophil % 1.2 % N 0-6 Basophil % 0.5 % N 0-2 Nucleated Red Blood Cells % 0.1 N Laboratory test 11/18/2015 [facility] Erythrocyte Sed 10 mm/Hr N 0-40 [address] [place] [address] [phone] Rheumatoid Factor <15 IU/mL N <15 10 Cyclic Citrullinated Pep Igg <15.6 U N 11 Comp Metabolic Panel 10/18/2015 [facility] Sodium 137 mmol/L N 133-[address] [place] [address] [phone] Potassium 4.1 mmol/L N 3.5-5.0 Chloride 103 [...] 61.1 N >60 Egfr 78.5 N >60 12 Laboratory test 10/18/2015 [facility] C Reactive 1.90 mg/L N < 5.00 [address] [place] [address] [phone] CBC Auto Diff 10/18/2015 [facility] White Blood 5.5 N 3.5- 10.[address] Count 10^3/[place] [address] [phone] Red Blood Count 4.20 10^6/uL N 4.0-5.4 [...] Blood Cells % 0.1 N Laboratory test 10/18/2015 [facility] Erythrocyte Sed 14 mm/Hr N 0-[address] [place] [address] [phone] Cyclic Citrullinated Pep Igg <15.6 U N 15 Rheumatoid Factor <15 IU/mL N <15 16 Comp Metabolic Panel 09/19/2015 [facility] Sodium 135 mmol/L N 133-[address] [place] [address] [phone] Potassium 3.6 mmol/L N 3.5-5.0 Chloride 104 [...] 60.4 N >60 Egfr 77.7 N >60 17 Laboratory test 09/19/2015 [facility] C Reactive 7.34 mg/L High < 5.[address] [place] [address] [phone] CBC Auto Diff 09/19/2015 [facility] White Blood 8.1 N 3.5- 10.[address] Count 10^3/[place] [address] [phone] Red Blood Count 4.21 10^6/uL N 4.0-5.4 [...] Blood Cells % 0 N Laboratory test 09/19/2015 [facility] Erythrocyte Sed 21 mm/Hr N 0-40 [address] [place] [address] [phone] Rheumatoid Factor <15 IU/mL N <15 20 Cyclic Citrullinated Pep Igg <15.6 U N 21 Comp Metabolic Panel 08/15/2015 [facility] Sodium 136 mmol/L N 133-[address] [place] [address] [phone] Potassium 3.2 mmol/L Low 3.5-5.0 Chloride 104 [...] 73.6 N >60 Egfr 94.6 N >60 23 CBC Auto Diff 08/15/2015 [facility] White Blood 7.7 10^3/uL N 3.5-10.[address] [place] [address] [phone] Red Blood Count 4.13 10^6/uL N 4.0-5.4 [...] Blood Cells % 0 N Laboratory test 08/15/2015 [facility] Erythrocyte Sed 21 mm/Hr N 0-40 [address] [place] [address] [phone] C Reactive Protein 17.96 mg/L High < 5.00 25 Cyclic Citrullinated Pep Igg <15.6 U N 26 Rheumatoid Factor <15 IU/mL N <15 27 Ua And Culture 08/15/2015 [facility] Urine Culture And SEE RESULT 28, [address] [address] [phone] Urinalysis 08/15/2015 [facility] Urine Color Yellow N Profile [address] [place] [address] [phone] Urine Appearance Cloudy N Urine Specific [place] 1.015 N 1.010-1.030 Urine pH 6.0 N 5-9 Urine Urobilinogen Negative N Negative Urine Ketones Negative N Negative Urine Protein 1+(30 mg/dL) Abnormal Negative Urine Leukocytes 2+ Abnormal Negative Urine Blood Negative N Negative * * Abnormal Negative 30 Urine Nitrite Negative N Negative Urine Bilirubin Negative N Negative Urine Glucose Negative N Negative Urine White Blood Cell 3+(>20/hpf) Abnormal Absent Urine Red Blood Cell Trace(0-2/hpf) N Absent Urine Bacteria Absent N Absent Urine Squamous Epithelial Cell Present Abnormal Absent Urine Amorphous Crystals Present Abnormal Absent Comp Metabolic Panel 07/19/2015 [facility] Sodium 138 mmol/L N 133-[address] [place] [address] [phone] Potassium 3.5 mmol/L N 3.5-5.0 Chloride 105 mmol/L N 101-111 Co2 Carbon Dioxide 26 mmol/L N 22-32 Anion Gap 7 mmol/L N 2-11 Glucose 148 mg/dL High 70-100 Blood Urea Nitrogen 26 mg/dL High 6-24 Creatinine 1.25 mg/dL High 0.67-1.17 BUN/Creatinine Ratio 20.8 High 8-20 Calcium 9.1 mg/dL N 8.6-10.3 Total Protein 6.4 g/dL N 6.4-8.9 Albumin 4.2 g/dL N 3.2-5.2 Globulin 2.2 g/dL N 2-4 Albumin/Globulin Ratio 1.9 N 1-3 Total Bilirubin 0.60 mg/dL N 0.2-1.0 Alkaline Phosphatase 42 U/L N 34-104 Alt 14 U/L N 7-52 Ast 16 U/L N 13-39 Egfr Non- 54.9 N >60 Egfr 70.6 N >60 31 Laboratory test 07/19/2015 [facility] Erythrocyte Sed 13 mm/Hr N 0-40 [address] [place] [address] [phone] Cyclic Citrullinated Pep Igg <15.6 U N 33 Rheumatoid Factor <15 IU/mL N <15 34 CBC Auto Diff 07/19/2015 [facility] White Blood 8.3 10^3/uL N 3.5-10.[address] [place] [address] [phone] Red Blood Count 4.15 10^6/uL N 4.0-5.4 Hemoglobin 12.8 g/dL Low 14.0-18.0 Hematocrit 38 % Low 42-52 Mean Corpuscular Volume 91 fL N 80-94 Mean Corpuscular Hemoglobin 31 pg N 27-31 Mean Corpuscular HGB Conc 34 g/dL N 31-36 Red Cell Distribution Width 14 % N 10.5-15 Platelet Count 187 10^3/uL N 150-450 Mean Platelet Volume 9 um3 N 7.4-10.4 Abs Neutrophils 5.9 10^3/uL N 1.5-7.7 Abs Lymphocytes 1.7 10^3/uL N 1.0-4.8 Abs Monocytes 0.6 10^3/uL N 0-0.8 Abs Eosinophils 0.1 10^3/uL N 0-0.6 Abs Basophils 0.1 10^3/uL N 0-0.2 Abs Nucleated RBC 0 10^3/uL N Granulocyte % 70.6 % N 38-83 Lymphocyte % 20.5 % Low 25-47 Monocyte % 7.0 % N 1-9 Eosinophil % 0.7 % N 0-6 Basophil % 1.2 % N 0-2 Nucleated Red Blood Cells % 0 N Laboratory test 07/19/2015 [facility] C Reactive 5.16 High < 5.00 [address] Protein mg/[place] [address] [phone] Laboratory test 06/20/2015 [facility] Erythrocyte Sed 18 mm/Hr N 0-40 36, [address] [place] [address] [phone] C Reactive Protein 10.52 mg/L High < 5.00 38 Rheumatoid Factor <15 IU/mL N <15 39 Cyclic Citrullinated Pep Igg <15.6 U N 40 Comp Metabolic Panel 06/20/2015 [facility] Sodium 137 mmol/L N 133-[address] [place] [address] [phone] Potassium 3.9 mmol/L N 3.5-5.0 Chloride 104 mmol/L N 101-111 Co2 Carbon Dioxide 27 mmol/L N 22-32 Anion Gap 6 mmol/L N 2-11 Glucose 102 mg/dL High 70-100 Blood Urea Nitrogen 27 mg/dL High 6-24 Creatinine 1.08 mg/dL N 0.67-1.17 BUN/Creatinine Ratio 25.0 High 8-20 Calcium 9.1 mg/dL N 8.6-10.3 Total Protein 6.1 g/dL Low 6.4-8.9 Albumin 4.0 g/dL N 3.2-5.2 Globulin 2.1 g/dL N 2-4 Albumin/Globulin Ratio 1.9 N 1-3 Total Bilirubin 0.40 mg/dL N 0.2-1.0 Alkaline Phosphatase 36 U/L N 34-104 Alt 13 U/L N 7-52 Ast 17 U/L N 13-39 Egfr Non- 65.0 N >60 Egfr 83.6 N >60 41 CBC Auto Diff 06/20/2015 [facility] White Blood 5.9 10^3/uL N 4.8-10.[address] [place] [address] [phone] Red Blood Count 4.18 10^6/uL N 4.0-5.4 Hemoglobin 12.7 g/dL Low 14.0-18.0 Hematocrit 37 % Low 42-52 Mean Corpuscular Volume 90 fL N 80-94 Mean Corpuscular Hemoglobin 30 pg N 27-31 Mean Corpuscular HGB Conc 34 g/dL N 31-36 Red Cell Distribution Width 13 % N 10.5-15 Platelet Count 172 10^3/uL N 150-450 Mean Platelet Volume 8 um3 N 7.4-10.4 Abs Neutrophils 3.5 10^3/uL N 1.5-7.7 Abs Lymphocytes 1.8 10^3/uL N 1.0-4.8 Abs Monocytes 0.5 10^3/uL N 0-0.8 Abs Eosinophils 0.1 10^3/uL N 0-0.6 Abs Basophils 0.1 10^3/uL N 0-0.2 Abs Nucleated RBC 0 10^3/uL N Granulocyte % 59.1 % N 38-83 Lymphocyte % 30.1 % N 25-47 Monocyte % 8.7 % N 1-9 Eosinophil % 1.3 % N 0-6 Basophil % 0.8 % N 0-2 Nucleated Red Blood Cells % 0.1 N CBC Auto Diff 05/06/2015 [facility] White Blood 7.4 10^3/uL N 4.8-10.[address] [place] [address] [phone] Red Blood Count 4.18 10^6/uL N 4.0-5.4 Hemoglobin 13.0 g/dL Low 14.0-18.0 Hematocrit 38 % Low 42-52 Mean Corpuscular Volume 91 fL N 80-94 Mean Corpuscular Hemoglobin 31 pg N 27-31 Mean Corpuscular HGB Conc 34 g/dL N 31-36 Red Cell Distribution Width 13 % N 10.5-15 Platelet Count 191 10^3/uL N 150-450 Mean Platelet Volume 8 um3 N 7.4-10.4 Abs Neutrophils 4.9 10^3/uL N 1.5-7.7 Abs Lymphocytes 1.6 10^3/uL N 1.0-4.8 Abs Monocytes 0.6 10^3/uL N 0-0.8 Abs Eosinophils 0.1 10^3/uL N 0-0.6 Abs Basophils 0.1 10^3/uL N 0-0.2 Abs Nucleated RBC 0.01 10^3/uL N Granulocyte % 66.6 % N 38-83 Lymphocyte % 22.2 % Low 25-47 Monocyte % 8.6 % N 1-9 Eosinophil % 1.6 % N 0-6 Basophil % 1.0 % N 0-2 Nucleated Red Blood Cells % 0.1 N Laboratory test 05/06/2015 [facility] C Reactive 14.31 High < 5.00 [address] Protein mg/[place] [address] [phone] Arthritis Panel 05/06/2015 [facility] Erythrocyte Sed 14 mm/Hr N 0-[address] [place] [address] [phone] Uric Acid 6.0 mg/dL N 4.4-7.6 Kimberly (Anti-Nuclear AB) Screen Negative N Negative Rheumatoid Factor <15 IU/mL N <15 43 1 Because ethnic data is not always readily [...] 15-29 5 Kidney failure <15 (or dialysis) 2 Because ethnic data is not always [...] 5 Kidney failure <15 (or dialysis) 3 Acute inflammation: >10.00 4 S/O EXP:12/19/2015 5 Test Performed by: [place] [address] Staff Appraiser: Christina Kevin II, M.D., Ph.D. 6 REFERENCE VALUE <20.0 (Negative) Test Performed by: [place] [address] Staff Appraiser: Christina Kevin II, M.D., Ph.D. 7 Because ethnic data is not always readily [...] 15-29 5 Kidney failure <15 (or dialysis) 8 Acute inflammation: >10.00 9 S/O EXP:12/19/2015 10 Test Performed by: [place] [address] Staff Appraiser: Christina Kevin II, M.D., Ph.D. 11 REFERENCE VALUE <20.0 (Negative) Test Performed by: [place] [address] Staff Appraiser: Christina Kevin II, M.D., Ph.D. 12 Because ethnic data is not always [...] 5 Kidney failure <15 (or dialysis) 13 Acute inflammation: >10.00 14 S/O EXP:12/19/2015 15 REFERENCE VALUE <20.0 (Negative) Test Performed by: [place] [address] Staff Appraiser: Christina Kevin II, M.D., Ph.D. 16 Test Performed by: [place] [address] Staff Appraiser: Christina Kevin II, M.D., Ph.D. 17 Because ethnic data is not always readily [...] 15-29 5 Kidney failure <15 (or dialysis) 18 Acute inflammation: >10.00 19 S/O EXP:12/19/2015 20 Test Performed by: [facility] ([address] [place] [address] Staff Appraiser: Christina Kevin II, M.D., Ph.D. 21 REFERENCE VALUE <20.0 (Negative) Test Performed by: [place] [address] Staff Appraiser: Christina G. Morice, II, M.D., Ph.D. 22 standing order q 4 weeks or as directed 23 Because ethnic data is not always readily [...] 15-29 5 Kidney failure <15 (or dialysis) 24 standing order q 4 weeks or as directed 25 Acute inflammation: >10.00 26 REFERENCE VALUE <20.0 (Negative) Test Performed by: [place] [address] Staff Appraiser: Christina Kevin II, M.D., Ph.D. 27 Test Performed by: [place] [address] Staff Appraiser: Christina Kevin II, M.D., Ph.D. 28 one time order. Please draw with next standing order labs 29 SEE RESULT BELOW Name: CHRISTINA ZAIDI : [address]: Sin Ibanez MD Acct: [id number] Unit: [id number] AGE: 85 Location: [facility] Re08/15/15 SEX: M Status: REG REF SPEC: [id number] LAMONTE: 08/15/15-[address] [facility] [address]: Sin Ibanez MD REQ: [id number] RECD: 08/15/15-1015 STATUS: RAJEEV CHO DR: Paulo Mcneil MD _ SOURCE: URINE SPDESC: ORDERED: Urine Culture COMMENTS: one time order. Please draw with next standing order labs Procedure Result Reported Site Urine Culture Final 08/17/15- 1012 ML No growth of clinically significant organisms * ML - MAIN LAB ([facility]) . END OF REPORT * ML=Testing performed at Main Lab DEPARTMENT OF PATHOLOGY, [address] [place] [address] Jimmy He M.D. Director [facility] # [id number] 30 *Ascorbic acid is present which may interfere with detection of blood. 31 Because ethnic data is not always readily [...] 15-29 5 Kidney failure <15 (or dialysis) 32 S/O EXP:12/19/2015 33 REFERENCE VALUE <20.0 (Negative) Test Performed by: [place] [address] Staff Appraiser: Christina Kevin II, M.D., Ph.D. 34 Test Performed by: [place] [address] Staff Appraiser: Christina Kevin II, M.D., Ph.D. 35 Acute inflammation: >10.00 36 standing order q 4 weeks 37 standing order q 4 weeks 38 Acute inflammation: >10.00 39 Test Performed by: [place] [address] Staff Appraiser: Christina Kevin II, M.D., Ph.D. 40 REFERENCE VALUE <20.0 (Negative) Test Performed by: [address] [address] Staff Appraiser: Christina Kevin II, M.D., Ph.D. 41 Because ethnic data is not always readily [...] 15-29 5 Kidney failure <15 (or dialysis) 42 Acute inflammation: >10.00 43 Test Performed by: [address] [address] Staff Appraiser: Christina Kevin II, M.D., Ph.D. Procedures Date Code Description Status 10/06/2018 65828 EKG Tracing & Interpretation Completed 02/23/2018 99924 Holter Monitor Review (24 hr)dr review & interp only Completed 02/22/2018 12003 ECG Monitor/Recording W/Visual Superimposition Scanning Completed 02/16/2018 74501 EKG Tracing & Interpretation Completed 01/18/2018 90479 EKG Tracing & Interpretation Completed 08/25/2017 65749 Repair Hernia Inguinal > 5Yrs, Reducible Completed 08/25/2017 43266 Repair Hernia Inguinal > 5Yrs, Reducible Completed 07/29/2017 40068 ECHO Transthoracic, Real-Time 2D With Doppler And Color Completed Flow 07/29/2017 88949 ECHO Transthoracic, Real-Time 2D With Doppler And Color Completed Flow 07/14/2017 95236 Stress Test Completed 07/14/2017 72701 Myocardial Perfusion Imaging Tomographic (Spect) Multiple Completed Studies 07/08/2017 89101 EKG Tracing & Interpretation Completed 06/25/2017 18840 EKG, Interpretation Only Completed 04/09/2007 09833 EKG, Interpretation Only Completed 04/09/2007 53746 EKG, Interpretation Only Completed Encounters Type Date Location Provider Dx Diagnosis Office Visit 01/09/2019 Neurosurgery Vassilios S06.5x0S Traum subdr hem 1:00p Services Of Alex Garcia MD w/o loss of consciousness, sequela Office Visit 10/06/2018 [facility] Alexandre SFestus Mora, I48.91 Unspecified atrial 2:00p Of Cashier Supervisor DO FACC fibrillation I45.19 Other right bundle-branch block I10 Essential (primary) hypertension R00.1 Bradycardia, unspecified F17.201 Nicotine dependence, unspecified, in remission Office Visit 03/11/2018 2:00p [facility] Alexandre S. I48.91 Unspecified atrial Of Cashier Supervisor Mora, DO fibrillation FACC I10 Essential (primary) hypertension I45.19 Other right bundle-branch block I49.3 Ventricular premature depolarization Z01.810 Encounter for preprocedural cardiovascular examination Office Visit 03/03/2018 10:30a Surgical Alexandre P. R10.31 Right lower [facility] Of Alex Ackerman MD, quadrant pain FACS Office Visit 02/16/2018 2:00p [facility] Alexandre S. I48.91 Unspecified atrial Of Cashier Supervisor Mora, DO fibrillation FACC I10 Essential (primary) hypertension R00.1 Bradycardia, unspecified I45.19 Other right bundle-branch block Z01.810 Encounter for preprocedural cardiovascular examination Office Visit 01/18/2018 8:20a [facility] Alexandre S. I48.91 Unspecified atrial Of Cashier Supervisor Mora, DO fibrillation FACC R00.1 Bradycardia, unspecified I10 Essential (primary) hypertension I45.19 Other right bundle-branch block Z01.810 Encounter for preprocedural cardiovascular examination Office Visit 08/03/2017 11:20a [facility] Alexandre S. I48.91 Unspecified atrial Of [employer]ier Supervisor Mora, DO fibrillation FACC R00.1 Bradycardia, unspecified I10 Essential (primary) hypertension I45.19 Other right bundle-branch block Z01.810 Encounter for preprocedural cardiovascular examination K40.90 Unil inguinal hernia, w/o obst or gangr, not spcf as recur Office Visit 07/08/2017 9:00a [facility] Alexandre SFestus I48.91 Unspecified atrial Of [facility] Morgan, DO fibrillation FACC I10 Essential (primary) hypertension R94.31 Abnormal electrocardiogram [ECG] [EKG] Z01.810 Encounter for preprocedural cardiovascular examination F17.201 Nicotine dependence, unspecified, in remission K40.90 Unil inguinal hernia, w/o obst or gangr, not spcf as recur Office Visit 06/21/2017 8:30a Surgical Alexandre Lawson K40.90 Unil inguinal [facility] MD Meka, hernia, w/o obst FACS or gangr, not spcf as recur Office Visit 08/19/2015 10:40a Rheumatology Sin Ibanez, 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 hand M19.042 Primary osteoarthritis, left hand M25.441 Effusion, right hand M25.442 Effusion, left hand Office Visit 05/06/2015 Orthopedic Mandy M19.041 Primary 1:15p [facility] osteoarthritis, right C.M.A. hand M19.042 Primary osteoarthritis, left hand M25.441 Effusion, right hand M25.442 Effusion, left hand Office Visit 11/14/2014 2:15p Orth[facility] M[facility] 715.14 Osteoarthrosis [facility] Localized Prim Hand C.M.A. Office Visit 10/04/2014 2:15p Orthopedic Mandy 729.5 Pain In Limb [facility] C.M.AFestus Office Visit 09/20/2014 1:30p Orthopedic Mandy 814.05 FX Carpal Trapezium [facility] Bone (Larger C.M[facility]AF[facility]us [facility]) Closed Plan of Treatment 01/09/2019 - Oscar Garcia, MDS06.5x0S Tra[facility] subdr hem w/o loss of consciousness, sequelaNew Xrays:CT Stealth Brainw/O, Ordered: 01/09/19Follow up: RV one week, one month, three months postop.
[2019-01-12] MEDS ORDERED: Famotidine IV* 10 MG/ML 2 ML (20 mg) ONE (09:40)
[2019-01-12] MEDS ORDERED: Ondansetron INJ* 2 MG/ML VIAL ONE (11:53)
[2019-01-12] MEDS ORDERED: Midazolam* 1 MG/ML 5 ML VIAL (5 MG) ONE (11:53)
[2019-01-12] MEDS ORDERED: EPHEDrine (Pressors)* 50 MG/ML VIAL ONE (11:53)
[2019-01-12] MEDS ORDERED: Rocuronium* 10 MG/ML VIAL ONE (11:53)
[2019-01-12] MEDS ORDERED: Lidocaine 2% PF * 5 ML VIAL ONE (11:53)
[2019-01-12] MEDS ORDERED: Dexamethasone IV* 4 MG/ML 1 ML (4 MG) ONE (11:53)
[2019-01-12] MEDS ORDERED: fentaNYL* 50 MCG/ML 2 ML VIAL (100 MCG VIAL) ONE ×2 (11:53→12:15)
[2019-01-12] MEDS ORDERED: Phenylephrine 10 MG/ML VIAL* 1 ML VIAL ONE (11:53)
[2019-01-12] MEDS ORDERED: Propofol* 10 MG/ML 20 ML BTL ONE (11:53)
[2019-01-12] MEDS ORDERED: Remifentanil* 2 MG VIAL ONE (11:54)
[2019-01-12] MEDS ORDERED: Sodium Chloride 0.9%* 10 ML ONE (11:54)
[2019-01-12] MEDS ORDERED: Propofol* 500 MG/50 ML BTL ONE (11:55)
[2019-01-12] MEDS ORDERED: Glycopyrrolate IV* 0.2 MG/ML 1 ML VIAL ONE ×3 (11:58→15:55)
[2019-01-12] MEDS ORDERED: Neostigmine Methylsulfate* 1 MG/ML 10 ML VIAL (1 mg/ml) ONE ×2 (11:58→15:55)
[2019-01-12] MEDS ORDERED: Labetalol IV* 5 MG/ML 20 ML VIAL ONE (12:23)
[2019-01-12] MEDS ORDERED: Lidocaine 1% MPF wEPI 200,000* 30 ML SDV ONE (12:44)
[2019-01-12] MEDS ORDERED: Thrombin 5,000 UNITS* 1 APPLIC KIT - topical use - TOPICAL ONE (12:44)
[2019-01-12] MEDS ORDERED: Bacitracin INJECTION* 50,000 UNITS ONE ×2 (12:45→15:41)
[2019-01-12] MEDS ORDERED: Artificial Tear OPHTH.OINT* 3.5 GM ONE (13:37)
[2019-01-12] MEDS ORDERED: Magnesium Hydroxide LIQ* 30 ML UDC PO PRN (16:42)
[2019-01-12] MEDS ORDERED: Acetaminophen IV 1GM/100ML * 1,000 MG/100 ML VIAL IVPB ONE (16:42)
[2019-01-12] MEDS ORDERED: Ondansetron INJ* 2 MG/ML VIAL IV PRN ×2 (16:42)
[2019-01-12] MEDS ORDERED: fentaNYL* 50 MCG/ML 2 ML VIAL (100 MCG VIAL) IV PRN (16:42)
[2019-01-12] MEDS ORDERED: HYDROcodone/ACETAMIN 5-325 MG* 1 TAB PO PRN (16:42)
[2019-01-12] MEDS ORDERED: Naloxone* 0.4 MG/ML 1 ML VIAL IV PRN (16:42)
[2019-01-12] MEDS ORDERED: Acetaminophen IV 1GM/100ML * 100 ML ONE (16:59)
--- NOTE | 2019-01-12 17:55 | PN ---
Date of Service: 01/12/19 - CONSULT Critical Care Services: 88 yo M who had falled approximately 1.5 months ago. Seen in ED and found to have bilateral SDH on 01/03 with right hand weakness. He had been on eliquis for chronic afib. Returns to hospital on 01/12 for elective bilateral craniotomies with drain placement. Post procedure admitted to ICU for further care. Vital Signs: Temp Pulse Resp BP SpO2 FiO2 97.3 F 57 16 132/62 94 01/12/19 16:30 01/12/19 17:30 01/12/19 17:30 01/12/19 17:30 01/12/19 17:30 Physical Exam: Gen: resting comfortably HEENT: frontal drains in place. draining old blood Lungs: CTAB Cardiac: RRR Abdomen: soft, NTND Extremities: warm, dry, no edema Neuro:equal and strong chore worker strength bilaterally. dorsi and plantar flexion equal bilaterally Fluid Balance (Past 24 Hours): I= O= Net Intake & Output 01/10/19 01/11/19 01/12/19 01/13/19 06:59 06:59 06:59 06:59 Intake Total 1350 Balance 1350 Weight 198 lb Intake: IV Fluids 1350 NS 250ML, Vancomycin 250 1000MG lr 1100 Labs: none Studies: none Nutrition: NPO while on bedrest Impression: 88 yo M with bilateral SDH underwent elective bilateral craniotomies with drain placement on 01/12. Plan: Cardiovascular: (1) Chronic atrial fibrillation; (2) Benign essential HTN -- HR 49-63 -- SBP 118-163 -- Telemetry -- Amlodipine -- PRN Hydralazine for goal SBP < 140 Home meds: Amlodipine, Eliqius (discontinued Pulmonary: No acute issues -- RR 15-20 -- sats 96-100 on 2L NC Home meds: None Gastrointestinal: No acute issues -- diet: NPO while on bedrest -- bowel regimen: milk of mag -- ulcer prophylaxis: not indicated at this time -- Zofran as needed Home meds: None Endocrine: No acute issues -- monitor BGs Home meds: None Renal: (1) BPH -- UOP: strict ins and outs -- IVF: LR @ 75 ml/hr -- BMP ordered with AM labs Home meds: None Infectious disease: No acute issues -- Tmax 98.4 -- WBC ordered with AM labs -- Micro None -- ABX Vancomycin for intracranial drains Home meds: None Neurologic: (1) Bilateral subacute SDH after fall s/p bilateral craniotomies -- PRN Perocoet for pain control -- Keppra -- repeat head CT scheduled for AM -- Neurosurgery following Home meds: Keppra Hematological: No acute issues -- CBC ordered with AM labs -- Coags ordered with AM labs -- DVT prophylaxis: SCDs, chemoprophylaxis contraindicated secondary to SDH Home meds: eliquis Metabolic: No acute issues Home meds: None Other: No acute issues -- Folic acid Home meds: Folic acid, MVI Deep vein thrombosis prophylaxis: SCDs, chemoprophylaxis contraindicated secondary to SDH Dietary: not indicated at this time Condition: stable Prognosis: good Code status:DNR Disposition: admitted to ICU Cumulative time spent in the care of this patient (excluding any procedure time) : at least 30 minutes. Patient care included clinical interview (with patient and/or family), bedside exam of the patient, review of labs, x-rays, and other ancillary data, coordination of (respiratory, nursing care, review of patient's records, discussion regarding patients management with involved consultants, primary physician, pharmacists, and other healthcare personnel (dietary, case management , physical/occupational therapy etc.) Critical Care Time: 30
[2019-01-12] MEDS ORDERED: levETIRAcetam 500 MG IVPREMIX* 500 MG/100 ML BAG IV SCH (18:00)
[2019-01-12] MEDS ORDERED: Morphine 4 MG/ML VIAL (1 ml) 4 MG/ML VIAL IV PRN (18:09)
[2019-01-12] MEDS ORDERED: Vancomycin per Pharmacy* NOTE FOLLOW UP PRN (19:12)
[2019-01-12] MEDS: levETIRAcetam 500 MG IVPREMIX* 500 MG/100 ML BAG IV SCH (20:52)
--- NOTE | 2019-01-12 21:53 | OP ---
DATE OF OPERATION: 01/12/19 - ROOM #ICU-01 DATE OF : 30 SURGEON: Oscar Garcia M.D. NEUROCRITICAL CARE PHYSICIAN: Francisco Dejesus PA-C. The case was done with the assistance of surgical PA because of the complexity of the case. ANESTHESIA: General. PRE-OP DIAGNOSIS: Bilateral subdural hematomas. POST-OP DIAGNOSIS: Bilateral subdural hematomas. OPERATIVE PROCEDURE: The patient underwent bilateral frontal edgar holes placement for evacuation of subdural hematoma and placement of subdural drain with intraoperative navigation. ESTIMATED BLOOD LOSS: 30 cc. COMPLICATIONS: None. SUMMARY: This is a very pleasant 88-year-old gentleman with a history of atrial fibrillation, who was on Eliquis. The patient sustained a fall a few weeks ago. He developed, prior to this hospital admission, difficulty with his right upper extremity dexterity. He was diagnosed with CT scan of the brain with bilateral subdural hematomas and was offered the option of evacuation of subdural hematomas with bilateral edgar holes. After explaining expectations, limitations, and possible complications of the procedure to the patient and his family including his son and his significant other with complications including , but not limited to bleeding, infection, risk of injury to adjacent structures , paralysis, , need for additional procedures, anesthesia risks, stroke, blindness, cancer, instability, inability to evacuate the subdural hematomas, reaccumulation of subdural hematomas, difficulty with his speech, , seizures, and anesthesia risks. The patient and his family were agreeable to proceed with surgery. Informed consent was obtained. The patient understood that his condition may not improve and in fact may get worse after the surgery and that he may need to have additional procedures in the future. They also understood that the operative plan may be modified according to intraoperative findings and conditions and that operation could be abandoned or done in more than 1 stages. He also understood that there was possibility for need for further surgical intervention in the future including additional edgar holes or craniotomy/craniectomies. The patient understood and he may require prolonged ICU stay, prolonged rehabilitation, need for tracheostomy or gastrostomy, prolonged dependence on the ventilator, and prolonged rehabilitation. DESCRIPTION OF PROCEDURE: The patient was brought to the operating room and was placed under general anesthesia by the anesthesia team. He was carefully positioned supine on the operative table and was placed under general anesthesia by anesthesia team. His hair was removed with surgical clippers and with use of [employer] system, the patient's head was registered with a navigation platform. The essential edgar hole points were selected and the possibility for conversion to craniotomy or craniectomy was also taken into consideration. The skin was infiltrated with local anesthetic in the 2 longitudinal paramedian frontal incision sites. Skin was incised with #10 surgical blade. The incision was carried down to the periosteum. Self-retaining retractors were introduced into the field and bilateral edgar holes were placed with high-speed drill. After meticulous hemostasis was confirmed and copious irrigation, the dura was coagulated and incised with #11 surgical blade. Subdural space was entered and machine oil subdural hematoma fluid was encountered under significant pressure. Two ventriculostomy catheters were placed into the subdural space with the assistance of stereotactic navigation and tunneled through separate stab wound incisions to the skin. 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 Then, the self-retaining retractors were removed and the wound was closed by layers with inverted, interrupted Vicryl sutures to approximate the subcutaneous tissue and aman to approximate the skin while the catheters were secured in place with sutures. At the end of the procedure, all counts were reported to be correct. The patient remained hemodynamically stable throughout the case. At the end of the procedure, the patient was extubated and was transferred to Recovery in excellent condition. The case was done with the assistance of a surgical PA because of the complexity of the case. [id number]/[id number] #: [id number] BEN
[2019-01-13] MEDS: Vancomycin(*) 1,000 MG in NS 0.9% 250 ML* 250 ML IVPB SCH ×2 (00:36→13:23)
[2019-01-13 04:20] LABS: Hematocrit 34 % (42-52); Hemoglobin 11.5 g/dL (14.0-18.0); Mean Corpuscular HGB Conc 34 g/dL (31-36); Mean Corpuscular Hemoglobin 30 pg (27-31); Mean Corpuscular Volume 88 fL (80-94); Mean Platelet Volume 7.3 fL (7.4-10.4); Platelet Count 239 10^3/uL (150-450); Red Blood Count 3.83 10^6 /uL (4.18-5.48); Red Cell Distribution Width 13 % (10-15)
[2019-01-13 04:32] LABS: Activated Partial Thrombo Time 33.6 seconds (26.0-38.0); INR 1.32 (0.82-1.09)
[2019-01-13 04:34] LABS: BUN/Creatinine Ratio 20.6 (8-20); Calcium 8.5 mg/dL (8.6-10.3); EGFR African American 88.4 (>60); Magnesium 2.1 mg/dL (1.9-2.7); Potassium 4.1 mmol/L (3.5-5.0)
[2019-01-13] MEDS: Lactated Ringers 1000 ML Bag* 1,000 ML IV SCH ×2 (07:31→20:48)
[2019-01-13] MEDS: levETIRAcetam 500 MG IVPREMIX* 500 MG/100 ML BAG IV SCH ×2 (08:16→20:47)
[2019-01-13] MEDS ORDERED: Calcium Gluconate INJ* 1 GM in NS 0.9% 50 ML* 50 ML IVPB ONE (09:11)
--- NOTE | 2019-01-13 09:13 | PN ---
Date of Service: 01/13/19 - HD 2 Critical Care Services: 88 yo M who had falled approximately 1.5 months ago. Seen in ED and found to have bilateral SDH on 01/03 with right hand weakness. He had been on eliquis for chronic afib. Returns to hospital on 01/12 for elective bilateral craniotomies with drain placement. Post procedure admitted to ICU for further care. 01/13: no overnight events Vital Signs: Temp Pulse Resp BP SpO2 FiO2 97.6 F 52 17 156/65 97 01/13/19 07:19 01/13/19 06:05 01/13/19 06:05 01/13/19 06:05 01/13/19 06:05 Physical Exam: Gen: sleeping comfortably HEENT: intact Lungs: nonlabored Cardiac: RRR Abdomen: nondistended Extremities: warm, dry, no edema Neuro: best exam, moving equally Fluid Balance (Past 24 Hours): I= O= Net Intake & Output 01/11/19 01/12/19 01/13/19 01/14/19 06:59 06:59 06:59 06:59 Intake Total 2524 Output Total 446 Balance 2078 Weight 198 lb 197 lb 12.074 oz Intake: IV Fluids 2136 LR 786 NS 250ML, Vancomycin 250 1000MG lr 1100 IVPB 280 ABX - VANCOMYCIN 280 Medicated IV 108 keppra 108 Output: Cranial Drain 161 Urine 285 Labs: Laboratory Results - last 24 hr 01/12/19 01/13/19 01/13/19 18:10 03:52 03:52 WBC RBC Hgb Hct MCV MCH MCHC RDW Plt Count MPV INR (Anticoag Therapy) 1.32 H APTT 33.6 Sodium 135 Potassium 4.1 Chloride 104 Carbon Dioxide 24 Anion Gap 7 BUN 20 Creatinine 0.97 Est GFR ( Amer) 88.4 Est GFR (Non-Af Amer) 73.0 BUN/Creatinine Ratio 20.6 H Glucose 158 H POC Glucose (mg/dL) 127 H Calcium 8.5 L Magnesium 2.1 01/13/19 03:52 WBC 6.0 RBC 3.83 L Hgb 11.5 L Hct 34 L MCV 88 MCH 30 MCHC 34 RDW 13 Plt Count 239 MPV 7.3 L INR (Anticoag Therapy) APTT Sodium Potassium Chloride Carbon Dioxide Anion Gap BUN Creatinine Est GFR ( Amer) Est GFR (Non-Af Amer) BUN/Creatinine Ratio Glucose POC Glucose (mg/dL) Calcium Magnesium Studies: 01/13 CT brain - s/p bilateral parietal approach subdural drain placement. moderate pneumocephalus. no significant change seen in right subacute SDH. Hemorrhage measuring 10mm SDH layering along left cerebral hemisphere slightly decreased. Mild mass effect. No midline shift. Nutrition: NPO Impression: 88 yo M with bilateral SDH underwent elective bilateral craniotomies with drain placement on 01/12. Plan: Cardiovascular: (1) Chronic atrial fibrillation; (2) Benign essential HTN -- HR 39-74 -- SBP 117-163 -- Telemetry -- Amlodipine -- PRN Hydralazine for goal SBP < 140 Home meds: Amlodipine, Eliqius (discontinued on prior admission) Pulmonary: No acute issues -- RR 6-21 -- sats 96-100 on 2L NC Home meds: None Gastrointestinal: No acute issues -- diet: NPO while on bedrest -- bowel regimen: milk of mag -- ulcer prophylaxis: not indicated at this time -- Zofran as needed Home meds: None Endocrine: No acute issues -- monitor BGs Home meds: None Renal: (1) BPH; (2) Hypocalcemia -- UOP: 37 ml/hr -- IVF: LR @ 75 ml/hr -- BMP Cr 0.97 Na 135 K 4.1 Ca 8.5, replace Mag 2.1 Home meds: None Infectious disease: No acute issues -- Tmax 98.4 -- WBC 6.0 -- Micro 01/12 MRSA screen negative -- ABX Vancomycin for intracranial drains Home meds: None Neurologic: (1) Bilateral subacute SDH after fall s/p bilateral craniotomies and subdural drain placement -- PRN Perocoet & Morphine for pain control -- Keppra -- PT when off bedrest -- Neurosurgery following Home meds: Keppra Hematological: No acute issues -- Hgb 11.5 -- Plt 239 -- Coags INR 1.32 PTT 33.6 -- DVT prophylaxis: SCDs, chemoprophylaxis contraindicated secondary to SDH Home meds: eliquis (discontinued on prior admission) Metabolic: No acute issues Home meds: None Other: No acute issues -- Folic acid Home meds: Folic acid, MVI Deep vein thrombosis prophylaxis: SCDs, chemoprophylaxis contraindicated secondary to SDH Dietary: not indicated at this time Condition: stable Prognosis: good Code status:DNR Disposition: admitted to ICU Cumulative time spent in the care of this patient (excluding any procedure time) : at least 30 minutes. Patient care included clinical interview (with patient and/or family), bedside exam of the patient, review of labs, x-rays, and other ancillary data, coordination of (respiratory, nursing care, review of patient's records, discussion regarding patients management with involved consultants, primary physician, pharmacists, and other healthcare personnel (dietary, case management , physical/occupational therapy etc.)
--- NOTE | 2019-01-13 09:54 | PN ---
Progress Note - Progress Note Date of Service: 01/13/19 SOAP: Subjective: 88 y/o male with bilateral SDH post bilateral bore holes with sub dural drains POD # 1. Patient is doing well, denies any headaches, nausea, vomiting, visual changes or extremity weakness. He indicates that he feels well and has no complaints at this time. Objective: Vital Signs - 12 hr Assessment: [] Plan: []
--- NOTE | 2019-01-13 11:07 | PN ---
Progress Note - Progress Note Date of Service: 01/13/19 SOAP: Subjective: 88 y/o male with bilateral SDH, post bilateral edgar holes with SDH drains POD # 1. Patient doing well, denies headaches, nausea, vomiting, visual changes or extremity weakness. Patient has no complaints at this time. Drain are actively 150 ml output reported. Patient currently NPO, until pending review of head CT. Objective: General: Patient laying flat in bed NAD, mood is pleasant. Neuro: GCS 15, A&O x4 CN II - XII intact, EOM intact, pupils equal negative Rhomberg, motor strength 5/5 in all extremities, sensation intact throughout. Assessment: 88 y/o male post Edgar holes SDH drains neurologically intact. Imaging show appropriate placement of catheter. Patient stable neurologically intact without focal deficits. Plan: 1) Advance diet as tolerated 2) continue to monitor drain output 3) Neuro checks Q 2 hrs 4) Possible drain D/C tomorrow
[2019-01-13] MEDS: Folic Acid TAB* 1 MG PO SCH (11:12)
[2019-01-13] MEDS: amLODIPine TAB* 5 MG PO SCH (15:45)
[2019-01-14] MEDS: Vancomycin(*) 1,000 MG in NS 0.9% 250 ML* 250 ML IVPB SCH (02:02)
[2019-01-14 06:43] LABS: Hematocrit 37 % (42-52); Hemoglobin 12.5 g/dL (14.0-18.0); Mean Corpuscular HGB Conc 34 g/dL (31-36); Mean Corpuscular Hemoglobin 30 pg (27-31); Mean Corpuscular Volume 88 fL (80-94); Mean Platelet Volume 7.4 fL (7.4-10.4); Platelet Count 241 10^3/uL (150-450); Red Blood Count 4.15 10^6 /uL (4.18-5.48); Red Cell Distribution Width 13 % (10-15); White Blood Count 9.7 10^3/uL (3.5-10.8)
[2019-01-14 06:59] LABS: BUN/Creatinine Ratio 17.5 (8-20); Calcium 8.3 mg/dL (8.6-10.3); EGFR African American 88.4 (>60); Potassium 3.9 mmol/L (3.5-5.0)
[2019-01-14] MEDS: levETIRAcetam 500 MG IVPREMIX* 500 MG/100 ML BAG IV SCH (08:26)
--- NOTE | 2019-01-14 09:06 | PN ---
Progress Note - Progress Note Date of Service: 01/14/19 SOAP: Subjective: 88 y/o male with history of bilateral SDH, post edgar holes with subdural drain placement POD #2, patient drain output has decreased since yesterday. There have not been any acute changes overnight. He has continued to be stable and has become uncomfortable with laying flat. Objective: General: patient laying flat in bed, NAD neuro: GCS 15, A& O x 3 CN II - XII, Motor strenght in tact in all extremities. Wond: Scalp wound C/D/I no signs of infection, Assessment: 88 y/o male with bilateral SDH post edgar hole, with SDH drains neurologically intact with no focal deficits. Plan: D/C drains D/C oxygen Transfer to step down unit.
--- NOTE | 2019-01-14 09:22 | PN ---
Progress Note - Progress Note Date of Service: 01/14/19 - Progress note/Transfer note Note: Pt seen and examined at bedside, overnight events noted, plan of care discussed with ICU team. Pt reports feeling well, denies any issues, is happy about being able to get up and use restroom and be able to sit up and eat Active Medications Generic Name Dose Route Start Last Admin Trade Name Freq PRN Reason Stop Dose Admin Hydrocodone Bitart/Acetaminophen 1 tab 01/12/19 16:42 [place] 5-325 Tab* PO Q4H PRN moderate pain Amlodipine Besylate 10 mg 01/13/19 16:00 01/13/19 15:45 Norvasc Tab* PO 10 mg 1600 TAMRA Administration Folic Acid 1 mg 01/13/19 09:00 01/13/19 11:12 Folvite Tab* PO 1 mg QAM TAMRA Administration Levetiracetam 500 mg 01/14/19 09:00 Keppra Tab* PO BID TAMRA Magnesium Hydroxide 30 ml 01/12/19 16:42 Milk Of Magnesia Liq* PO DAILY PRN CONSTIPATION Ondansetron HCl 4 mg 01/12/19 16:42 Zofran Inj* IV Q6H PRN NAUSEA/VOMITING Vital Signs Temp Pulse Resp BP Pulse Ox 99.1 F 41 14 158/58 100 01/14/19 07:58 01/14/19 06:01 01/14/19 06:01 01/14/19 06:01 01/14/19 06:01 O/E: pt in NAD HEENT: PERRLA, no JVD Lungs: Good a/e, clear to auscultation CVS: S1, S2+ Abd: Obese, BS+ Neuro: Alert, awake, able to move all 4 extremities, no cranial n deficits Skin: No rash Laboratory Results - last 24 hr 01/14/19 01/14/19 06:30 06:30 WBC 9.7 RBC 4.15 L Hgb 12.5 L Hct 37 L MCV 88 MCH 30 MCHC 34 RDW 13 Plt Count 241 MPV 7.4 Sodium 136 Potassium 3.9 Chloride 103 Carbon Dioxide 29 Anion Gap 4 BUN 17 Creatinine 0.97 Est GFR ( Amer) 88.4 Est GFR (Non-Af Amer) 73.0 BUN/Creatinine Ratio 17.5 Glucose 113 H Calcium 8.3 L Magnesium 2.0 6/14 CT brain - s/p bilateral parietal approach subdural drain placement. moderate pneumocephalus. no significant change seen in right subacute SDH. Hemorrhage measuring 10mm SDH layering along left cerebral hemisphere slightly decreased. Mild mass effect. No midline shift. I/R: 88 yo M who fell approximately 1.5 months ago, was found to have bilateral SDH on 01/03 with right hand weakness. He had been on eliquis for chronic afib. Returned to hospital on 01/12 for elective bilateral craniotomies with drain placement. Pt doing well neurologically. Had drains removed this am. Neuro sx f/u noted. -PRN Perocoet & Morphine for pain control -c/w Devan Pt with h/o A.fib, HTN. He has been on Amlodipine and Eliquis at home. Eliquis was held for neuro sx, to be restarted as per neuro sx recommendations. A.fib on monitor, rate controlled. Hydrallazine prn for goal SBP<140 No resp issues, currently on RA. Incentive spirometry Diet restarted, Zofran prn for nausea. UO good, no electrolyte abnormalities Low grade fever, No leucocytosis, received Vanco for ppx of intracranial drain Deep vein thrombosis prophylaxis: SCDs, chemoprophylaxis contraindicated secondary to SDH Code status DNR Pt to be transferred to step down unit D/w pt, Dr Peralta
[2019-01-14] MEDS: Folic Acid TAB* 1 MG PO SCH (10:18)
[2019-01-14] MEDS: levETIRAcetam TAB* 500 MG PO SCH ×2 (10:19→21:40)
[2019-01-14] MEDS ORDERED: Vancomycin Trough Check NOTE FOLLOW UP ONE (12:30)
[2019-01-14] MEDS: amLODIPine TAB* 5 MG PO SCH (16:20)
[2019-01-15 07:53] VITALS: BP 154/60
[2019-01-15] MEDS: levETIRAcetam TAB* 500 MG PO SCH (09:03)
[2019-01-15] MEDS: Folic Acid TAB* 1 MG PO SCH (09:03)
--- NOTE | 2019-01-15 09:53 | PN ---
Progress Note - Progress Note Date of Service: 01/15/19 SOAP: Subjective: 88 y/o male post bilateral SDH, with drain placement POD # 3. drains were removed yesterday and he was transferred to step down unit. Patient has been stable, he tolerating food and fluids orally. Patient is able to ambulate with out issues, he feels ready to go home. Objective: Vital Signs - 8 hr 01/15/19 01/15/19 01/15/19 03:55 07:52 08:00 Temperature 98.0 F 97.8 F Pulse Rate 58 55 Respiratory 16 17 17 Rate Blood Pressure 151/68 154/60 (mmHg) O2 Sat by Pulse 97 96 Oximetry Exam is unchanged. Derm. scalp wounds C/D/I Assessment: 88 y/o male post SDH drainage, has been stable throughout course of hospital stay, discussed patient with Dr. Peralta, feels patient is stable enough go home , pending clearance from medicine. Spoke with medicine team this morning, feels patient is stable to go home. Plan: Discharge home Follow up with PCP in 1 week. Follow up in neurosurgery clinic in 1 week.
== END 2019-01-15 11:25 | disposition home or self-care (01) | DRG 27 ==
LOC: AA 09:10 → ICU 17:35 → SSU 01-14 11:22
PROVIDERS: ADMIT Neurological Surgery; ATTEND Neurological Surgery
PROC: 009200Z Drainage of Dura Mater with Drainage Device, Open Approach (ICD-10-PCS; principal; 2019-01-12 11:15)
DX: S06.5X0A Traumatic subdural hemorrhage without loss of consciousness, initial encounter (principal); I48.2 Chronic atrial fibrillation; G93.89 Other specified disorders of brain; E83.51 Hypocalcemia; G83.21 Monoplegia of upper limb affecting right dominant side; I10 Essential (primary) hypertension; Z66 Do not resuscitate; E66.9 Obesity, unspecified; N40.0 Benign prostatic hyperplasia without lower urinary tract symptoms; W19.XXXA Unspecified fall, initial encounter; Z88.6 Allergy status to analgesic agent; Z88.1 Allergy status to other antibiotic agents; Z88.0 Allergy status to penicillin; Z79.01 Long term (current) use of anticoagulants; Z79.899 Other long term (current) drug therapy; Z87.891 Personal history of nicotine dependence; Z68.30 Body mass index [BMI] 30.0-30.9, adult; Y92.9 Unspecified place or not applicable
CPT/HCPCS: 36415; 70450; 80048; 83735; 85027; 85610; 85730; 87641; A9270-GY; J0610; J1100; J2001; J2250; J2405; J2704; J2710; J3010; J3370

== ENCOUNTER 2019-06-30 09:28 | Emergency (ER) | payer MEDICARE, BC ==
[2019-06-30 09:51] VITALS: BP 158/78
--- NOTE | 2019-06-30 10:45 | UC ---
Skin Complaint HPI - HPI Summary HPI Summary: 89-year-old male presents with complaints of a tender red rash with malodorous drainage to his left lower abdomen since yesterday. Denies fever, chills, changes in medications, diet, soaps, detergents, lotions, or known contact with environmental irritants. - History of Current Complaint Chief Complaint: UCRash Time Seen by Provider: 06/30/19 10:08 Stated Complaint: RASH Hx Obtained From: Patient Pain Intensity: 4 - Allergy/Home Medications Allergies/Adverse Reactions: Allergies Allergy/AdvReac Type Severity Reaction Status Date / Time ciprofloxacin [From Cipro] Allergy Severe Muscle Ache Verified 06/30/19 09:50 clindamycin Allergy Severe Hives Verified 06/30/19 09:50 Penicillins Allergy Severe Anaphylatic Verified 06/30/19 09:50 Shock ibuprofen AdvReac Severe GI Upset Verified 06/30/19 09:50 Home Medications: Home Medications Apixaban [Eliquis] 2.5 mg PO 06/30/19 [History] PMH/Surg Hx/FS Hx/Imm Hx Cardiovascular History: Hypertension, Atrial Fibrillation - Surgical History Surgical History: Yes Surgery Procedure, Year, and Place: appendectomy 193. right [place] [facility] [place]. 2 sudbural hematomas. double subderal hematomia evacuation - Family History Known Family History: Positive: Non-Contributory - Social History Occupation: Retired Lives: Alone Alcohol Use: None Substance Use Type: None Smoking Status (MU): Never Smoked Tobacco Type: Cigarettes Amount Used/How Often: 3/4 pack for 20 yrs Have You Smoked in the Last Year: No When Did the Patient Quit Smoking/Using Tobacco: 1959 - Immunization History Most Recent Influenza Vaccination: 2019 Most Recent Pneumonia Vaccination: 2018 Review of Systems All Other Systems Reviewed And Are Negative: Yes Constitutional: Negative: Fever, Chills Skin: Positive: Rash - See HPI Respiratory: Positive: Negative Cardiovascular: Positive: Negative Gastrointestinal: Positive: Negative Genitourinary: Positive: Negative Musculoskeletal: Positive: Negative Neurological: Positive: Negative Is Patient Immunocompromised?: No Physical Exam - Summary Physical Exam Summary: GENERAL APPEARANCE: Well developed, well nourished, alert and cooperative, and appears to be in no acute distress. CARDIAC: Normal S1 and S2. No S3, S4 or murmurs. Rhythm is regular. There is no peripheral edema, cyanosis or pallor. Extremities are warm and well perfused. Capillary refill is less than 2 seconds. Peripheral pulses intact. LUNGS: Clear to auscultation without rales, rhonchi, wheezing or diminished breath sounds. ABDOMEN: Positive bowel sounds. Soft, nondistended, nontender. No guarding or rebound. No masses or hepatosplenomegally. MUSKULOSKELETAL: ROM intact to all extremities. No joint erythema or tenderness. Normal muscular development. Normal gait. SKIN: Skin normal color, texture and turgor for age. Moist, erythematous, oval shaped patch within the abdominal panniculus of the left lower abdomen. Triage Information Reviewed: Yes Vital Signs: Initial Vital Signs Temp 98.2 F 06/30/19 09:45 Pulse 69 06/30/19 09:45 Resp 18 06/30/19 09:45 BP 158/78 06/30/19 09:45 Pulse Ox 99 06/30/19 09:45 Vital Signs Reviewed: Yes Course/Dx - Course Course Of Treatment: 89-year-old male presents with complaints of a tender red rash with malodorous drainage to his left lower abdomen since yesterday. Denies fever, chills, changes in medications, diet, soaps, detergents, lotions, or known contact with environmental irritants. Afebrile. Vital signs stable. On exam patient was noted to have a moist, erythematous, oval shaped patch within the abdominal panniculus of the left lower abdomen consistent with Yohana intertrigo. We'll start him on clotrimazole cream twice daily until clear. He is to follow-up with his primary care provider in 5-7 days if symptoms are not improving. Anticipatory guidance warning symptoms were reviewed with the patient. Verbalizes understanding and agrees with plan of care. - Differential Diagnoses - Skin Complaint Differential Diagnoses: Cellulitis, Local Allergic Reaction, Poison Erin, Poison [place]on, Tinea, Varicella Zoster - Diagnoses Provider Diagnosis: Candidal intertrigo Discharge ED - Sign-Out/Discharge Documenting (check all that apply): Patient Departure All imaging exams completed and their final reports reviewed: No Studies - Discharge Plan Condition: Stable Disposition: HOME Prescriptions: Clotrimazole 1% CREAM* [Clotrimazole 1%*] 1 applic TOPICAL BID #1 tube Patient Education Materials: Skin Yeast Infection (ED) Referrals: Midura,Paulo T, MD [Primary Care Provider] - 3 Days Additional Instructions: Your history and physical exam are consistent with a yeast infection of the skin. We will start you on an antifungal cream to treat the infection. Use clotrimazole twice daily to the affected area until clear. Keep the skin clean with a mild soap and water. Be sure to pat the skin thoroughly dry. You can use a powder such as corn starch to help absorb any excess moisture. Follow-up with your primary care provider in 5-7 days if no improvement in symptoms. Seek immediate medical attention in the emergency room if you develop a fever greater than 100.5 F, you have severe pain that is not managed with over-the- counter pain medication, you have redness that rapidly spreads, or any worsening of symptoms. - Billing Disposition and Condition Condition: STABLE Disposition: Home
== END 2019-06-30 11:00 | disposition home or self-care (01) ==
LOC: UCEAST 09:28
DX: B37.2 Candidiasis of skin and nail (principal); I10 Essential (primary) hypertension; I48.91 Unspecified atrial fibrillation; Z88.1 Allergy status to other antibiotic agents; Z88.0 Allergy status to penicillin; Z88.8 Allergy status to other drugs, medicaments and biological substances; Z79.01 Long term (current) use of anticoagulants
CPT/HCPCS: 99212; G0463